=== PATIENT | female | born 1965 | race Caucasian/White ===

== ENCOUNTER 2016-10-25 09:06 | Emergency (ER) | payer OTHER ==
[2016-10-25] MEDS ORDERED: ASPIRIN 81 MG CHEW PO STA (09:29)
[2016-10-25] MEDS ORDERED: MORPHINE SULFATE 2 MG/ML SYRINGE IVP STA (09:29)
[2016-10-25] MEDS ORDERED: SODIUM CHLORIDE 0.9% 1,000 ML IV STA (09:29)
--- NOTE | 2016-10-25 09:39 | ED ---
General Adult HPI - General Chief complaint: Abdominal Pain Stated complaint: abd pain Time Seen by Provider: 10/25/16 09:17 Source: patient, family, RN notes reviewed Mode of arrival: wheelchair Limitations: no limitations - History of Present Illness Initial comments: 50-year-old female presents emergency Department with a chief complaint of nausea vomiting. Patient states that she woke this morning and she developed a terrible pain. Patient points to the bottom of her stomach and to the top where the pain is. Patient states it had nausea vomiting she did feel sweaty as well as diarrhea. Patient states that she hasn't had any fever chills. Patient states she had a similar episode about one week ago she laid down and rested and seemed to resolve. Patient does admit to history of a pacemaker due to sick sinus syndrome. Patient states that her abdomen is not tender to touch. Patient states is just very painful. Patient states it feels like a crampy stabbing pain. Nothing seems to make it better. Patient denies any recent fever, chills, shortness of breath, back pain, numbness or tingling, dysuria or hematuria, constipation, headaches or visual changes, or any other current symptoms. - Related Data Home Medications Medication Instructions Recorded Confirmed ALPRAZolam [Xanax] 2 mg PO HS PRN 10/31/14 10/25/16 Hydrocodone/Acetaminophen [[place] 1 tab PO Q4-6H PRN 01/03/15 10/25/16 10-325] DULoxetine HCL [Cymbalta] 60 mg PO DAILY 10/25/16 10/25/16 Previous Rx's Medication Instructions Recorded Ondansetron Odt [Zofran ODT] 4 mg PO Q8HR PRN #20 tab 10/25/16 Allergies Allergy/AdvReac Type Severity Reaction Status Date / Time No Known Allergies Allergy Verified 10/25/16 09:50 Review of Systems ROS Statement: Those systems with pertinent positive or pertinent negative responses have been documented in the HPI. ROS Other: All systems not noted in ROS Statement are negative. Past Medical History Past Medical History: Cancer, Fibromyalgia, Thyroid Disorder Additional Past Medical History / Comment(s): HYPOTHYROID, LT Breast CA. HX radiation, osteopenia, sick sinus syndrome History of Any Multi-Drug Resistant Organisms: None Reported Past Surgical History: Breast Surgery, Cholecystectomy, Hysterectomy, Pacemaker , Tubal Ligation Additional Past Surgical History / Comment(s): PARTIAL LT MASTECTOMY, Past Anesthesia/Blood Transfusion Reactions: No Reported Reaction Type of Cardiac Device: Permanent Pacemaker Device Placement Date:: 03/09/15 Past Psychological History: Anxiety Smoking Status: Current every day smoker Past Alcohol Use History: Occasional Past Drug Use History: None Reported - Past Family History Father Family Medical History: No Reported History Mother Family Medical History: No Reported History Brother(s) Family Medical History: No Reported History Sister(s) Family Medical History: No Reported History Daughter(s) Family Medical History: No Reported History General Exam - General Exam Comments Initial Comments: General: The patient is awake and alert, in no distress, and does not appear acutely ill. Eye: Pupils are equal, round and reactive to light, extra-ocular movements are intact; there is normal conjunctiva bilaterally. No signs of icterus. Ears, nose, mouth and throat: There are moist mucous membranes and no oral lesions. Neck: The neck is supple, there is no tenderness. Cardiovascular: There is a regular rate and rhythm. No murmur, rub or gallop is appreciated. Respiratory: Lungs are clear to auscultation, respirations are non-labored, breath sounds are equal. No wheezes, stridor, rales, or rhonchi. Gastrointestinal: Soft, non-distended, non-tender abdomen without masses or organomegaly noted. There is no rebound or guarding present. No CVA tenderness. Bowel sounds are unremarkable. Back: There is no tenderness to palpation in the midline. There is no obvious deformity. No rashes noted. Musculoskeletal: Normal ROM, no tenderness, There is no pedal edema. There is no calf tenderness or swelling. Sensation intact. Pulses equal bilaterally 2+. Neurological: CN II-XII intact, There are no obvious motor or sensory deficits. Coordination appears grossly intact. Speech is normal. Skin: Skin is warm and dry and no rashes or lesions are noted. Psychiatric: Cooperative, appropriate mood & affect, normal judgment. Limitations: no limitations Course Vital Signs 10/25/16 09:09 Temperature 97.5 F L Pulse Rate 50 L Respiratory 20 Rate Blood Pressure 136/78 O2 Sat by Pulse 100 Oximetry EKG Findings - EKG Comments: EKG Findings:: Atrial paced rhythm 50bpm, normal axis, no atopy, no S-T depressions or elevations, prolonged QT Medical Decision Making - Medical Decision Making 50-year-old female presents emergency department with a chief complaint of nausea vomiting. Patient complains of chest and abdominal pain with a soft and nontender abdomen. At this time the patient is sleeping the room and states that she is feeling better. This time we will discharge the patient home. We did give her follow-up to GI. We did discuss return parameters. Patient is in agreement plan and all questions have been answered. They'll be discharged home. - Lab Data Result diagrams: 10/25/16 09:31 10/25/16 09:31 Lab Results 10/25/16 10/25/16 10/25/16 Range/Units 09:31 09:31 09:31 WBC 11.0 H (3.8-10.6) k/uL RBC 4.09 (3.80-5.40) m/uL Hgb 13.0 (11.4-16.0) gm/dL Hct 38.6 (34.0-46.0) % MCV 94.5 (80.0-100.0) fL MCH 31.9 (25.0-35.0) pg MCHC 33.8 (31.0-37.0) g/dL RDW 12.5 (11.5-15.5) % Plt Count 210 (150-450) k/uL Neutrophils % 85 % Lymphocytes % 10 % Monocytes % 3 % Eosinophils % 1 % Basophils % 1 % Neutrophils # 9.3 H (1.3-7.7) k/uL Lymphocytes # 1.0 (1.0-4.8) k/uL Monocytes # 0.4 (0-1.0) k/uL Eosinophils # 0.1 (0-0.7) k/uL Basophils # 0.1 (0-0.2) k/uL PT (9.0-12.0) sec INR (<1.1) APTT (22.0-30.0) sec Sodium 143 (137-145) mmol/L Potassium 4.0 (3.5-5.1) mmol/L Chloride 108 H (98-107) mmol/L Carbon Dioxide 26 (22-30) mmol/L Anion Gap 9 mmol/L BUN 16 (7-17) mg/dL Creatinine 0.72 (0.52-1.04) mg/dL Est GFR (MDRD) Af Amer >60 (>60 ml/min/1.73 sqM) Est GFR (MDRD) Non-Af >60 (>60 ml/min/1.73 sqM) Glucose 137 H (74-99) mg/dL Calcium 9.2 (8.4-10.2) mg/dL Magnesium 1.8 (1.6-2.3) mg/dL Total Bilirubin 0.5 (0.2-1.3) mg/dL AST 18 (14-36) U/L ALT 16 (9-52) U/L Alkaline Phosphatase 70 (38-126) U/L Total Creatine Kinase 116 (30-135) U/L CK-MB (CK-2) 0.8 (0.0-2.4) ng/mL CK-MB (CK-2) Rel Index 0.7 Troponin I <0.012 (0.000-0.034) ng/mL Total Protein 6.5 (6.3-8.2) g/dL Albumin 4.0 (3.5-5.0) g/dL Amylase 36 (30-110) U/L Lipase 43 (23-300) U/L Urine Color Urine Appearance (Clear) Urine pH (5.0-8.0) Ur Specific [place] (1.001-1.035) Urine Protein (Negative) Urine Glucose (UA) (Negative) Urine Ketones (Negative) Urine Blood (Negative) Urine Nitrite (Negative) Urine Bilirubin (Negative) Urine Urobilinogen (<2.0) mg/dL Ur Leukocyte Esterase (Negative) Urine WBC (0-5) /hpf Ur Squamous Epith Cells (0-4) /hpf Amorphous Sediment (None) /hpf Urine Mucus (None) /hpf 10/25/16 10/25/16 Range/Units 09:31 10:55 WBC (3.8-10.6) k/uL RBC (3.80-5.40) m/uL Hgb (11.4-16.0) gm/dL Hct (34.0-46.0) % MCV (80.0-100.0) fL MCH (25.0-35.0) pg MCHC (31.0-37.0) g/dL RDW (11.5-15.5) % Plt Count (150-450) k/uL Neutrophils % % Lymphocytes % % Monocytes % % Eosinophils % % Basophils % % Neutrophils # (1.3-7.7) k/uL Lymphocytes # (1.0-4.8) k/uL Monocytes # (0-1.0) k/uL Eosinophils # (0-0.7) k/uL Basophils # (0-0.2) k/uL PT 10.4 (9.0-12.0) sec INR 1.0 (<1.1) APTT 23.8 (22.0-30.0) sec Sodium (137-145) mmol/L Potassium (3.5-5.1) mmol/L Chloride (98-107) mmol/L Carbon Dioxide (22-30) mmol/L Anion Gap mmol/L BUN (7-17) mg/dL Creatinine (0.52-1.04) mg/dL Est GFR (MDRD) Af Amer (>60 ml/min/1.73 sqM) Est GFR (MDRD) Non-Af (>60 ml/min/1.73 sqM) Glucose (74-99) mg/dL Calcium (8.4-10.2) mg/dL Magnesium (1.6-2.3) mg/dL Total Bilirubin (0.2-1.3) mg/dL AST (14-36) U/L ALT (9-52) U/L Alkaline Phosphatase (38-126) U/L Total Creatine Kinase (30-135) U/L CK-MB (CK-2) (0.0-2.4) ng/mL CK-MB (CK-2) Rel Index Troponin I (0.000-0.034) ng/mL Total Protein (6.3-8.2) g/dL Albumin (3.5-5.0) g/dL Amylase (30-110) U/L Lipase (23-300) U/L Urine Color Yellow Urine Appearance Cloudy H (Clear) Urine pH 8.0 (5.0-8.0) Ur Specific [place] 1.010 (1.001-1.035) Urine Protein Negative (Negative) Urine Glucose (UA) Negative (Negative) Urine Ketones 1+ H (Negative) Urine Blood Negative (Negative) Urine Nitrite Negative (Negative) Urine Bilirubin Negative (Negative) Urine Urobilinogen <2.0 (<2.0) mg/dL Ur Leukocyte Esterase Negative (Negative) Urine WBC 2 (0-5) /hpf Ur Squamous Epith Cells 1 (0-4) /hpf Amorphous Sediment Occasional H (None) /hpf Urine Mucus Rare H (None) /hpf Disposition Clinical Impression: Nausea vomiting and diarrhea, Abdominal pain Disposition: HOME SELF-CARE Condition: Stable Instructions: Abdominal Pain (ED) Additional Instructions: Please use medication as discussed. Please follow up with family doctor if symptoms have not improved over the next two days. Please return to the emergency room if your symptoms increase or worsen or for any other concerns. Prescriptions: Ondansetron Odt [Zofran ODT] 4 mg PO Q8HR PRN #20 tab PRN Reason: Nausea Referrals: London Vera DO [Primary Care Provider] - 1-2 days Time of Disposition: 13:31
[2016-10-25] MEDS ORDERED: METOCLOPRAMIDE 5 MG/ML 2 ML VIAL IVP STA (09:46)
[2016-10-25 09:47] LABS: Basophils # (A) 0.1 k/uL (0-0.2); Basophils % (A) 1 %; CH 31.6; CHCM 33.6; Eosinophils # (A) 0.1 k/uL (0-0.7); Eosinophils % (A) 1 %; HCT 38.6 % (34.0-46.0); HDW 2.32; Luc # (Auto) 0.09; Luc % (Auto) 1; Lymphocytes % (A) 10 %; MCH 31.9 pg (25.0-35.0); MCHC 33.8 g/dL (31.0-37.0); MCV 94.5 fL (80.0-100.0); Mean Platelet Volume 7.7; Monocytes # (A) 0.4 k/uL (0-1.0); Monocytes % (A) 3 %; Neutrophils # (A) 9.3 k/uL (1.3-7.7); Neutrophils % (A) 85 %; RBC 4.09 m/uL (3.80-5.40); RDW 12.5 % (11.5-15.5); WBC (Perox) 11.11
[2016-10-25 09:51] LABS: Partial Thromboplastin Time 23.8 sec (22.0-30.0); Prothrombin Time 10.4 sec (9.0-12.0)
[2016-10-25 09:54] LABS: ALT 16 U/L (9-52); AST 18 U/L (14-36); Alkaline Phosphatase 70 U/L (38-126); Amylase 36 U/L (30-110); Anion Gap 9 mmol/L; Blood Urea Nitrogen 16 mg/dL (7-17); Calcium 9.2 mg/dL (8.4-10.2); Carbon Dioxide 26 mmol/L (22-30); Chloride 108 mmol/L (98-107); Glucose 137 mg/dL (74-99); Magnesium 1.8 mg/dL (1.6-2.3); Non-African American GFR(MDRD) >60 (>60 ml/min/1.73 sqM); Sodium 143 mmol/L (137-145); Total Bilirubin 0.5 mg/dL (0.2-1.3); Total Protein 6.5 g/dL (6.3-8.2)
[2016-10-25 10:10] LABS: Creatine Kinase 116 U/L (30-135)
--- NOTE | 2016-10-25 10:17 | XR ---
EXAMINATION TYPE: XR chest 2V DATE OF EXAM: 10/25/2016 COMPARISON: 03/10/2015 HISTORY: Shortness of breath TECHNIQUE: Frontal and lateral views of the chest are obtained. FINDINGS: Scattered senescent parenchymal changes noted. Hyperinflation compatible with COPD. No evidence for infiltrate. No evidence for atelectasis. Heart size is stable. Mediastinal structures are stable and grossly unremarkable. No evidence for hilar prominence. Degenerative changes dorsal spine. IMPRESSION: 1. No evidence for acute pulmonary disease.
[2016-10-25 10:24] LABS: Creatine Kinase MB 0.8 ng/mL (0.0-2.4); Troponin I <0.012 ng/mL (0.000-0.034)
[2016-10-25] MEDS ORDERED: RX INFO: IV CONTRAST WAS GIVEN 1 EACH MISC MISCELLANE PRN (10:58)
[2016-10-25] MEDS ORDERED: MORPHINE SULFATE 4 MG/ML SYRINGE IV STA (10:58)
[2016-10-25] MEDS ORDERED: DICYCLOMINE 10 MG/ML 2 ML AMP IM STA (11:03)
[2016-10-25 11:15] LABS: Amorphous Sediment,Urine Occasional /hpf; Appearance,Urine Cloudy (Clear); Bilirubin,Urine Negative (Negative); Glucose,Urine (UA) Negative (Negative); Ketones,Urine 1+ (Negative); Leukocyte Esterase,Urine Negative (Negative); Mucus,Urine Rare /hpf; Nitrite,Urine Negative (Negative); Particle Count 4814; Protein,Urine Negative (Negative); Squamous Epithelial Cell,Urine 1 /hpf (0-4); UA Billing (MACRO vs. MICRO) MICRO; Urobilinogen,Urine <2.0 mg/dL (<2.0); WBC,Urine 2 /hpf (0-5)
--- NOTE | 2016-10-25 12:08 | CT ---
EXAMINATION TYPE: CT abdomen pelvis w con DATE OF EXAM: 10/25/2016 COMPARISON: NONE INDICATION: nausea and vomitting, pain DLP: 476.6 mGycm, Automated exposure control for dose reduction was used. CONTRAST: 100 mL of Omnipaque 300. Study performed without Oral Contrast TECHNIQUE: Axial images were obtained from above the diaphragm to the pubic rami in the axial plane a t 5 mm thick sections. Reconstructed images are reviewed on the computer in the coronal plane. FINDINGS: Limited CT sections are obtained the lung bases. The lung bases are clear. CT ABDOMEN: Liver: Normal Spleen: Normal Pancreas: Slightly atrophic Adrenal glands: The adrenal glands are normal. Gallbladder: Normal Kidneys: No masses are evident. No hydronephrosis is present. No cysts are present. Delayed images were obtained through the kidneys, which remain unremarkable. Aorta: Vascular calcification is within the aorta. Inferior vena cava: Normal. CT PELVIS: Loops of bowel within the abdomen and pelvis are normal. Study is without oral contrast limiting the evaluation. Appendix: Normal as visualized. Urinary bladder: There may be some wall thickening diffusely. Correlate for cystitis. Genitourinary structures: Uterus and ovaries are not identified. Osseous structures: No suspicious lytic or sclerotic lesions. There is a mild scoliosis present. Some degenerative facet changes are within the lumbar spine. IMPRESSIONS: 1. Urinary bladder wall thickening diffusely. Consider cystitis. 2. Noncontrast imaging through the loops of bowel appear unremarkable.
[2016-10-25] MEDS ORDERED: HYDROmorphone 1 MG/ML 1 ML SYRINGE IVP STA (12:24)
[2016-10-25] MEDS ORDERED: FAMOTIDINE 20 MG/2 ML VIAL IV STA (12:38)
[2016-10-25 13:42] VITALS: BP 115/65; PULSE 57; RESP 18; TEMP 98.3
== END 2016-10-25 13:42 | disposition home or self-care (01) ==
LOC: EC 09:06
DX: R19.7 Diarrhea, unspecified (principal); R10.9 Unspecified abdominal pain; F41.9 Anxiety disorder, unspecified; F17.200 Nicotine dependence, unspecified, uncomplicated; Z85.3 Personal history of malignant neoplasm of breast; Z90.49 Acquired absence of other specified parts of digestive tract; Z79.899 Other long term (current) drug therapy
CPT/HCPCS: 99285; 96365; 96372; 96375 ×4; 96376; 96361; 36415; 93005; 80053; 82150; 82550; 82553; 83690; 83735; 84484; 85025; 85610; 85730; 81001; 71020; 74177; J2270 ×2; J0500; J2765; J0696; J1170; Q9967

== ENCOUNTER 2017-02-05 06:34 | Emergency (ER) | payer OTHER ==
--- NOTE | 2017-02-05 06:45 | ED ---
General Adult HPI - General Source: patient, RN notes reviewed, old records reviewed Mode of arrival: ambulatory Limitations: no limitations <Kerwin Gonzalez - Last Filed: 02/05/17 06:56> <Kerwin Mathews - Last Filed: 02/05/17 08:43> - General Chief complaint: Abdominal Pain Stated complaint: Nausea,Vomiting Time Seen by Provider: 02/05/17 06:45 - History of Present Illness Initial comments: This is a 51-year-old female to the ER for reevaluation ofabdominal pain severe in about pain nausea nausea and vomiting. Patient has had abdominal pain with nausea and vomiting 1 day. Patient does have some underlying history of cancer fibromyalgia. Patient denies fevers. No diarrhea. Patient does have history of gallbladder surgery. Patient states she was in this hospital waffled times this year for abdominal pain and has been unable to find exacerbating cause. (Kerwin Gonzalez) - Related Data Home Medications Medication Instructions Recorded Confirmed ALPRAZolam [Xanax] 2 mg PO HS PRN 10/31/14 02/05/17 Hydrocodone/Acetaminophen [[place] 1 tab PO Q4-6H PRN 01/03/15 02/05/17 10-325] DULoxetine HCL [Cymbalta] 60 mg PO DAILY 10/25/16 02/05/17 Previous Rx's Medication Instructions Recorded Ondansetron Odt [Zofran Odt] 4 mg PO Q6H PRN #10 tab 02/05/17 Allergies Allergy/AdvReac Type Severity Reaction Status Date / Time No Known Allergies Allergy Verified 02/05/17 07:12 Review of Systems ROS Other: All systems not noted in ROS Statement are negative. <Kerwin Gonzalez - Last Filed: 02/05/17 06:56> ROS Other: All systems not noted in ROS Statement are negative. <Kerwin Mathews - Last Filed: 02/05/17 08:43> ROS Statement: Those systems with pertinent positive or pertinent negative responses have been documented in the HPI. Past Medical History Past Medical History: Cancer, Fibromyalgia, Thyroid Disorder Additional Past Medical History / Comment(s): HYPOTHYROID, LT Breast CA. HX radiation, osteopenia, sick sinus syndrome History of Any Multi-Drug Resistant Organisms: None Reported Past Surgical History: Breast Surgery, Cholecystectomy, Hysterectomy, Pacemaker , Tubal Ligation Additional Past Surgical History / Comment(s): PARTIAL LT MASTECTOMY, Past Anesthesia/Blood Transfusion Reactions: No Reported Reaction Type of Cardiac Device: Permanent Pacemaker Device Placement Date:: 03/09/15 Past Psychological History: Anxiety Smoking Status: Current every day smoker Past Alcohol Use History: Occasional Past Drug Use History: None Reported - Past Family History Father Family Medical History: No Reported History Mother Family Medical History: No Reported History Brother(s) Family Medical History: No Reported History Sister(s) Family Medical History: No Reported History Daughter(s) Family Medical History: No Reported History <Kerwin Gonzalez - Last Filed: 02/05/17 06:56> General Exam Limitations: no limitations General appearance: alert, in no apparent distress Head exam: Present: atraumatic, normocephalic, normal inspection Eye exam: Present: normal appearance, PERRL, EOMI. Absent: scleral icterus, conjunctival injection, periorbital swelling ENT exam: Present: normal exam, mucous membranes moist Neck exam: Present: normal inspection. Absent: tenderness, meningismus, lymphadenopathy Respiratory exam: Present: normal lung sounds bilaterally. Absent: respiratory distress, wheezes, rales, rhonchi, stridor Cardiovascular Exam: Present: regular rate, normal rhythm, normal heart sounds. Absent: systolic murmur, diastolic murmur, rubs, gallop, clicks GI/Abdominal exam: Present: soft, normal bowel sounds. Absent: distended, tenderness, guarding, rebound, rigid Extremities exam: Present: normal inspection, full ROM, normal capillary refill. Absent: tenderness, pedal edema, joint swelling, calf tenderness Back exam: Present: normal inspection Neurological exam: Present: alert, oriented X3, CN II-XII intact Psychiatric exam: Present: normal affect, normal mood Skin exam: Present: warm, dry, intact, normal color. Absent: rash <Kerwin Gonzalez - Last Filed: 02/05/17 06:56> Medical Decision Making <Kerwin Gonzalez - Last Filed: 02/05/17 06:56> - Lab Data Result diagrams: 02/05/17 07:00 02/05/17 07:00 <Kerwin Mathews - Last Filed: 02/05/17 08:43> - Medical Decision Making I will begin the room to reevaluate the patient and she stated that she was feeling much better and she felt as though she could go home at this time. (Kerwin Mathews) - Lab Data Lab Results 02/05/17 02/05/17 02/05/17 Range/Units 07:00 07:00 07:00 WBC 13.2 H (3.8-10.6) k/uL RBC 4.41 (3.80-5.40) m/uL Hgb 14.0 (11.4-16.0) gm/dL Hct 42.7 (34.0-46.0) % MCV 96.8 (80.0-100.0) fL MCH 31.8 (25.0-35.0) pg MCHC 32.8 (31.0-37.0) g/dL RDW 12.4 (11.5-15.5) % Plt Count 290 (150-450) k/uL Neutrophils % 85 % Lymphocytes % 9 % Monocytes % 4 % Eosinophils % 1 % Basophils % 0 % Neutrophils # 11.3 H (1.3-7.7) k/uL Lymphocytes # 1.2 (1.0-4.8) k/uL Monocytes # 0.6 (0-1.0) k/uL Eosinophils # 0.1 (0-0.7) k/uL Basophils # 0.0 (0-0.2) k/uL Sodium 141 (137-145) mmol/L Potassium 3.7 (3.5-5.1) mmol/L Chloride 105 (98-107) mmol/L Carbon Dioxide 23 (22-30) mmol/L Anion Gap 13 mmol/L BUN 14 (7-17) mg/dL Creatinine 0.63 (0.52-1.04) mg/dL Est GFR (MDRD) Af Amer >60 (>60 ml/min/1.73 sqM) Est GFR (MDRD) Non-Af >60 (>60 ml/min/1.73 sqM) Glucose 120 H (74-99) mg/dL Plasma Lactic Acid Tj 1.9 (0.7-2.0) mmol/L Calcium 9.6 (8.4-10.2) mg/dL Total Bilirubin 0.5 (0.2-1.3) mg/dL AST 22 (14-36) U/L ALT 27 (9-52) U/L Alkaline Phosphatase 65 (38-126) U/L Total Protein 7.4 (6.3-8.2) g/dL Albumin 4.7 (3.5-5.0) g/dL Amylase <30 L (30-110) U/L Lipase 29 (23-300) U/L Disposition <Kerwin Gonzalez - Last Filed: 02/05/17 06:56> Time of Disposition: 08:42 <Kerwin Mathews - Last Filed: 02/05/17 08:43> Clinical Impression: Acute vomiting, Abdominal pain Disposition: HOME SELF-CARE Instructions: Abdominal Pain (ED), Acute Nausea and Vomiting (ED) Prescriptions: Ondansetron Odt [Zofran Odt] 4 mg PO Q6H PRN #10 tab PRN Reason: Nausea And Vomiting Referrals: London Vera DO [Primary Care Provider] - 1-2 days
[2017-02-05] MEDS ORDERED: MORPHINE SULFATE 4 MG/ML SYRINGE IV STA (06:46)
[2017-02-05] MEDS ORDERED: ONDANSETRON 4 MG/2 ML VIAL IVP STA (06:46)
[2017-02-05] MEDS ORDERED: SODIUM CHLORIDE 0.9% 500 ML IV STA (06:46)
[2017-02-05] MEDS ORDERED: SODIUM CHLORIDE 0.9% 1,000 ML IV STA (06:46)
[2017-02-05] MEDS ORDERED: LORazepam 2 MG/ML INJ IV STA (06:56)
[2017-02-05] MEDS ORDERED: RX INFO: IV CONTRAST WAS GIVEN 1 EACH MISC MISCELLANE PRN (06:56)
[2017-02-05 07:19] LABS: Basophils % (A) 0 %; CH 31.4; CHCM 32.6; Eosinophils # (A) 0.1 k/uL (0-0.7); Eosinophils % (A) 1 %; HCT 42.7 % (34.0-46.0); HDW 2.22; Luc # (Auto) 0.11; Luc % (Auto) 1; Lymphocytes # (A) 1.2 k/uL (1.0-4.8); Lymphocytes % (A) 9 %; MCH 31.8 pg (25.0-35.0); MCHC 32.8 g/dL (31.0-37.0); MCV 96.8 fL (80.0-100.0); Mean Platelet Volume 7.3; Monocytes # (A) 0.6 k/uL (0-1.0); Monocytes % (A) 4 %; Neutrophils # (A) 11.3 k/uL (1.3-7.7); Neutrophils % (A) 85 %; RBC 4.41 m/uL (3.80-5.40); RDW 12.4 % (11.5-15.5); WBC 13.2 k/uL (3.8-10.6); WBC (Perox) 13.71
[2017-02-05 07:24] LABS: ALT 27 U/L (9-52); AST 22 U/L (14-36); Alkaline Phosphatase 65 U/L (38-126); Amylase <30 U/L (30-110); Anion Gap 13 mmol/L; Blood Urea Nitrogen 14 mg/dL (7-17); Calcium 9.6 mg/dL (8.4-10.2); Carbon Dioxide 23 mmol/L (22-30); Chloride 105 mmol/L (98-107); Glucose 120 mg/dL (74-99); Non-African American GFR(MDRD) >60 (>60 ml/min/1.73 sqM); Potassium 3.7 mmol/L (3.5-5.1); Sodium 141 mmol/L (137-145); Total Bilirubin 0.5 mg/dL (0.2-1.3); Total Protein 7.4 g/dL (6.3-8.2)
[2017-02-05 07:59] VITALS: PULSE 55; RESP 18
--- NOTE | 2017-02-05 08:00 | CT ---
EXAMINATION TYPE: CT abdomen pelvis w con DATE OF EXAM: 02/05/2017 COMPARISON: 10/25/2016 HISTORY: 51-year-old female Pain TECHNIQUE: Contiguous axial scanning of the abdomen and pelvis following administration of 100 ml Omn ipaque 300 IV contrast. Delayed images through the kidneys and coronal/sagittal reconstructions perf ormed. CT DLP: 304.1 mGycm Automated exposure control for dose reduction was used. FINDINGS: Heart is normal size without pericardial effusion. A right ventricular pacer lead is seen. Tiny hiatal hernia. There may be some mild gastric fold thickening along the fundus and body. These is a 6 mm hyperdense blush in the left hepatic lobe, axial image 12 which equilibrates on the d elayed kidney images suggesting some vascular shunting. A second similar area is present in the infer ior right hepatic lobe, axial image 25. These were not clearly seen previously. Portal venous system is patent. No biliary ductal dilatation. Patient is status post cholecystectomy. Adrenal glands, right kidney, spleen, and pancreas appear within normal limits. Extrarenal pelvis on the left. No dilated small bowel, free fluid, or free air. No mesenteric or retroperitoneal lymphadenopathy. Normal appendix is seen. Mild circumferential wall thickening at the splenic flexure may relate to un derdistention, axial image 20. There is sigmoid diverticulosis without pericolonic inflammatory richey e. Bladder is urine distended. Small amount of right adnexal free fluid is demonstrated. Neither ovary i s visualized and could be small or surgically absent. Uterus surgically absent. Pelvic phleboliths. Bones: No osseous destructive process. IMPRESSION: 1. Possible mild gastric fold thickening and hyperemia along the fundus and proximal body could refle ct gastritis. Small hiatal hernia. 2. Mild circumferential wall thickening at the splenic flexure could relate to underdistention or con current mild colitis. 3. A couple subcentimeter hypervascular foci in the liver not clearly seen previously. These seem to equilibrate on the delayed kidney images and vascular shunting is suspected. As a precautionary measu re, 6 month follow-up CT recommended given the patient's history of breast cancer. 4. Nonspecific small amount of free fluid in the right pelvis.
[2017-02-05 08:55] VITALS: BP 136/78; TEMP 99.6
== END 2017-02-05 08:53 | disposition home or self-care (01) ==
LOC: EC 06:34
DX: R10.9 Unspecified abdominal pain (principal); R11.10 Vomiting, unspecified; M79.7 Fibromyalgia; F41.9 Anxiety disorder, unspecified; F17.200 Nicotine dependence, unspecified, uncomplicated; Z85.3 Personal history of malignant neoplasm of breast; Z90.49 Acquired absence of other specified parts of digestive tract; Z90.710 Acquired absence of both cervix and uterus; Z98.51 Tubal ligation status; Z79.899 Other long term (current) drug therapy
CPT/HCPCS: 99284 ×2; 96374 ×2; 96375 ×3; 96361 ×3; 36415; 80053; 82150; 83605; 83690; 85025; 74177; J2060; J2270; J2405; Q9967

== ENCOUNTER 2017-02-10 13:07 | Emergency (ER) | payer OTHER ==
[2017-02-10 13:18] VITALS: RESP 18
[2017-02-10] MEDS ORDERED: ONDANSETRON 4 MG/2 ML VIAL IVP STA (13:23)
[2017-02-10] MEDS ORDERED: KETOROLAC 30 MG/ML 1 ML VIAL IVP STA (13:23)
[2017-02-10] MEDS ORDERED: SODIUM CHLORIDE 0.9% 1,000 ML IV STA ×2 (13:23)
[2017-02-10] MEDS ORDERED: MORPHINE SULFATE 4 MG/ML SYRINGE IV STA (13:23)
[2017-02-10] MEDS ORDERED: SODIUM CHLORIDE 0.9% 500 ML IV STA (13:23)
[2017-02-10] MEDS ORDERED: MORPHINE SULFATE 2 MG/ML SYRINGE IV STA (13:27)
[2017-02-10 13:48] LABS: Basophils # (A) 0.1 k/uL (0-0.2); Basophils % (A) 0 %; CH 31.3; CHCM 33.4; Eosinophils # (A) 0.1 k/uL (0-0.7); Eosinophils % (A) 1 %; HCT 39.6 % (34.0-46.0); HDW 2.43; HGB 13.3 gm/dL (11.4-16.0); Luc # (Auto) 0.11; Luc % (Auto) 1; Lymphocytes # (A) 1.2 k/uL (1.0-4.8); Lymphocytes % (A) 11 %; MCH 31.5 pg (25.0-35.0); MCHC 33.5 g/dL (31.0-37.0); Mean Platelet Volume 7.3; Monocytes # (A) 0.4 k/uL (0-1.0); Monocytes % (A) 4 %; Neutrophils # (A) 9.2 k/uL (1.3-7.7); Neutrophils % (A) 84 %; RBC 4.21 m/uL (3.80-5.40); WBC 11.1 k/uL (3.8-10.6); WBC (Perox) 10.66
[2017-02-10 14:00] LABS: Appearance,Urine Clear (Clear); Bilirubin,Urine Negative (Negative); Glucose,Urine (UA) Negative (Negative); Ketones,Urine 1+ (Negative); Leukocyte Esterase,Urine Negative (Negative); Nitrite,Urine Negative (Negative); Protein,Urine Negative (Negative); Specific Gravity,Urine 1.008 (1.001-1.035); UA Billing (MACRO vs. MICRO) CHEM; Urobilinogen,Urine <2.0 mg/dL (<2.0)
[2017-02-10 14:01] LABS: ALT 31 U/L (9-52); AST 20 U/L (14-36); Alkaline Phosphatase 75 U/L (38-126); Anion Gap 11 mmol/L; Blood Urea Nitrogen 6 mg/dL (7-17); Calcium 9.5 mg/dL (8.4-10.2); Carbon Dioxide 26 mmol/L (22-30); Chloride 105 mmol/L (98-107); Glucose 103 mg/dL (74-99); Magnesium 1.7 mg/dL (1.6-2.3); Non-African American GFR(MDRD) >60 (>60 ml/min/1.73 sqM); Phosphorus 2.5 mg/dL (2.5-4.5); Potassium 3.4 mmol/L (3.5-5.1); Sodium 142 mmol/L (137-145); Total Bilirubin 0.5 mg/dL (0.2-1.3); Total Protein 6.8 g/dL (6.3-8.2)
[2017-02-10 14:10] LABS: Creatine Kinase 59 U/L (30-135)
[2017-02-10 14:24] LABS: Creatine Kinase MB 0.5 ng/mL (0.0-2.4); Troponin I <0.012 ng/mL (0.000-0.034)
[2017-02-10 14:25] VITALS: PULSE 68
[2017-02-10] MEDS ORDERED: DICYCLOMINE 10 MG/ML 2 ML AMP IM STA (14:39)
[2017-02-10] MEDS ORDERED: POTASSIUM BICARB-CITRIC ACID 25 MEQ TABLET.EFF PO STA (14:40)
[2017-02-10] MEDS ORDERED: PROCHLORPERAZINE 5 MG TAB PO STA (14:41)
--- NOTE | 2017-02-10 14:46 | ED ---
General Adult HPI - General Chief complaint: Nausea/Vomiting/Diarrhea Stated complaint: Headache Time Seen by Provider: 02/10/17 13:22 Source: patient, EMS, RN notes reviewed, old records reviewed Mode of arrival: EMS Limitations: no limitations - History of Present Illness Initial comments: This is a 51-year-old female to the ER for reevaluation of dull pain, intractable nausea, vomiting. Sudden onset this afternoon. Patient has history of similar episode before. ER visit about a week ago for same. No fevers. No diarrhea. Patient does have history of bowel disease, she has her gallbladder removed as well as a hysterectomy. Patient also take colonoscopy, patient has seen GI in the past - Related Data Home Medications Medication Instructions Recorded Confirmed Hydrocodone/Acetaminophen [[place] 1 tab PO Q4-6H PRN 01/03/15 02/10/17 10-325] DULoxetine HCL [Cymbalta] 60 mg PO DAILY 10/25/16 02/10/17 ALPRAZolam [Xanax] 1 mg PO HS PRN 02/10/17 02/10/17 Previous Rx's Medication Instructions Recorded Ondansetron Odt [Zofran Odt] 4 mg PO Q6H PRN #10 tab 02/05/17 Dicyclomine [Bentyl] 20 mg PO QID #30 tablet 02/10/17 Prochlorperazine [Compazine] 5 mg PO Q6HR PRN #30 tab 02/10/17 Allergies Allergy/AdvReac Type Severity Reaction Status Date / Time No Known Allergies Allergy Verified 02/10/17 13:57 Review of Systems ROS Statement: Those systems with pertinent positive or pertinent negative responses have been documented in the HPI. ROS Other: All systems not noted in ROS Statement are negative. Past Medical History Past Medical History: Cancer, Fibromyalgia, Thyroid Disorder Additional Past Medical History / Comment(s): HYPOTHYROID, LT Breast CA. HX radiation, osteopenia, sick sinus syndrome History of Any Multi-Drug Resistant Organisms: None Reported Past Surgical History: Breast Surgery, Cholecystectomy, Hysterectomy, Pacemaker , Tubal Ligation Additional Past Surgical History / Comment(s): PARTIAL LT MASTECTOMY, Past Anesthesia/Blood Transfusion Reactions: No Reported Reaction Type of Cardiac Device: Permanent Pacemaker Device Placement Date:: 03/09/15 Past Psychological History: Anxiety Smoking Status: Current every day smoker Past Alcohol Use History: Occasional Past Drug Use History: Marijuana - Past Family History Father Family Medical History: No Reported History Mother Family Medical History: No Reported History Brother(s) Family Medical History: No Reported History Sister(s) Family Medical History: No Reported History Daughter(s) Family Medical History: No Reported History General Exam Limitations: no limitations General appearance: alert, in no apparent distress Head exam: Present: atraumatic, normocephalic, normal inspection Eye exam: Present: normal appearance, PERRL, EOMI. Absent: scleral icterus, conjunctival injection, periorbital swelling ENT exam: Present: normal exam, mucous membranes moist Neck exam: Present: normal inspection. Absent: tenderness, meningismus, lymphadenopathy Respiratory exam: Present: normal lung sounds bilaterally. Absent: respiratory distress, wheezes, rales, rhonchi, stridor Cardiovascular Exam: Present: regular rate, normal rhythm, normal heart sounds. Absent: systolic murmur, diastolic murmur, rubs, gallop, clicks GI/Abdominal exam: Present: soft, normal bowel sounds. Absent: distended, tenderness, guarding, rebound, rigid Extremities exam: Present: normal inspection, full ROM, normal capillary refill. Absent: tenderness, pedal edema, joint swelling, calf tenderness Back exam: Present: normal inspection Neurological exam: Present: alert, oriented X3, CN II-XII intact Psychiatric exam: Present: normal affect, normal mood Skin exam: Present: warm, dry, intact, normal color. Absent: rash Course Vital Signs 02/10/17 02/10/17 13:14 14:23 Temperature 97.1 F L Pulse Rate 63 68 Respiratory 18 18 Rate Blood Pressure 117/62 96/53 O2 Sat by Pulse 100 98 Oximetry - Reevaluation(s) Reevaluation #1: 02/10/17 14:45 Upon reevaluation patient's symptoms are resolved Reevaluation #2: 02/10/17 14:45 Prior ER visit has been reviewed Medical Decision Making - Medical Decision Making 51 female date ER for evaluation today. Patient comes for evaluation regarding abdominal pain nausea vomiting. PAtient will follow up with GI - Lab Data Result diagrams: 02/10/17 13:33 02/10/17 13:33 Lab Results 02/10/17 02/10/17 02/10/17 Range/Units 13:33 13:33 13:33 WBC 11.1 H (3.8-10.6) k/uL RBC 4.21 (3.80-5.40) m/uL Hgb 13.3 (11.4-16.0) gm/dL Hct 39.6 (34.0-46.0) % MCV 94.0 (80.0-100.0) fL MCH 31.5 (25.0-35.0) pg MCHC 33.5 (31.0-37.0) g/dL RDW 12.0 (11.5-15.5) % Plt Count 285 (150-450) k/uL Neutrophils % 84 % Lymphocytes % 11 % Monocytes % 4 % Eosinophils % 1 % Basophils % 0 % Neutrophils # 9.2 H (1.3-7.7) k/uL Lymphocytes # 1.2 (1.0-4.8) k/uL Monocytes # 0.4 (0-1.0) k/uL Eosinophils # 0.1 (0-0.7) k/uL Basophils # 0.1 (0-0.2) k/uL Sodium 142 (137-145) mmol/L Potassium 3.4 L (3.5-5.1) mmol/L Chloride 105 (98-107) mmol/L Carbon Dioxide 26 (22-30) mmol/L Anion Gap 11 mmol/L BUN 6 L (7-17) mg/dL Creatinine 0.64 (0.52-1.04) mg/dL Est GFR (MDRD) Af Amer >60 (>60 ml/min/1.73 sqM) Est GFR (MDRD) Non-Af >60 (>60 ml/min/1.73 sqM) Glucose 103 H (74-99) mg/dL Calcium 9.5 (8.4-10.2) mg/dL Phosphorus 2.5 (2.5-4.5) mg/dL Magnesium 1.7 (1.6-2.3) mg/dL Total Bilirubin 0.5 (0.2-1.3) mg/dL AST 20 (14-36) U/L ALT 31 (9-52) U/L Alkaline Phosphatase 75 (38-126) U/L Total Creatine Kinase 59 (30-135) U/L CK-MB (CK-2) 0.5 (0.0-2.4) ng/mL CK-MB (CK-2) Rel Index 0.8 Troponin I <0.012 (0.000-0.034) ng/mL Total Protein 6.8 (6.3-8.2) g/dL Albumin 4.1 (3.5-5.0) g/dL Urine Color Urine Appearance (Clear) Urine pH (5.0-8.0) Ur Specific [place] (1.001-1.035) Urine Protein (Negative) Urine Glucose (UA) (Negative) Urine Ketones (Negative) Urine Blood (Negative) Urine Nitrite (Negative) Urine Bilirubin (Negative) Urine Urobilinogen (<2.0) mg/dL Ur Leukocyte Esterase (Negative) 02/10/17 Range/Units 13:50 WBC (3.8-10.6) k/uL RBC (3.80-5.40) m/uL Hgb (11.4-16.0) gm/dL Hct (34.0-46.0) % MCV (80.0-100.0) fL MCH (25.0-35.0) pg MCHC (31.0-37.0) g/dL RDW (11.5-15.5) % Plt Count (150-450) k/uL Neutrophils % % Lymphocytes % % Monocytes % % Eosinophils % % Basophils % % Neutrophils # (1.3-7.7) k/uL Lymphocytes # (1.0-4.8) k/uL Monocytes # (0-1.0) k/uL Eosinophils # (0-0.7) k/uL Basophils # (0-0.2) k/uL Sodium (137-145) mmol/L Potassium (3.5-5.1) mmol/L Chloride (98-107) mmol/L Carbon Dioxide (22-30) mmol/L Anion Gap mmol/L BUN (7-17) mg/dL Creatinine (0.52-1.04) mg/dL Est GFR (MDRD) Af Amer (>60 ml/min/1.73 sqM) Est GFR (MDRD) Non-Af (>60 ml/min/1.73 sqM) Glucose (74-99) mg/dL Calcium (8.4-10.2) mg/dL Phosphorus (2.5-4.5) mg/dL Magnesium (1.6-2.3) mg/dL Total Bilirubin (0.2-1.3) mg/dL AST (14-36) U/L ALT (9-52) U/L Alkaline Phosphatase (38-126) U/L Total Creatine Kinase (30-135) U/L CK-MB (CK-2) (0.0-2.4) ng/mL CK-MB (CK-2) Rel Index Troponin I (0.000-0.034) ng/mL Total Protein (6.3-8.2) g/dL Albumin (3.5-5.0) g/dL Urine Color Yellow Urine Appearance Clear (Clear) Urine pH 7.0 (5.0-8.0) Ur Specific [place] 1.008 (1.001-1.035) Urine Protein Negative (Negative) Urine Glucose (UA) Negative (Negative) Urine Ketones 1+ H (Negative) Urine Blood Negative (Negative) Urine Nitrite Negative (Negative) Urine Bilirubin Negative (Negative) Urine Urobilinogen <2.0 (<2.0) mg/dL Ur Leukocyte Esterase Negative (Negative) Disposition Clinical Impression: Food poisoning, Abdominal pain, Intractable nausea and vomiting Disposition: HOME SELF-CARE Condition: Good Instructions: Acute Nausea and Vomiting (ED), Abdominal Pain (ED) Prescriptions: Dicyclomine [Bentyl] 20 mg PO QID #30 tablet Prochlorperazine [Compazine] 5 mg PO Q6HR PRN #30 tab PRN Reason: Nausea Referrals: Alessandro Dutton MD [STAFF PHYSICIAN] - 1-2 days Andreia Conner MD [STAFF PHYSICIAN] - 1-2 days
[2017-02-10 15:07] VITALS: BP 116/63; TEMP 98.1
== END 2017-02-10 15:10 | disposition home or self-care (01) ==
LOC: EC 13:07
DX: A05.9 Bacterial foodborne intoxication, unspecified (principal); F41.9 Anxiety disorder, unspecified; F17.200 Nicotine dependence, unspecified, uncomplicated; Z79.899 Other long term (current) drug therapy; Z85.3 Personal history of malignant neoplasm of breast; Z92.3 Personal history of irradiation; Z90.12 Acquired absence of left breast and nipple; Z90.49 Acquired absence of other specified parts of digestive tract
CPT/HCPCS: 99285 ×2; 96374 ×2; 96375 ×3; 96361 ×2; 96372 ×2; 36415; 80053; 82550; 82553; 83735; 84100; 84484; 85025; 81003; S0183; J0500; J2405; J1885; J2270

== ENCOUNTER → 2018-03-03 | Outpatient (CLI) | payer OTHER ==
--- NOTE | 2018-03-03 08:34 | CT ---
EXAMINATION TYPE: CT cervical spine wo con DATE OF EXAM: 03/03/2018 COMPARISON: NONE HISTORY: Cervicalgia per order. Headaches with neck and back pain per patient. CT DLP: 280.9 mGycm. Automated Exposure Control for Dose Reduction was Utilized. TECHNIQUE: CT scan of the cervical spine is obtained without contrast, axial images are obtained, sa gittal and coronal reformatted images are also reviewed. FINDINGS: Cervical spine is visualized in its entirety from C1 through upper thoracic levels, demonst rates satisfactory alignment without evidence of acute fracture or dislocation. Prevertebral soft ti ssue appears within normal limits. The C1-C2 articulation is within normal limits on the coronal rufino ges. Osseous structures are demineralized. Vertebral body heights and disc space heights however are maintained. No large posterior disc herniations are seen on sagittal images. No significant spurring is noted. There is small right foraminal spur disc complex causing asymmetric mild right-sided neural foraminal narrowing series 9 image 44 and sagittal image 18 series 12. Review of axial images otherwise shows no significant spinal canal stenosis or neural foraminal narrowing at any cervical level. Thyroid gla nd is felt within normal limits in size. Visualized lung apices show mild to moderate pleural/parench ymal scarring. There is partial visualization of pacemaker wires. IMPRESSION: There is small spur disc complex causing mild right-sided neural foraminal narrowing C4-C 5 level.
== END | disposition home or self-care (01) ==
LOC: RADCTMAIN 07:29
PROVIDERS: ATTEND Psychiatry & Neurology Neurology
DX: M99.71 Connective tissue and disc stenosis of intervertebral foramina of cervical region (principal)
CPT/HCPCS: 72125

== ENCOUNTER → 2018-06-15 | Outpatient (CLI) | payer OTHER ==
--- NOTE | 2018-06-15 09:33 | CT ---
EXAMINATION TYPE: CT thoracic spine wo con DATE OF EXAM: 06/15/2018 COMPARISON: None HISTORY: Mid back pain CT DLP: 409.8 mGycm Automated exposure control for dose reduction was used. TECHNIQUE: Axial images 3 mm thick sections. Reconstructed images in the coronal and sagittal plane. FINDINGS: Vertebral body heights are preserved. There is mild disc space narrowing which appears chronic. Coupl e of some minimal vacuum disc. No significant disc bulging is evident. No spinal canal stenosis prese nt. No focal disc herniations are identified. There is some slight exaggeration of the thoracic kypho sis within the mid thoracic spine. IMPRESSION: 1. THORACIC KYPHOSIS. 2. MILD DEGENERATIVE DISC CHANGES.
== END | disposition home or self-care (01) ==
LOC: RADCTMAIN 07:39
PROVIDERS: ATTEND Psychiatry & Neurology Neurology
DX: M47.814 Spondylosis without myelopathy or radiculopathy, thoracic region (principal); M40.204 Unspecified kyphosis, thoracic region
CPT/HCPCS: 72128

== ENCOUNTER 2018-08-26 16:32 | Inpatient (IN) | payer OTHER ==
[2018-08-26] MEDS ORDERED: SODIUM CHLORIDE 0.9% 1,000 ML IV STA (17:40)
--- NOTE | 2018-08-26 17:44 | ED ---
General Adult HPI - General Chief complaint: Dizziness Stated complaint: dizzy Time Seen by Provider: 08/26/18 17:07 Source: patient, family, RN notes reviewed Mode of arrival: wheelchair Limitations: no limitations - History of Present Illness Initial comments: Patient is a pleasant 52-year-old female presenting to the emergency department with concern for dizziness. Onset of symptoms was 10 AM at yoga. Patient feels like her whole body is spinning. Patient states symptoms are worse when she gets up and moves around. Daughter is concerned that patient appears off balance. Patient was somewhat slow to respond earlier. Patient states she feel s like her left arm is heavy. Patient states she noticed her left arm being heavy just after this, maybe 10:30 AM. Symptoms have been steady throughout the day. Patient did have a dizziness episode years ago that was somewhat similar. Patient does have associated nausea. - Related Data Home Medications Medication Instructions Recorded Confirmed ALPRAZolam [Xanax] 1 mg PO HS PRN 02/10/17 08/26/18 Cyclobenzaprine [Flexeril] 10 mg PO TID PRN 08/26/18 08/26/18 HYDROcodone/APAP 7.5-325MG [[place] 1 tab PO BID PRN 08/26/18 08/26/18 7.5-325] Ibuprofen [Motrin] 800 mg PO TID PRN 08/26/18 08/26/18 SUMAtriptan SUCCINATE [Imitrex] 50 mg PO BID PRN 08/26/18 08/26/18 Allergies Allergy/AdvReac Type Severity Reaction Status Date / Time No Known Allergies Allergy Verified 08/26/18 18:03 Review of Systems ROS Statement: Those systems with pertinent positive or pertinent negative responses have been documented in the HPI. ROS Other: All systems not noted in ROS Statement are negative. Constitutional: Denies: fever Eyes: Denies: eye pain ENT: Denies: ear pain Respiratory: Denies: cough Cardiovascular: Denies: chest pain Endocrine: Denies: fatigue Gastrointestinal: Denies: abdominal pain Genitourinary: Denies: dysuria Musculoskeletal: Denies: back pain Skin: Denies: rash Neurological: Reports: as per HPI, vertigo. Denies: headache Past Medical History Past Medical History: Cancer, Fibromyalgia, Thyroid Disorder Additional Past Medical History / Comment(s): HYPOTHYROID, LT Breast CA. HX radiation, osteopenia, sick sinus syndrome History of Any Multi-Drug Resistant Organisms: None Reported Past Surgical History: Breast Surgery, Cholecystectomy, Hysterectomy, Pacemaker, Tubal Ligation Additional Past Surgical History / Comment(s): PARTIAL LT MASTECTOMY, Past Anesthesia/Blood Transfusion Reactions: No Reported Reaction Type of Cardiac Device: Permanent Pacemaker Device Placement Date:: 03/09/15 Past Psychological History: Anxiety Smoking Status: Current every day smoker Past Alcohol Use History: Occasional Past Drug Use History: Marijuana - Past Family History Father Family Medical History: No Reported History Mother Family Medical History: No Reported History Brother(s) Family Medical History: No Reported History Sister(s) Family Medical History: No Reported History Daughter(s) Family Medical History: No Reported History General Exam Limitations: no limitations General appearance: alert, in no apparent distress Head exam: Present: atraumatic, normocephalic Eye exam: Present: normal appearance, PERRL, EOMI. Absent: nystagmus ENT exam: Present: normal oropharynx Neck exam: Present: normal inspection Respiratory exam: Present: normal lung sounds bilaterally Cardiovascular Exam: Present: regular rate, normal rhythm GI/Abdominal exam: Present: soft. Absent: tenderness Extremities exam: Present: normal inspection Neurological exam: Present: alert, oriented X3, CN II-XII intact Expanded Neurological exam: Present: protecting the airway Patient oriented to: Present: person, place, time Speech: Present: fluid speech Cranial nerves: EOM's Intact: Normal, Facial Sensation: Normal Cerebellar function: Finger to Nose: Normal Sensory exam: Upper Extremity Light Touch: Normal, Lower Extremity Light Touch: Normal Motor strength exam: RUE: 5, LUE: 4, RLE: 5, LLE: 4 Eye Response: (4) open spontaneously Motor Response: (6) obeys commands Verbal Response: (5) oriented Psychiatric exam: Present: normal affect, normal mood Skin exam: Present: normal color Course Vital Signs 08/26/18 08/26/18 08/26/18 17:02 17:45 18:00 Temperature 98.1 F Pulse Rate 73 70 74 Respiratory 18 18 18 Rate Blood Pressure 99/62 95/72 99/61 O2 Sat by Pulse 98 100 98 Oximetry 08/26/18 08/26/18 08/26/18 18:15 18:30 18:45 Temperature Pulse Rate 71 70 70 Respiratory 18 18 18 Rate Blood Pressure 110/88 106/73 99/71 O2 Sat by Pulse 96 98 96 Oximetry 08/26/18 19:00 Temperature Pulse Rate 67 Respiratory 18 Rate Blood Pressure 112/90 O2 Sat by Pulse 96 Oximetry - Reevaluation(s) Reevaluation #1: 08/26/18 17:43 Code stroke was called. Patient is not a TPA candidate secondary to onset of symptoms greater than 4 and half hours. EKG Findings - EKG Comments: EKG Findings:: Normal sinus rhythm 71. [place] 172. QRS 86. QT 416. QTc 452. Normal axis. Normal QRS. No acute ST change. Medical Decision Making - Medical Decision Making Patient reevaluated and resting comfortably in bed without significant change. Patient is updated on results and plan. Case was discussed in detail with Dr. Rodriguez, who will admit covering for Dr. Wade. Case was earlier discussed with Dr. rodriguez who agreed patient is not a TPA candidate. - Lab Data Result diagrams: 08/26/18 17:50 08/26/18 17:50 Lab Results 08/26/18 08/26/18 08/26/18 Range/Units 17:50 17:50 17:50 WBC 6.6 (3.8-10.6) k/uL RBC 3.91 (3.80-5.40) m/uL Hgb 10.9 L (11.4-16.0) gm/dL Hct 37.0 (34.0-46.0) % MCV 94.5 (80.0-100.0) fL MCH 27.9 (25.0-35.0) pg MCHC 29.5 L (31.0-37.0) g/dL RDW 12.3 (11.5-15.5) % Plt Count 277 (150-450) k/uL Neutrophils % 53 % Lymphocytes % 36 % Monocytes % 5 % Eosinophils % 3 % Basophils % 1 % Neutrophils # 3.5 (1.3-7.7) k/uL Lymphocytes # 2.4 (1.0-4.8) k/uL Monocytes # 0.3 (0-1.0) k/uL Eosinophils # 0.2 (0-0.7) k/uL Basophils # 0.1 (0-0.2) k/uL PT (9.0-12.0) sec INR (<1.2) APTT (22.0-30.0) sec Sodium 141 (137-145) mmol/L Potassium 3.8 (3.5-5.1) mmol/L Chloride 107 (98-107) mmol/L Carbon Dioxide 29 (22-30) mmol/L Anion Gap 5 mmol/L BUN 14 (7-17) mg/dL Creatinine 0.59 (0.52-1.04) mg/dL Est GFR (CKD-EPI)AfAm >90 (>60 ml/min/1.73 sqM) Est GFR (CKD-EPI)NonAf >90 (>60 ml/min/1.73 sqM) Glucose 94 (74-99) mg/dL Calcium 9.4 (8.4-10.2) mg/dL Total Bilirubin 0.2 (0.2-1.3) mg/dL AST 22 (14-36) U/L ALT 22 (9-52) U/L Alkaline Phosphatase 57 (38-126) U/L Total Creatine Kinase 85 (30-135) U/L CK-MB (CK-2) 0.5 (0.0-2.4) ng/mL CK-MB (CK-2) Rel Index 0.6 Troponin I <0.012 (0.000-0.034) ng/mL Total Protein 6.1 L (6.3-8.2) g/dL Albumin 3.8 (3.5-5.0) g/dL 08/26/18 Range/Units 17:50 WBC (3.8-10.6) k/uL RBC (3.80-5.40) m/uL Hgb (11.4-16.0) gm/dL Hct (34.0-46.0) % MCV (80.0-100.0) fL MCH (25.0-35.0) pg MCHC (31.0-37.0) g/dL RDW (11.5-15.5) % Plt Count (150-450) k/uL Neutrophils % % Lymphocytes % % Monocytes % % Eosinophils % % Basophils % % Neutrophils # (1.3-7.7) k/uL Lymphocytes # (1.0-4.8) k/uL Monocytes # (0-1.0) k/uL Eosinophils # (0-0.7) k/uL Basophils # (0-0.2) k/uL PT 10.0 (9.0-12.0) sec INR 0.9 (<1.2) APTT 24.5 (22.0-30.0) sec Sodium (137-145) mmol/L Potassium (3.5-5.1) mmol/L Chloride (98-107) mmol/L Carbon Dioxide (22-30) mmol/L Anion Gap mmol/L BUN (7-17) mg/dL Creatinine (0.52-1.04) mg/dL Est GFR (CKD-EPI)AfAm (>60 ml/min/1.73 sqM) Est GFR (CKD-EPI)NonAf (>60 ml/min/1.73 sqM) Glucose (74-99) mg/dL Calcium (8.4-10.2) mg/dL Total Bilirubin (0.2-1.3) mg/dL AST (14-36) U/L ALT (9-52) U/L Alkaline Phosphatase (38-126) U/L Total Creatine Kinase (30-135) U/L CK-MB (CK-2) (0.0-2.4) ng/mL CK-MB (CK-2) Rel Index Troponin I (0.000-0.034) ng/mL Total Protein (6.3-8.2) g/dL Albumin (3.5-5.0) g/dL - Radiology Data Radiology results: report reviewed Critical Care Time Critical Care Time: Yes Total Critical Care Time: 32 Disposition Clinical Impression: CVA (cerebral vascular accident) Disposition: ADMITTED IP TO THIS HOSP Is patient prescribed a controlled substance at d/c from ED?: No Referrals: London Vera DO [Primary Care Provider] - 1-2 days Decision Time: 19:57
--- NOTE | 2018-08-26 18:10 | CT ---
EXAMINATION: CT brain wo con DATE AND TIME: 08/26/2018 6:00 PM CLINICAL INDICATION: PHH; Neuro Deficits TECHNIQUE: Standard departmental protocol.; Code stroke COMPARISON: 02/24/2017 FINDINGS: The calvarium is intact. There is no intracranial hemorrhage. There is no intracranial mass or mass effect. No definite new intra-axial or extra-axial attenuation defect. The paranasal sinuses, middle ear cavities, and mastoid sinus air cells are clear. The orbits are unremarkable. IMPRESSION: NO ACUTE PROCESS.
[2018-08-26 18:12] LABS: Basophils # (A) 0.1 k/uL (0-0.2); Basophils % (A) 1 %; Eosinophils # (A) 0.2 k/uL (0-0.7); Eosinophils % (A) 3 %; HGB 10.9 gm/dL (11.4-16.0); Lymphocytes # (A) 2.4 k/uL (1.0-4.8); Lymphocytes % (A) 36 %; MCH 27.9 pg (25.0-35.0); MCHC 29.5 g/dL (31.0-37.0); MCV 94.5 fL (80.0-100.0); Monocytes # (A) 0.3 k/uL (0-1.0); Monocytes % (A) 5 %; Neutrophils # (A) 3.5 k/uL (1.3-7.7); Neutrophils % (A) 53 %; Platelet Count 277 k/uL (150-450); RBC 3.91 m/uL (3.80-5.40); RDW 12.3 % (11.5-15.5); WBC 6.6 k/uL (3.8-10.6)
[2018-08-26 18:14] LABS: INR 0.9 (<1.2); Partial Thromboplastin Time 24.5 sec (22.0-30.0)
[2018-08-26 18:16] LABS: ALT 22 U/L (9-52); AST 22 U/L (14-36); Albumin 3.8 g/dL (3.5-5.0); Alkaline Phosphatase 57 U/L (38-126); Anion Gap 5 mmol/L; Blood Urea Nitrogen 14 mg/dL (7-17); Calcium 9.4 mg/dL (8.4-10.2); Carbon Dioxide 29 mmol/L (22-30); Chloride 107 mmol/L (98-107); Glucose 94 mg/dL (74-99); Potassium 3.8 mmol/L (3.5-5.1); Sodium 141 mmol/L (137-145); Total Bilirubin 0.2 mg/dL (0.2-1.3); Total Protein 6.1 g/dL (6.3-8.2)
[2018-08-26 18:18] LABS: Creatine Kinase 85 U/L (30-135)
[2018-08-26 18:31] LABS: Creatine Kinase MB 0.5 ng/mL (0.0-2.4); Troponin I <0.012 ng/mL (0.000-0.034)
--- NOTE | 2018-08-26 18:46 | CT ---
EXAMINATION TYPE: CT angio head neck with contrast and with 3-D Reconstruction rendering DATE OF EXAM: 08/26/2018 HISTORY: dizziness COMPARISON: CT head without contrast 08/26/2018 at 5:[address] DLP: 249.2 mGycm. Automated Exposure Control for Dose Reduction was Utilized. TECHNIQUE: CTA scan of the neck is performed with IV Contrast, patient injected with 60 mL of Isovue 370, axial images are obtained, coronal and sagittal reformatted images are reviewed. Three-D recons tructed images are created on an independent workstation and reviewed. FINDINGS: Carotid and vertebral arterial systems are bilaterally widely patent without dissection or aneurysm o r focal stenosis. Venous structures unremarkable. Soft tissues of the neck negative for mass or sharri opathy. Airway unremarkable. Visualized upper chest unremarkable. Intracranial anterior and posterior circulation are widely patent bilaterally, without dissection or aneurysm or focal stenosis. Intra-axial and extra-axial compartment evaluation unremarkable. No incid entals. IMPRESSION: No significant abnormality is seen.
--- NOTE | 2018-08-26 19:52 | XR ---
EXAMINATION: XR chest 2V DATE AND TIME: 08/26/2018 7:11 PM CLINICAL INDICATION: PHH; altered mental status TECHNIQUE: Departmental protocol COMPARISON: None FINDINGS: The lungs are clear. The pleural spaces are negative. Cardiac pacemaker redemonstrated. The cardiac silhouette is not enlarged. The remainder of the medias tinal silhouette is unremarkable. The skeletal structures are negative for acute findings. Soft tissues are negative for acute findings, left partial mastectomy clips redemonstrated. IMPRESSION: NO ACUTE PROCESS.
[2018-08-26] MEDS ORDERED: ASPIRIN 325 MG TAB PO STA (19:58)
[2018-08-26] MEDS ORDERED: METOCLOPRAMIDE 5 MG/ML 2 ML VIAL IVP STA (19:59)
[2018-08-26] MEDS ORDERED: MECLIZINE 12.5 MG TAB PO STA (19:59)
[2018-08-26] MEDS: SODIUM CHLORIDE 0.9% 1,000 ML IV SCH (20:37)
[2018-08-26 21:41] VITALS: BMI 19.3
[2018-08-26] MEDS: HYDROcodone/APAP 7.5-325MG 1 EACH TAB PO PRN (23:15)
[2018-08-26] MEDS: ALPRAZolam 1 MG TAB PO PRN (23:15)
[2018-08-27 05:48] LABS: Cholesterol 155 mg/dL (<200); HDL Cholesterol 34 mg/dL (40-60); LDL Cholesterol,Calculated 80 mg/dL (0-99); Triglycerides 206 mg/dL (<150)
[2018-08-27] MEDS: ASPIRIN 325 MG TAB PO SCH (08:33)
[2018-08-27] MEDS: SODIUM CHLORIDE 0.9% 1,000 ML IV SCH (08:33)
[2018-08-27] MEDS: HYDROcodone/APAP 7.5-325MG 1 EACH TAB PO PRN ×2 (08:43→20:44)
[2018-08-27] MEDS: MECLIZINE 25 MG TAB PO PRN ×2 (12:52→20:44)
[2018-08-27] MEDS ORDERED: IBUPROFEN 800 MG TAB PO PRN (12:54)
--- NOTE | 2018-08-27 12:59 | P.HPIM ---
History of Present Illness H&P Date: 08/27/18 Chief Complaint: Dizziness, left arm heavy This is a 52-year-old female patient of Dr. Vera with past medical history significant for ductal carcinoma left breast status post lumpectomy and radiation, 6 sinus syndrome requiring pacemaker in February 2015, thyroiditis, chronic headaches under the care of Dr. Lyons. Patient gives history that she occasionally has dizzy spells when she got up in the morning she was having another dizzy spell and she thought this was related to not eating breakfast. She went to yoga class yesterday and the dizziness became worse. She felt like she was falling even when she was sitting on the floor. She denies any visual changes. She states that the anatomy and physiology instructor noticed a facial droop on the left side and her left arm felt heavy. She is thinks the symptoms happen in the past and thought were anxiety related. She complains of a little bit of headache across her forehead which she gets frequently and follows with Dr. Lyons's office. She does have Imitrex available and has started injections in the past that did not help. Patient came into the [facility] emergency center for evaluation. CTA of the head showed no significant abnormality. CT of the brain was negative. Chest x-ray negative. Hemoglobin was 10.9, electrolytes, renal function and liver function tests all within normal limits. Triglycerides 206, cholesterol 155, LDL 80, HDL 34. Initial blood pressure 99/62, heart rate in the 70s, pulse ox 98% on room air. Patient has been afebrile. Patient has been admitted to the cardiac stepdown unit and neurology consult obtained with Dr. Wright. Echocardiogram is pending. The patient did receive 1 dose of meclizine 50 mg and she states the dizziness improved somewhat from this medication. We will add an meclizine. Review of Systems Constitutional: Denies anorexia, Denies chills, Denies fatigue, Denies fever, Denies lethargy, Denies malaise, Denies poor appetite, Denies weakness, Denies weight loss Eyes: denies blurred vision, denies pain Ears, nose, mouth and throat: Reports vertigo, Denies dysphagia, Denies hoarseness, Denies mouth pain, Denies nasal congestion, Denies nasal discharge, Denies sore throat Cardiovascular: Denies chest pain, Denies decreased exercise tolerance, Denies dyspnea on exertion, Denies edema, Denies lightheadedness, Denies syncope Respiratory: Denies congestion, Denies cough, Denies cough with sputum, Denies dyspnea, Denies excessive sputum, Denies hemoptysis, Denies home oxygen, Denies wheezing Gastrointestinal: Denies diarrhea, Denies loss of appetite, Denies nausea, Denies vomiting Genitourinary: Denies dysuria, Denies hematuria Musculoskeletal: Denies myalgias Integumentary: Denies pruritus, Denies rash, Denies wounds Neurological: Reports headaches, Reports migraines, Reports vertigo, Denies aphasia, Denies change in mentation, Denies change in speech, Denies confusion, Denies double vision, Denies gait dysfunction, Denies head injury, Denies loss of vision, Denies seizures, Denies syncope Psychiatric: Denies anxiety, Denies depression Endocrine: Denies fatigue, Denies weight change Hematologic/Lymphatic: Reports as per HPI Past Medical History Past Medical History: Cancer, Fibromyalgia, Thyroid Disorder Additional Past Medical History / Comment(s): HYPOTHYROID, LT Breast CA. HX radiation, osteopenia, sick sinus syndrome History of Any Multi-Drug Resistant Organisms: None Reported Past Surgical History: Breast Surgery, Cholecystectomy, Hysterectomy, Pacemaker, Tubal Ligation Additional Past Surgical History / Comment(s): PARTIAL LT MASTECTOMY, colonoscopy with benign findings. Left breast lumpectomy and radiation, dual- chamber pacemaker placement Past Anesthesia/Blood Transfusion Reactions: No Reported Reaction Type of Cardiac Device: Permanent Pacemaker Device Placement Date:: 03/09/15 Past Psychological History: Anxiety Additional Psychological History / Comment(s): clausterphobia Smoking Status: Current every day smoker Past Alcohol Use History: Occasional Additional Past Alcohol Use History / Comment(s): started smoking 14- smokes 1/2 ppd since she was a teenager. She does have a medical marijuana card and smokes marijuana and uses edibles. She drinks alcohol rarely. Past Drug Use History: Marijuana Additional Drug Use History / Comment(s): medical marijuana, - Past Family History Father Family Medical History: No Reported History Additional Family Medical History / Comment(s): Father is alive but she does not know his medical history. Mother Family Medical History: No Reported History Additional Family Medical History / Comment(s): Mother is alive at age 74 with no major medical problems. Brother(s) Family Medical History: No Reported History Additional Family Medical History / Comment(s): The patient has 1 brother with no major medical problems. Sister(s) Family Medical History: No Reported History Additional Family Medical History / Comment(s): Patient has one sister and she has irritable bowel syndrome. Daughter(s) Family Medical History: No Reported History Additional Family Medical History / Comment(s): Patient has one daughter with no major medical problems. Medications and Allergies Home Medications Medication Instructions Recorded Confirmed Type ALPRAZolam [Xanax] 1 mg PO HS PRN 02/10/17 08/26/18 History Cyclobenzaprine [Flexeril] 10 mg PO TID PRN 08/26/18 08/26/18 History HYDROcodone/APAP 7.5-325MG [[place] 1 tab PO BID PRN 08/26/18 08/26/18 History 7.5-325] Ibuprofen [Motrin] 800 mg PO TID PRN 08/26/18 08/26/18 History SUMAtriptan SUCCINATE [Imitrex] 50 mg PO BID PRN 08/26/18 08/26/18 History Allergies Allergy/AdvReac Type Severity Reaction Status Date / Time No Known Allergies Allergy Verified 08/26/18 18:03 Physical Exam Vitals: Vital Signs Temp Pulse Pulse Resp BP BP Pulse Ox 08/27/18 08:00 97.9 F 61 16 94/55 98 08/27/18 04:00 98.1 F 52 L 18 93/52 96 08/27/18 00:00 98.2 F 55 L 18 96/68 97 08/26/18 21:12 98.4 F 20 98/86 97 08/26/18 20:49 72 18 116/74 98 08/26/18 20:30 65 18 103/73 98 08/26/18 19:00 67 18 112/90 96 08/26/18 18:45 70 18 99/71 96 08/26/18 18:30 70 18 106/73 98 08/26/18 18:15 71 18 110/88 96 08/26/18 18:00 74 18 99/61 98 08/26/18 17:45 70 18 95/72 100 08/26/18 17:02 98.1 F 73 18 99/62 98 Intake and Output 08/26/18 08/27/18 08/27/18 22:59 06:59 14:59 Intake Total 400 240 Balance 400 240 Intake: Intake, IV Titration 400 Amount Sodium Chloride 0.9% 1, 400 000 ml @ 100 mls/hr IV . Q10H ÁNGEL Rx#:[id number] Oral 240 Other: # Voids 1 2 Weight 51.256 kg 50.4 kg Gen: This is a thin 52-year-old female. Patient is resting in bed appears to be comfortable and in no acute distress. HEENT: Head is atraumatic, normocephalic. Pupils equal, round. Sclerae is anicteric. NECK: Supple. No JVD. No lymphadenopathy. No thyromegaly. LUNGS: Clear to auscultation. No wheezes or rhonchi. No intercostal retractions. HEART: Regular rate and rhythm. No murmur. ABDOMEN: Soft. Bowel sounds are present. No masses. No tenderness. EXTREMITIES: No pedal edema. No calf tenderness. NEUROLOGICAL: Patient is awake, alert and oriented x3. Cranial nerves 2 through 12 are grossly intact. Strength 4 out of 5 on the left upper extremity and 5 out of 5 on the right upper extremity. Bilateral lower external May strength 5 out of 5. Babinski negative bilaterally. Finger-nose test slightly abnormal on the left. Results CBC & Chem 7: 08/26/18 17:50 08/26/18 17:50 Labs: Abnormal Lab Results - Last 24 Hours (Table) 08/26/18 08/26/18 08/26/18 Range/Units 17:50 17:50 17:50 Hgb 10.9 L (11.4-16.0) gm/dL MCHC 29.5 L (31.0-37.0) g/dL Total Protein 6.1 L (6.3-8.2) g/dL Triglycerides 206 H (<150) mg/dL HDL Cholesterol 34 L (40-60) mg/dL Thrombosis Risk Factor Assmnt - DVT/VTE Prophylaxis DVT/VTE Prophylaxis: Pharmacologic Prophylaxis ordered - Choose All That Apply Each Factor Represents 1 point: Age 41-60 years Other Risk Factors: No Thrombosis Risk Factor Assessment Total Risk Factor Score: 1 Thrombosis Risk Factor Assessment Level: Low Risk Assessment and Plan Plan: 1. Dizziness with left arm heaviness and reported facial droop, rule out CVA. Consult with Dr. Kyle weeks. Patient may require repeat CAT scan of the brain. Echocardiogram has been ordered. Continue neuro exams. Continue aspirin. 2. Migraine headaches under the care of Dr. Lyons's office. Patient on Imitrex as needed, Flexeril 10 mg 3 times daily as needed, ibuprofen as needed. 3. History of left breast cancer status post lumpectomy and radiation therapy, stable. 4. Fibromyalgia, stable. 5. Tobacco use and dependence. Nicotine patch. 6. Sick sinus syndrome status post pacemaker placement, stable. 7. Hypothyroidism. Check TSH, free T4. 8. Tobacco use and dependence. Nicotine patch. 9. GI prophylaxis. Pepcid. 10. DVT prophylaxis. SCDs and CADENCE hose. Patient will be admitted to the hospital for a minimum of 2 night stay. Discharge plan: Discharge home tomorrow Impression and plan of care have been directed as dictated by the signing physi deisy. Helene Villa nurse practitioner acting as scribe for signing physician.
--- NOTE | 2018-08-27 13:21 | P.CNNES ---
History of Present Illness Consult date: 08/27/18 Reason for Consult: CVA Chief complaint: CVA History of Present Illness: patient is a 52-year-old female, who states that she woke up yesterday morning at 5 AM and felt dizzy, which is not unusual for her. Her head feels swimming at times. She went back to bed, and woke up at 8:30 AM, and then got ready to go to yoga. Her symptoms started to get worse at around 1045 with severe dizziness, eyes feeling funny, could see, but difficulty focusing. Patient's one of the sister saw her at 1:30 PM, and noticed that she was having issues with her balance, was wobbly, leaning to the left, unsteady on feet. when she came in at 4:30 PM, noticed patient was having some slurring of speech, speaking words slowly, slightly disoriented,therefore was brought to the hospital at 4:30 PM. Patient was not a candidate for TPA, as she came outside the window. Patient underwent computed tomography scan of the head, which was normal. She had CTA of head and neck, which showed no large vessel occlusion. chest x-ray was normal. EKG showed normal sinus rhythm. Her blood pressure showed WBC 6.6 hemoglobin 10.9, platelets 277, PT/PTT normal scans have been normal. liver functions normal. CPK normal. Troponin negative. Total cholesterol 155, LDL 80, HDL 34. her last hemoglobin A1c 5.5 on 02/27/2018. Patient also notices some dysphagia, as if food is sticking on the throat. She also was feeling left-sided weakness, numbness, left arm feels heavy. Patient denies diabetes or hypertension. She has smoked half pack per day for 30 years. Denies alcoholism or drug use. Patient was not taking any antiplatelet medication at home. Review of Systems Constitutional: Reports as per HPI, Reports weakness, Denies chills, Denies fever Eyes: bilateral blurred vision, denies diplopia Ears: deny: earache Cardiovascular: Denies leg edema Respiratory: Denies cough Musculoskeletal: Denies low back pain Neurological: Reports as per HPI Past Medical History Past Medical History: Cancer, Fibromyalgia, Thyroid Disorder Additional Past Medical History / Comment(s): HYPOTHYROID, LT Breast CA. HX radiation, osteopenia, sick sinus syndrome History of Any Multi-Drug Resistant Organisms: None Reported Past Surgical History: Breast Surgery, Cholecystectomy, Hysterectomy, Pacemaker, Tubal Ligation Additional Past Surgical History / Comment(s): PARTIAL LT MASTECTOMY, Past Anesthesia/Blood Transfusion Reactions: No Reported Reaction Type of Cardiac Device: Permanent Pacemaker Device Placement Date:: 03/09/15 Past Psychological History: Anxiety Additional Psychological History / Comment(s): clausterphobia Smoking Status: Current every day smoker Past Alcohol Use History: Occasional Additional Past Alcohol Use History / Comment(s): started smoking 14- smokes 1/2 ppd Past Drug Use History: Marijuana Additional Drug Use History / Comment(s): medical marijuana, - Past Family History Father Family Medical History: No Reported History Mother Family Medical History: No Reported History Brother(s) Family Medical History: No Reported History Sister(s) Family Medical History: No Reported History Daughter(s) Family Medical History: No Reported History Medications and Allergies Home Medications Medication Instructions Recorded Confirmed Type ALPRAZolam [Xanax] 1 mg PO HS PRN 02/10/17 08/26/18 History Cyclobenzaprine [Flexeril] 10 mg PO TID PRN 08/26/18 08/26/18 History HYDROcodone/APAP 7.5-325MG [[place] 1 tab PO BID PRN 08/26/18 08/26/18 History 7.5-325] Ibuprofen [Motrin] 800 mg PO TID PRN 08/26/18 08/26/18 History SUMAtriptan SUCCINATE [Imitrex] 50 mg PO BID PRN 08/26/18 08/26/18 History Allergies Allergy/AdvReac Type Severity Reaction Status Date / Time No Known Allergies Allergy Verified 08/26/18 18:03 Physical Examination - Vital Signs Vital Signs: Vital Signs Temp Pulse Pulse Resp BP BP Pulse Ox 08/27/18 11:14 97.8 F 60 18 101/57 99 08/27/18 08:00 97.9 F 61 16 94/55 98 08/27/18 04:00 98.1 F 52 L 18 93/52 96 08/27/18 00:00 98.2 F 55 L 18 96/68 97 08/26/18 21:12 98.4 F 20 98/86 97 08/26/18 20:49 72 18 116/74 98 08/26/18 20:30 65 18 103/73 98 08/26/18 19:00 67 18 112/90 96 08/26/18 18:45 70 18 99/71 96 08/26/18 18:30 70 18 106/73 98 08/26/18 18:15 71 18 110/88 96 08/26/18 18:00 74 18 99/61 98 08/26/18 17:45 70 18 95/72 100 08/26/18 17:02 98.1 F 73 18 99/62 98 Intake and Output 08/26/18 08/27/18 08/27/18 22:59 06:59 14:59 Intake Total 400 240 Balance 400 240 Intake: Intake, IV Titration 400 Amount Sodium Chloride 0.9% 1, 400 000 ml @ 100 mls/hr IV . Q10H ÁNGEL Rx#:[id number] Oral 240 Other: # Voids 1 2 Weight 51.256 kg 50.4 kg on examination patient is a middle aged female, in no distress. She is alert and awake. Speech and language functions are normal. On cranial nerve examination, right pupil is slightly smaller than the left, but both are round and reactive to light, visual rojas are full, patient has very subtle left facial asymmetry. Tongue protrudes midline palatal elevation and sensation normal. On muscle strength testing there is no pronator drift. The strength is normal in the right arm and right leg. On the left side, her deltoid is normal, biceps 5-, engine installer 4, hip flexion 5-, knee normal, ankle dorsiflexion normal. Sensations are equal in the legs, but slightly decreased in the left arm. Patient appears ataxic for [id number] on the left. Tone and bulk of muscles normal. Results - Laboratory Findings CBC and BMP: 08/26/18 17:50 08/26/18 17:50 Abnormal Lab Findings: Abnormal Labs 08/26/18 08/26/18 08/26/18 17:50 17:50 17:50 Hgb 10.9 L MCHC 29.5 L Total Protein 6.1 L Triglycerides 206 H HDL Cholesterol 34 L Assessment and Plan Assessment: * Possible CVA. * Tobacco users * Dyslipidemia * History of sick sinus syndrome, status post pacemaker placement. * Previous history of breast cancer, in remission Plan: Patient cannot have MRI due to placement of pacemaker. Her CTA of head and neck is normal. We will check 2-D echo with bubble study to rule out PFO. Joseph bowers's hemoglobin A1c is normal. Agree with starting aspirin 325 mg daily. PT OT evaluate gait. Speech therapy has seen the patient. Tobacco cessation. We will follow clinically.
[2018-08-27] MEDS: NICOTINE 14MG/24HR PATCH TRANSDERM SCH (15:33)
--- NOTE | 2018-08-27 16:01 | ECHOF ---
Referral Reason:Thrombus MEASUREMENTS -------- HEIGHT: 162.6 cm WEIGHT: 50.4 kg BP: 93/52 IVSd: 0.6 cm (0.6 - 1.1) LVIDd: 3.9 cm (3.9 - 5.3) LVPWd: 0.9 cm (0.6 - 1.1) IVSs: 1.1 cm LVIDs: 2.4 cm LVPWs: 1.3 cm RVIDd: 2.8 cm (< 3.3) LAESV Index (A-L): 17.96 ml/m Ao Diam: 3.2 cm (2.0 - 3.7) LA Diam: 2.3 cm (2.7 - 3.8) AV Cusp: 1.6 cm (1.5 - 2.6) EPSS: 0.2 cm MV E Adrien: 0.99 m/s MV DecT: 203 ms MV A Adrien: 0.56 m/s MV E/A Ratio: 1.78 RAP: 5.00 mmHg RVSP: 18.87 mmHg MV EF SLOPE: 150.77 mm/s (70 - 150) MV EXCURSION: 15.51 mm (> 18.000) FINDINGS -------- Pacerwire seen in RV and RA. This was a technically good study. The left ventricular size is normal. Left ventricular wall thickness is normal. Overall left vent ricular systolic function is normal with, an EF between 55 - 60 %. The right ventricle is normal in size. The left atrial size is normal. The right atrial size is normal. The aortic valve is trileaflet and appears structurally normal. Mild mitral regurgitation is present. Trace tricuspid regurgitation present. The right ventricular systolic pressure, as measured by Dopp ler, is 18.87mmHg. There is no pulmonic regurgitation present. The aortic root size is normal. Normal inferior vena cava with normal inspiratory collapse consistent with estimated right atrial pre ssure of 5 mmHg. There is no pericardial effusion. CONCLUSIONS -------- 1. Pacerwire seen in RV and RA. 2. This was a technically good study. 3. The left ventricular size is normal. 4. Left ventricular wall thickness is normal. 5. Overall left ventricular systolic function is normal with, an EF between 55 - 60 %. 6. The right ventricle is normal in size. 7. The left atrial size is normal. 8. The right atrial size is normal. 9. The aortic valve is trileaflet and appears structurally normal. 10. Mild mitral regurgitation is present. 11. Trace tricuspid regurgitation present. 12. The right ventricular systolic pressure, as measured by Doppler, is 18.87mmHg. 13. There is no pulmonic regurgitation present. 14. The aortic root size is normal. 15. Normal inferior vena cava with normal inspiratory collapse consistent with estimated right atrial pressure of 5 mmHg. 16. There is no pericardial effusion. SIGN WRITER HAND: Kimmy Ramos RDCS
[2018-08-27] MEDS: ALPRAZolam 1 MG TAB PO PRN (23:10)
[2018-08-28] MEDS ORDERED: SODIUM CHLORIDE 0.9% 500 ML 500 ML IV ONE (05:17)
[2018-08-28] MEDS: MECLIZINE 25 MG TAB PO PRN ×2 (05:27→22:41)
[2018-08-28] MEDS: SODIUM CHLORIDE 0.9% 1,000 ML IV SCH ×2 (05:27→16:11)
[2018-08-28] MEDS: CYCLOBENZAPRINE 10 MG TAB PO PRN (08:25)
[2018-08-28] MEDS: HYDROcodone/APAP 7.5-325MG 1 EACH TAB PO PRN ×2 (08:25→22:41)
[2018-08-28] MEDS: FAMOTIDINE 20 MG TAB PO SCH (08:26)
[2018-08-28] MEDS: ASPIRIN 325 MG TAB PO SCH (08:26)
[2018-08-28] MEDS: NICOTINE 14MG/24HR PATCH TRANSDERM SCH (08:26)
--- NOTE | 2018-08-28 13:14 | CT ---
EXAMINATION TYPE: CT brain wo con DATE OF EXAM: 08/28/2018 HISTORY: Dizziness and fall. CT DLP: 969 mGycm. Automated Exposure Control for Dose Reduction was Utilized. TECHNIQUE: CT scan of the head is performed without contrast. COMPARISON: CT brain 2 days ago. FINDINGS: There is no acute intracranial hemorrhage or midline shift identified. Ventricles and sul ci are normal in size. Carver-white matter differentiation is maintained. The globes are intact and th e visualized sinuses are clear. IMPRESSION: No acute intracranial hemorrhage or midline shift. No significant change from prior.
--- NOTE | 2018-08-28 13:49 | P.PN ---
Subjective Progress Note Date: 08/28/18 Patient continues to have dizziness, left-sided weakness. Patient had a carotid Doppler, which is normal. 2-D echo also normal. Ejection fraction 55-60%. Left atrial size is normal. Patient had a repeat computed tomography scan of head performed today, which is also normal. Objective - Vital Signs Vital signs: Vital Signs Temp 98.2 F 08/28/18 00:05 Pulse 78 08/28/18 00:05 Resp 16 08/28/18 00:05 BP 98/60 08/28/18 06:21 Pulse Ox 97 08/28/18 00:05 Intake & Output 08/27/18 08/28/18 08/28/18 18:59 06:59 18:59 Intake Total 720 800 Balance 720 800 Intake: Intake, IV Titration 800 Amount Sodium Chloride 0.9% 1, 800 000 ml @ 100 mls/hr IV . Q10H ÁNGEL Rx#:[id number] Oral 720 Other: # Voids 2 2 - Exam On examination patient's mental status, speech and linguistic functions are normal. Cranial nerves are significant for left ptosis, possible left mild Crista's. Left facial droop. Tongue protrudes to the midline. Visual rojas are full and extraocular muscles are intact. On muscle strength testing, saqib ronquillo has normal strength on the right side. 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 Patient continues to have mild ataxia for [id number] testing on the left side. - Labs CBC & Chem 7: 08/26/18 17:50 08/26/18 17:50 Assessment and Plan Assessment: * Possible CVA. * Tobacco users * Dyslipidemia * History of sick sinus syndrome, status post pacemaker placement. * Previous history of breast cancer, in remission Plan: Patient cannot have MRI due to placement of pacemaker. Her CTA of head and neck is normal. 2-D echo is normal. Repeat computed tomography scan of the head from this morning also showed no acute process. Patient possibly had a small lacunar stroke, not visible on the computed tomography scan of head. Patient's hemoglobin A1c is normal. Continue aspirin 325 mg daily. Meclizine for dizziness. PT OT evaluate gait. Consider transfer to inpatient rehab. Tobacco cessation. We will follow clinically.
--- NOTE | 2018-08-28 14:10 | P.PN ---
Subjective Progress Note Date: 08/28/18 This is a 52-year-old female patient of Dr. Vera with past medical history significant for ductal carcinoma left breast status post lumpectomy and radiation, 6 sinus syndrome requiring pacemaker in February 2015, thyroiditis, chronic headaches under the care of Dr. Lyons. Patient gives history that she occasionally has dizzy spells when she got up in the morning she was having another dizzy spell and she thought this was related to not eating breakfast. She went to yoga class yesterday and the dizziness became worse. She felt like she was falling even when she was sitting on the floor. She denies any visual changes. She states that the first aid instructor noticed a facial droop on the left side and her left arm felt heavy. She is thinks the symptoms happen in the past and thought were anxiety related. She complains of a little bit of headache across her forehead which she gets frequently and follows with Dr. Lyons's office. She does have Imitrex available and has sta rted injections in the past that did not help. Patient came into the [facility] emergency center for evaluation. CTA of the head showed no significant abnormality. CT of the brain was negative. Chest x-ray negative. Hemoglobin was 10.9, electrolytes, renal function and liver function tests all within normal limits. Triglycerides 206, cholesterol 155, LDL 80, HDL 34. Initial blood pressure 99/62, heart rate in the 70s, pulse ox 98% on room air. Patient has been afebrile. Patient has been admitted to the cardiac stepdown unit and neurology consult obtained with Dr. Wright. Echocardiogram is pending. The patient did receive 1 dose of meclizine 50 mg and she states the dizziness improved somewhat from this medication. We will add an meclizine. 08/28: Patient continues to have same symptoms without any significant improvement despite meclizine. We have ordered a repeat CAT scan of the brain which came back negative with no acute findings. Echocardiogram revealed EF of 55-60%. We will start the patient on IV steroids. Neurology has not ruled out small lacuna r stroke not visible on CT. We will plan to monitor patient overnight and possible discharge for tomorrow. Due to patient's gait dysfunction, Walker has been ordered. Review of Systems Constitutional: Denies anorexia, Denies chills, Denies fatigue, Denies fever, Denies lethargy, Denies malaise, Denies poor appetite, Denies weakness, Denies weight loss Eyes: denies blurred vision, denies pain Ears, nose, mouth and throat: Reports vertigo, Denies dysphagia, Denies hoarseness, Denies mouth pain, Denies nasal congestion, Denies nasal discharge, Denies sore throat Cardiovascular: Denies chest pain, Denies decreased exercise tolerance, Denies dyspnea on exertion, Denies edema, Denies lightheadedness, Denies syncope Respiratory: Denies congestion, Denies cough, Denies cough with sputum, Denies dyspnea, Denies excessive sputum, Denies hemoptysis, Denies home oxygen, Denies wheezing Gastrointestinal: Denies diarrhea, Denies loss of appetite, Denies nausea, Denies vomiting Genitourinary: Denies dysuria, Denies hematuria Musculoskeletal: Denies myalgias Integumentary: Denies pruritus, Denies rash, Denies wounds Neurological: Reports headaches, Reports migraines, Reports vertigo, Denies aphasia, Denies change in mentation, Denies change in speech, Denies confusion, Denies double vision, reports gait dysfunction, Denies head injury, Denies loss of vision, Denies seizures, Denies syncope Psychiatric: Denies anxiety, Denies depression Endocrine: Denies fatigue, Denies weight change Hematologic/Lymphatic: Reports as per HPI Objective - Vital Signs Vital signs: Vital Signs Temp 98.2 F 08/28/18 00:05 Pulse 78 08/28/18 00:05 Resp 16 08/28/18 00:05 BP 98/60 08/28/18 06:21 Pulse Ox 97 08/28/18 00:05 Intake & Output 08/27/18 08/28/18 08/28/18 18:59 06:59 18:59 Intake Total 720 800 Balance 720 800 Intake: Intake, IV Titration 800 Amount Sodium Chloride 0.9% 1, 800 000 ml @ 100 mls/hr IV . Q10H ÁNGEL Rx#:[id number] Oral 720 Other: # Voids 2 2 - Exam Gen: This is a thin 52-year-old female. Patient is resting in bed appears to be comfortable and in no acute distress. HEENT: Head is atraumatic, normocephalic. Pupils equal, round. Sclerae is anicteric. NECK: Supple. No JVD. No lymphadenopathy. No thyromegaly. LUNGS: Clear to auscultation. No wheezes or rhonchi. No intercostal retractions. HEART: Regular rate and rhythm. No murmur. ABDOMEN: Soft. Bowel sounds are present. No masses. No tenderness. EXTREMITIES: No pedal edema. No calf tenderness. NEUROLOGICAL: Patient is awake, alert and oriented x3. Cranial nerves 2 through 12 are grossly intact. Strength 5 out of 5 on the bilateral upper extremity. Bilateral lower extremity strength 5 out of 5. - Labs CBC & Chem 7: 08/26/18 17:50 08/26/18 17:50 Assessment and Plan Plan: 1. Dizziness with left arm heaviness and reported facial droop, rule out CVA possible small lacunar infarct, possible vestibular neuronitis. Consult with Dr. Kyle weeks. Repeat CAT scan of the brain and echocardiogram are normal. Patient will be started on IV Solu-Medrol 40 mg every 8 hours 3 doses. Continue aspirin 325 mg daily. 2. Migraine headaches under the care of Dr. Lyons's office. Patient on Imitrex as needed, Flexeril 10 mg 3 times daily as needed, ibuprofen as needed. 3. History of left breast cancer status post lumpectomy and radiation therapy, stable. 4. Fibromyalgia, stable. 5. Tobacco use and dependence. Nicotine patch. 6. Sick sinus syndrome status post pacemaker placement, stable. 7. Hypothyroidism. Check TSH, free T4. 8. Tobacco use and dependence. Nicotine patch. 9. GI prophylaxis. Pepcid. 10. DVT prophylaxis. SCDs and CADENCE hose. Discharge plan: Discharge home tomorrow Impression and plan of care have been directed as dictated by the signing physician. Helene Villa nurse practitioner acting as scribe for signing physician.
[2018-08-28] MEDS: methylPREDNISolone SOD SUCCI 40 MG/ML 1 ML VIAL IV SCH ×2 (16:11→23:21)
[2018-08-28] MEDS: ALPRAZolam 1 MG TAB PO PRN (22:41)
[2018-08-29] MEDS: SODIUM CHLORIDE 0.9% 1,000 ML IV SCH ×3 (02:41→16:40)
[2018-08-29] MEDS ORDERED: SODIUM CHLORIDE 0.9% 500 ML 500 ML IV ONE (05:05)
[2018-08-29] MEDS: FAMOTIDINE 20 MG TAB PO SCH (07:46)
[2018-08-29] MEDS: ASPIRIN 325 MG TAB PO SCH (07:46)
[2018-08-29] MEDS: methylPREDNISolone SOD SUCCI 40 MG/ML 1 ML VIAL IV SCH (07:46)
[2018-08-29] MEDS: HYDROcodone/APAP 7.5-325MG 1 EACH TAB PO PRN ×2 (07:50→16:37)
[2018-08-29] MEDS: CYCLOBENZAPRINE 10 MG TAB PO PRN (07:50)
[2018-08-29] MEDS: MECLIZINE 25 MG TAB PO PRN ×2 (08:28→20:07)
[2018-08-29] MEDS: NICOTINE 14MG/24HR PATCH TRANSDERM SCH (09:16)
[2018-08-29] MEDS: CLOPIDOGREL 75 MG TAB PO SCH (12:38)
--- NOTE | 2018-08-29 13:05 | P.DS ---
Providers Date of admission: 08/26/18 19:58 Expected date of discharge: 08/31/18 Attending physician: Niesha Rodriguez Consults: 08/26/18 19:58 Consult Physician Urgent Consulting Provider: Rigoberto Wright Consult Reason/Comments: cva Do you want consulting provider notified?: Yes Primary care physician: [facility] Course: This is a 52-year-old female patient of Dr. Vera with past medical history significant for ductal carcinoma left breast status post lumpectomy and radiation, 6 sinus syndrome requiring pacemaker in February 2015, thyroiditis, chronic headaches under the care of Dr. Lyons. Patient gives history that she occasionally has dizzy spells when she got up in the morning she was having another dizzy spell and she thought this was related to not eating breakfast. She went to yoga class yesterday and the dizziness became worse. She felt like she was falling even when she was sitting on the floor. She denies any visual changes. She states that the hvac instructor noticed a facial droop on the left side and her left arm felt heavy. She is thinks the symptoms happen in the past and thought were anxiety related. She complains of a little bit of headache across her forehead which she gets frequently and follows with Dr. Lyons's office. She does have Imitrex available and has started injections in the past that did not help. Patient came into the [facility] emergency center for evaluation. CTA of the head showed no significant abnormality. CT of the brain was negative. Chest x-ray negative. Hemoglobin was 10.9, electrolytes, renal function and liver function tests all within normal limits. Triglycerides 206, cholesterol 155, LDL 80, HDL 34. Initial blood pressure 99/62, heart rate in the 70s, pulse ox 98% on room air. Patient has been afebrile. Patient has been admitted to the cardiac stepdown unit and neurology consult obtained with Dr. Wright. Echocardiogram is pending. The patient did receive 1 dose of meclizine 50 mg and she states the dizziness improved somewhat from this medication. We will add an meclizine. 08/28: Patient continues to have same symptoms without any significant improvement despite meclizine. We have ordered a repeat CAT scan of the brain which came back negative with no acute findings. Echocardiogram revealed EF of 55-60%. We will start the patient on IV steroids. Neurology has not ruled out small lacunar stroke not visible on CT. We will plan to monitor patient overnight and possible discharge for tomorrow. Due to patient's gait dysfunction, Walker has been ordered. 08/29: Patient continues to have dizziness and gait dysfunction. She is very concerned and does not understand why she is not improving. She did receive 3 doses of IV steroids without any improvement and meclizine is not making any improvement as well. Currently checking into whether patient can have MRI at [facility] with pacemaker. If so, patient will be transferred to [facility] for this testing. We have made medication changes to include adding and Lipitor, discontinued. Aspirin and started Plavix and baby aspirin. Anticipate patient will be transferred to [facility] later today. (Patient was not transferred to [facility] as it was unable to be determined if patient could undergo an MRI with her current pacemaker.) 08/30: Patient states the dizziness is better today from yesterday. We are PT OT and speech therapy in place. We will add in a consult for Dr. Meyers. The patient will plan for outpatient MRI at a later date. IV fluids will be discontinued as well as telemetry. Anticipate possible discharge tomorrow. She has been afebrile, heart rate in the 60s to 80s, blood pressure 89/51 and pulse ox 97% on room air. 08/31: Patient has been seen by Dr. Meyers and we are awaiting repeat therapy notes today and recommend evaluating stairs. Physical therapy is evaluated and recommended home with home care or outpatient. [facility] has been [facility] from [facility]. Patient is planning to go home with home care in place and have MRI done as an outpatient. Patient has been instructed by neurology for no driving. Orthostatics were negative. Patient will be discharged home today in stable condition. Discharge diagnoses: 1. Dizziness with left arm heaviness and reported facial droop, possible lacunar infarct. 2. Migraine headaches under the care of Dr. Lyons's office. 3. History of left breast cancer status post lumpectomy and radiation therapy, stable. 4. Fibromyalgia, stable. 5. Tobacco use and dependence. 6. Sick sinus syndrome status post pacemaker placement, stable. 7. Hypothyroidism. 8. Gait disturbance secondary Discharge plan: Home with homecare Impression and plan of care have been directed as dictated by the signing physician. Helene Villa nurse practitioner acting as scribe for signing physician. Patient Condition at Discharge: Good Plan - Discharge Summary New Discharge Prescriptions: New RX: Meclizine [Antivert] 25 mg PO TID PRN tab PRN Reason: Vertigo RX: Aspirin 81 mg PO DAILY chew RX: Nicotine 14Mg/24Hr Patch [Habitrol] 1 patch TRANSDERM DAILY #30 patch RX: Atorvastatin [Lipitor] 40 mg PO HS #30 tab RX: Clopidogrel [Plavix] 75 mg PO DAILY #30 tab Continue RX: ALPRAZolam [Xanax] 1 mg PO HS PRN PRN Reason: Insomnia RX: Cyclobenzaprine [Flexeril] 10 mg PO TID PRN PRN Reason: Muscle Spasm RX: HYDROcodone/APAP 7.5-325MG [[place] 7.5-325] 1 tab PO BID PRN PRN Reason: Pain RX: SUMAtriptan SUCCINATE [Imitrex] 50 mg PO BID PRN PRN Reason: Migraine Headache Discontinued Ibuprofen [Motrin] 800 mg PO TID PRN PRN Reason: Pain Discharge Medication List RX: ALPRAZolam [Xanax] 1 mg PO HS PRN 02/10/17 [History] RX: Cyclobenzaprine [Flexeril] 10 mg PO TID PRN 08/26/18 [History] RX: HYDROcodone/APAP 7.5-325MG [[place] 7.5-325] 1 tab PO BID PRN 08/26/18 [History] RX: SUMAtriptan SUCCINATE [Imitrex] 50 mg PO BID PRN 08/26/18 [History] RX: Aspirin 81 mg PO DAILY chew 08/31/18 [Rx] RX: Atorvastatin [Lipitor] 40 mg PO HS #30 tab 08/31/18 [Rx] RX: Clopidogrel [Plavix] 75 mg PO DAILY #30 tab 08/31/18 [Rx] RX: Meclizine [Antivert] 25 mg PO TID PRN tab 08/31/18 [Rx] RX: Nicotine 14Mg/24Hr Patch [Habitrol] 1 patch TRANSDERM DAILY #30 patch 08/31/18 [Rx] Follow up Appointment(s)/Referral(s): [facility] [NON-STAFF] - 1 Week London Vera DO [Primary Care Provider] - 09/18/18 8:00 am Kaya Lyons MD [Medical Doctor] - 2 Weeks Patient Instructions/Handouts: Clopidogrel (By mouth), How to Stop Smoking (DC), Stroke (DC) Activity/Diet/Wound Care/Special Instructions: Schedule MRI of the brain with and without contrast as an outpatient with MRI center that is compatible with her pacemaker. pt will be sent home with a rolling walker from [facility] Disposition: HOME WITH HOME HEALTH SERVICES
--- NOTE | 2018-08-29 15:44 | P.PN ---
Subjective Progress Note Date: 08/29/18 Patient continues to have dizziness, left-sided weakness. Patient had a carotid Doppler, which is normal. 2-D echo also normal. Ejection fraction 55-60%. Left atrial size is normal. Patient had a repeat computed tomography scan of head performed today, which is also normal. Objective - Vital Signs Vital signs: Vital Signs Temp 97.9 F 08/29/18 12:06 Pulse 82 08/29/18 12:06 Resp 16 08/29/18 12:06 BP 99/55 08/29/18 12:06 Pulse Ox 100 08/29/18 12:06 Intake & Output 08/28/18 08/29/18 08/29/18 18:59 06:59 18:59 Intake Total 800 1180 400 Balance 800 1180 400 Intake: Intake, IV Titration 800 Amount Sodium Chloride 0.9% 1, 800 000 ml @ 100 mls/hr IV . Q10H ÁNGEL Rx#:[id number] Oral 1180 400 Other: # Voids 2 2 - Exam On examination patient's mental status, speech and linguistic functions are normal. Cranial nerves are significant for left ptosis, possible left mild Crista's. Left facial droop, better than yesterday. Tongue protrudes to the midline. Visual rojas are full and extraocular muscles are intact. On muscle strength testing, patient has normal strength on the right side. On the left side, has mild weakness, slightly better than yesterday. The left-sided ataxia has improved. - Labs CBC & Chem 7: 08/26/18 17:50 08/26/18 17:50 Assessment and Plan Assessment: * Possible CVA. * Tobacco users * Dyslipidemia * History of sick sinus syndrome, status post pacemaker placement. * Previous history of breast cancer, in remission Plan: Patient cannot have MRI due to placement of pacemaker. Her CTA of head and neck is normal. 2-D echo is normal. Repeat computed tomography scan of the head also showed no acute process. Patient possibly had a small lacunar stroke, not visible on the computed tomography scan of head. Patient's hemoglobin A1c is normal. Because of persistent symptoms, will switch to dual antiplatelet medication, with aspirin 81 mg and Plavix 75 mg. Meclizine for dizziness. PT OT evaluate gait. Consider transfer to inpatient rehab. Tobacco cessation. Patient wants to have MRI, which cannot be performed at this facility. Patient may have to be transferred to [facility]. However she is being treated for probable stroke, independent from the results of MRI. Discuss with PCP in detail.
[2018-08-29] MEDS: ATORVASTATIN 40 MG TAB PO SCH (20:00)
[2018-08-29] MEDS: SUMAtriptan SUCCINATE 50 MG TAB PO PRN (20:07)
[2018-08-29] MEDS: ALPRAZolam 1 MG TAB PO PRN (22:59)
[2018-08-30] MEDS: CLOPIDOGREL 75 MG TAB PO SCH (07:49)
[2018-08-30] MEDS: CYCLOBENZAPRINE 10 MG TAB PO PRN (07:49)
[2018-08-30] MEDS: ASPIRIN 81 MG PO SCH (07:49)
[2018-08-30] MEDS: FAMOTIDINE 20 MG TAB PO SCH (07:49)
[2018-08-30] MEDS: HYDROcodone/APAP 7.5-325MG 1 EACH TAB PO PRN (07:49)
[2018-08-30] MEDS: NICOTINE 14MG/24HR PATCH TRANSDERM SCH (07:51)
--- NOTE | 2018-08-30 09:46 | P.PN ---
Subjective Progress Note Date: 08/30/18 This is a 52-year-old female patient of Dr. Vera with past medical history significant for ductal carcinoma left breast status post lumpectomy and radiation, 6 sinus syndrome requiring pacemaker in February 2015, thyroiditis, chronic headaches under the care of Dr. Lyons. Patient gives history that she occasionally has dizzy spells when she got up in the morning she was having another dizzy spell and she thought this was related to not eating breakfast. She went to yoga class yesterday and the dizziness became worse. She felt like she was falling even when she was sitting on the floor. She denies any visual changes. She states that the commercial sewing instructor noticed a facial droop on the left side and her left arm felt heavy. She is thinks the symptoms happen in the past and thought were anxiety related. She complains of a little bit of headache across her forehead which she gets frequently and follows with Dr. Lyons's office. She does have Imitrex available and has sta rted injections in the past that did not help. Patient came into the [facility] emergency center for evaluation. CTA of the head showed no significant abnormality. CT of the brain was negative. Chest x-ray negative. Hemoglobin was 10.9, electrolytes, renal function and liver function tests all within normal limits. Triglycerides 206, cholesterol 155, LDL 80, HDL 34. Initial blood pressure 99/62, heart rate in the 70s, pulse ox 98% on room air. Patient has been afebrile. Patient has been admitted to the cardiac stepdown unit and neurology consult obtained with Dr. Wright. Echocardiogram is pending. The patient did receive 1 dose of meclizine 50 mg and she states the dizziness improved somewhat from this medication. We will add an meclizine. 08/28: Patient continues to have same symptoms without any significant improvement despite meclizine. We have ordered a repeat CAT scan of the brain which came back negative with no acute findings. Echocardiogram revealed EF of 55-60%. We will start the patient on IV steroids. Neurology has not ruled out small lacuna r stroke not visible on CT. We will plan to monitor patient overnight and possible discharge for tomorrow. Due to patient's gait dysfunction, Walker has been ordered. 08/29: Patient continues to have dizziness and gait dysfunction. She is very concerned and does not understand why she is not improving. She did receive 3 doses of IV steroids without any improvement and meclizine is not making any improvement as well. Currently checking into whether patient can have MRI at [facility] with pacemaker. If so, patient will be transferred to [facility] for this testing. We have made medication changes to include adding and Lipitor, discontinued. Aspirin 325 mg was discontinued and started Plavix and baby aspirin. Anticipate patient will be transferred to [facility] later today. Review of Systems Constitutional: Denies anorexia, Denies chills, Denies fatigue, Denies fever, Denies lethargy, Denies malaise, Denies poor appetite, Denies weakness, Denies weight loss, reports dizziness Eyes: denies blurred vision, denies pain Ears, nose, mouth and throat: Reports vertigo, Denies dysphagia, Denies hoarseness, Denies mouth pain, Denies nasal congestion, Denies nasal discharge, Denies sore throat Cardiovascular: Denies chest pain, Denies decreased exercise tolerance, Denies dyspnea on exertion, Denies edema, Denies lightheadedness, Denies syncope Respiratory: Denies congestion, Denies cough, Denies cough with sputum, Denies dyspnea, Denies excessive sputum, Denies hemoptysis, Denies home oxygen, Denies wheezing Gastrointestinal: Denies diarrhea, Denies loss of appetite, Denies nausea, Den ies vomiting Genitourinary: Denies dysuria, Denies hematuria Musculoskeletal: Denies myalgias Integumentary: Denies pruritus, Denies rash, Denies wounds Neurological: Reports headaches, Reports migraines, Reports vertigo, Denies aphasia, Denies change in mentation, Denies change in speech, Denies confusion, Denies double vision, reports gait dysfunction, Denies head injury, Denies loss of vision, Denies seizures, Denies syncope Psychiatric: Denies anxiety, Denies depression Endocrine: Denies fatigue, Denies weight change Hematologic/Lymphatic: Reports as per HPI Objective - Vital Signs Vital signs: Vital Signs Temp 97.6 F 08/29/18 05:57 Pulse 92 08/29/18 08:05 Resp 16 08/29/18 05:57 BP 109/73 08/29/18 08:05 Pulse Ox 98 08/29/18 05:57 Intake & Output 08/28/18 08/29/18 08/29/18 18:59 06:59 18:59 Intake Total 800 1180 Balance 800 1180 Intake: Intake, IV Titration 800 Amount Sodium Chloride 0.9% 1, 800 000 ml @ 100 mls/hr IV . Q10H ÁNGEL Rx#:[id number] Oral 1180 Other: # Voids 2 - Exam Gen: This is a thin 52-year-old female. Patient is resting in bed appears to be comfortable and in no acute distress. Patient's mother is at bedside HEENT: Head is atraumatic, normocephalic. Pupils equal, round. Sclerae is anicteric. NECK: Supple. No JVD. No lymphadenopathy. No thyromegaly. LUNGS: Clear to auscultation. No wheezes or rhonchi. No intercostal retractions. HEART: Regular rate and rhythm. No murmur. ABDOMEN: Soft. Bowel sounds are present. No masses. No tenderness. EXTREMITIES: No pedal edema. No calf tenderness. NEUROLOGICAL: Patient is awake, alert and oriented x3. Cranial nerves 2 through 12 are grossly intact. Strength 5 out of 5 on the bilateral upper extremity. Bilateral lower extremity strength 5 out of 5. - Labs CBC & Chem 7: 08/26/18 17:50 08/26/18 17:50 Assessment and Plan Plan: 1. Dizziness with left arm heaviness and reported facial droop, rule out CVA possible small lacunar infarct, possible vestibular neuronitis. Consult with Dr. Kyle weeks. Repeat CAT scan of the brain and echocardiogram are normal. Patient will be started on IV Solu-Medrol 40 mg every 8 hours 3 doses. Aspirin 325 mg discontinued and patient started on aspirin 81 mg and Plavix 75 mg and Lipitor 40 mg at bedtime. 2. Migraine headaches under the care of Dr. Lyons's office. Patient on Imitrex as needed, Flexeril 10 mg 3 times daily as needed, ibuprofen as needed. 3. History of left breast cancer status post lumpectomy and radiation therapy, stable. 4. Fibromyalgia, stable. 5. Tobacco use and dependence. Nicotine patch. 6. Sick sinus syndrome status post pacemaker placement, stable. 7. Hypothyroidism. Check TSH, free T4. 8. Tobacco use and dependence. Nicotine patch. 9. GI prophylaxis. Pepcid. 10. DVT prophylaxis. SCDs and CADENCE magallanes. Discharge plan: To be determined Impression and plan of care have been directed as dictated by the signing physician. Helene Villa nurse practitioner acting as scribe for signing physician.
[2018-08-30] MEDS: SODIUM CHLORIDE 0.9% 1,000 ML IV SCH (10:00)
[2018-08-30] MEDS ORDERED: CALCIUM CARBONATE 500 MG CHEWABLE PO PRN (11:49)
--- NOTE | 2018-08-30 12:07 | P.PN ---
Subjective Progress Note Date: 08/30/18 This is a 52-year-old female patient of Dr. Vera with past medical history significant for ductal carcinoma left breast status post lumpectomy and radiation, 6 sinus syndrome requiring pacemaker in February 2015, thyroiditis, chronic headaches under the care of Dr. Lyons. Patient gives history that she occasionally has dizzy spells when she got up in the morning she was having another dizzy spell and she thought this was related to not eating breakfast. She went to yoga class yesterday and the dizziness became worse. She felt like she was falling even when she was sitting on the floor. She denies any visual changes. She states that the cyber security instructor noticed a facial droop on the left side and her left arm felt heavy. She is thinks the symptoms happen in the past and thought were anxiety related. She complains of a little bit of headache across her forehead which she gets frequently and follows with Dr. Lyons's office. She does have Imitrex available and has sta rted injections in the past that did not help. Patient came into the [facility] emergency center for evaluation. CTA of the head showed no significant abnormality. CT of the brain was negative. Chest x-ray negative. Hemoglobin was 10.9, electrolytes, renal function and liver function tests all within normal limits. Triglycerides 206, cholesterol 155, LDL 80, HDL 34. Initial blood pressure 99/62, heart rate in the 70s, pulse ox 98% on room air. Patient has been afebrile. Patient has been admitted to the cardiac stepdown unit and neurology consult obtained with Dr. Wright. Echocardiogram is pending. The patient did receive 1 dose of meclizine 50 mg and she states the dizziness improved somewhat from this medication. We will add an meclizine. 08/28: Patient continues to have same symptoms without any significant improvement despite meclizine. We have ordered a repeat CAT scan of the brain which came back negative with no acute findings. Echocardiogram revealed EF of 55-60%. We will start the patient on IV steroids. Neurology has not ruled out small lacuna r stroke not visible on CT. We will plan to monitor patient overnight and possible discharge for tomorrow. Due to patient's gait dysfunction, Walker has been ordered. 08/29: Patient continues to have dizziness and gait dysfunction. She is very concerned and does not understand why she is not improving. She did receive 3 doses of IV steroids without any improvement and meclizine is not making any improvement as well. Currently checking into whether patient can have MRI at [facility] with pacemaker. If so, patient will be transferred to [facility] for this testing. We have made medication changes to include adding and Lipitor, discontinued. Aspirin 325 mg was discontinued and started Plavix and baby aspirin. Anticipate patient will be transferred to [facility] later today. 08/30: Patient states the dizziness is better today from yesterday. We are PT OT and speech therapy in place. We will add in a consult for Dr. Meyers. The patient will plan for outpatient MRI at a later date. IV fluids will be discontinued as well as telemetry. Anticipate possible discharge tomorrow. She has been afebrile, heart rate in the 60s to 80s, blood pressure 89/51 and pulse ox 97% on room air. Review of Systems Constitutional: Denies anorexia, Denies chills, Denies fatigue, Denies fever, Denies lethargy, Denies malaise, Denies poor appetite, Denies weakness, Denies weight loss, reports dizziness Eyes: denies blurred vision, denies pain Ears, nose, mouth and throat: Reports vertigo, Denies dysphagia, Denies hoarseness, Denies mouth pain, Denies nasal congestion, Denies nasal discharge, Denies sore throat Cardiovascular: Denies chest pain, Denies decreased exercise tolerance, Denies dyspnea on exertion, Denies edema, Denies lightheadedness, Denies syncope Respiratory: Denies congestion, Denies cough, Denies cough with sputum, Denies dyspnea, Denies excessive sputum, Denies hemoptysis, Denies home oxygen, Denies wheezing Gastrointestinal: Denies diarrhea, Denies loss of appetite, Denies nausea, Denies vomiting Genitourinary: Denies dysuria, Denies hematuria Musculoskeletal: Denies myalgias Integumentary: Denies pruritus, Denies rash, Denies wounds Neurological: Reports headaches, Reports migraines, Reports vertigo, Denies aphasia, Denies change in mentation, Denies change in speech, Denies confusion, Denies double vision, reports gait dysfunction, Denies head injury, Denies loss of vision, Denies seizures, Denies syncope Psychiatric: Denies anxiety, Denies depression Endocrine: Denies fatigue, Denies weight change Objective - Vital Signs Vital signs: Vital Signs Temp 97.8 F 08/30/18 04:56 Pulse 63 08/30/18 04:56 Resp 16 08/30/18 04:56 BP 90/54 08/30/18 05:44 Pulse Ox 97 08/30/18 04:56 Intake & Output 08/29/18 08/30/18 08/30/18 18:59 06:59 18:59 Intake Total 400 1180 Balance 400 1180 Intake: Oral 400 1180 Other: Voiding Method Toilet # Voids 2 2 - Exam Gen: This is a thin 52-year-old female. Patient is resting in bed appears to be comfortable and in no acute distress. HEENT: Head is atraumatic, normocephalic. Pupils equal, round. Sclerae is anicteric. NECK: Supple. No JVD. No lymphadenopathy. No thyromegaly. LUNGS: Clear to auscultation. No wheezes or rhonchi. No intercostal retractions. HEART: Regular rate and rhythm. No murmur. ABDOMEN: Soft. Bowel sounds are present. No masses. No tenderness. EXTREMITIES: No pedal edema. No calf tenderness. NEUROLOGICAL: Patient is awake, alert and oriented x3. Cranial nerves 2 through 12 are grossly intact. Strength 5 out of 5 on the bilateral upper extremity. Bilateral lower extremity strength 5 out of 5. - Labs CBC & Chem 7: 08/26/18 17:50 08/26/18 17:50 Assessment and Plan Plan: 1. Dizziness with left arm heaviness and reported facial droop, rule out CVA possible small lacunar infarct, possible vestibular neuronitis. Consult with Dr. Wright appreciated. Repeat CAT scan of the brain and echocardiogram are normal. Patient completed IV Solu-Medrol 40 mg every 8 hours 3 doses without i mprovement. Aspirin 325 mg discontinued and patient started on aspirin 81 mg and Plavix 75 mg and Lipitor 40 mg at bedtime. 2. Migraine headaches under the care of Dr. Lyons's office. Patient on Imitrex as needed, Flexeril 10 mg 3 times daily as needed, ibuprofen as needed. 3. History of left breast cancer status post lumpectomy and radiation therapy, stable. 4. Fibromyalgia, stable. 5. Tobacco use and dependence. Nicotine patch. 6. Sick sinus syndrome status post pacemaker placement, stable. 7. Hypothyroidism. Check TSH, free T4. 8. Tobacco use and dependence. Nicotine patch. 9. GI prophylaxis. Pepcid. 10. DVT prophylaxis. SCDs and CADENCE maryame. Discharge plan: [facility] for inpatient rehab tomorrow. Consult with Dr. Meyers. Impression and plan of care have been directed as dictated by the signing physician. Helene Villa nurse practitioner acting as scribe for signing physician.
--- NOTE | 2018-08-30 15:11 | P.PN ---
Subjective Progress Note Date: 08/30/18 Patient states that she is feeling better. She was able to walk to the bathroom much better, less dizzy. She was hanging onto the pole. No new neurological symptoms. Her left-sided weakness has also improved. Patient had a carotid Doppler, which is normal. 2-D echo also normal. Ejection fraction 55-60%. Left atrial size is normal. Patient had a repeat computed tomography scan of head, which is also normal. Objective - Vital Signs Vital signs: Vital Signs Temp 97.7 F 08/30/18 12:42 Pulse 71 08/30/18 12:42 Resp 16 08/30/18 12:42 BP 106/70 08/30/18 12:42 Pulse Ox 100 08/30/18 12:42 Intake & Output 08/29/18 08/30/18 08/30/18 18:59 06:59 18:59 Intake Total 400 1180 Balance 400 1180 Intake: Oral 400 1180 Other: Voiding Method Toilet # Voids 2 2 4 - Exam On examination patient's mental status, speech and language functions are n ormal. Cranial nerves are significant for left ptosis, possible left mild Crista's. Left facial droop, almost resolved. Tongue protrudes to the midline. Visual rojas are full and extraocular muscles are intact. On muscle strength testing, there is no pronator drift. On muscle strength testing, patient has normal strength on the right side. On the left side, has mild weakness, slightly better than yesterday. The left-sided ataxia has improved, almost resolved. Gait deferred. - Labs CBC & Chem 7: 08/26/18 17:50 08/26/18 17:50 Assessment and Plan Assessment: * Possible CVA. * Tobacco users * Dyslipidemia * History of sick sinus syndrome, status post pacemaker placement. * Previous history of breast cancer, in remission Plan: Patient cannot have MRI due to placement of pacemaker. Her CTA of head and neck is normal. 2-D echo is normal. Repeat computed tomography scan of the head also showed no acute process. Patient possibly had a small lacunar stroke, not visible on the computed tomography scan of head. Patient's hemoglobin A1c is normal. Because of persistent symptoms, will switch to dual antiplatelet medication, with aspirin 81 mg and Plavix 75 mg. patient clinically much improved. Meclizine for dizziness. PT OT evaluate gait. Possible transfer to inpatient rehab in the morning. Tobacco cessation. Patient to have MRI of the brain perhaps as an outpatient.
[2018-08-30] MEDS: ALPRAZolam 1 MG TAB PO PRN (17:07)
[2018-08-30] MEDS: SUMAtriptan SUCCINATE 50 MG TAB PO PRN (17:37)
[2018-08-30] MEDS: ATORVASTATIN 40 MG TAB PO SCH (20:10)
[2018-08-31] MEDS: CYCLOBENZAPRINE 10 MG TAB PO PRN (00:58)
[2018-08-31 06:05] VITALS: PULSE 72
--- NOTE | 2018-08-31 06:37 | P.CONS ---
History of Present Illness - Chief Complaint Gait disturbance - History of Present Illness I had the opportunity to see patient for inpatient rehab consultation with regard to gait disturbance. Admitted to [facility] August 26 with left upper extremity heaviness and left facial weakness. Seen in consultation by 's son. Note angiogram CT and head CT negative. PT reports modified independent with bed mobility, transfers, gait 150 feet with roller walker. OT reports minimal assistance for upper dressing, moderate to maximal assistance for lower dressing, minimal to moderate assistance for bathing and supervision to minimal assistance for toileting and transfers. Speech therapy reports swallow within functional limits. Patient reports that she is ambulatory in room at roller walker level including bathroom. Previous functional history as elicited from patient: 52-year-old left-handed white female who is lives in one floor home with and 2 grandkids. Works part-time. Describes independent with cooking, laundry, driving, standing shower and gait without device. Smokes a half a pack per day and very rare drink. Dr. Vera is regular doctor. Review of Systems Review of systems: ENT: Denies sneezes or discharge. Eyes: Denies discharge or photophobia. Cardiac: Denies chest pain or palpitation. Pulmonary: Denies cough or shortness of breath. Breast: Denies discharge or lumps. Gastrointestinal: Denies nausea, emesis, constipation, diarrhea. Genitourinary: Denies discharge or frequency. Musculoskeletal: Denies muscle or bone aches. Neurologic: Mild left-sided weakness and heaviness face and arm. Endocrine: Denies shakes or sweats. Oncology: Denies cancers. Dermatologic: Denies rash, itching, pruritus. ALLERGY/immunology: Denies sneezes, rashes. Past Medical History Past Medical History: Cancer, Fibromyalgia, Thyroid Disorder Additional Past Medical History / Comment(s): HYPOTHYROID, LT Breast CA. HX radiation, osteopenia, sick sinus syndrome History of Any Multi-Drug Resistant Organisms: None Reported Past Surgical History: Breast Surgery, Cholecystectomy, Hysterectomy, Pacemaker, Tubal Ligation Additional Past Surgical History / Comment(s): PARTIAL LT MASTECTOMY, Past Anesthesia/Blood Transfusion Reactions: No Reported Reaction Type of Cardiac Device: Permanent Pacemaker Device Placement Date:: 03/09/15 Past Psychological History: Anxiety Additional Psychological History / Comment(s): clausterphobia Smoking Status: Current every day smoker Past Alcohol Use History: Occasional Additional Past Alcohol Use History / Comment(s): started smoking 14- smokes 1/2 ppd Past Drug Use History: Marijuana Additional Drug Use History / Comment(s): medical marijuana, - Past Family History Father Family Medical History: No Reported History Additional Family Medical History / Comment(s): Father is alive but she does not know his medical history. Mother Family Medical History: No Reported History Additional Family Medical History / Comment(s): Mother is alive at age 74 with no major medical problems. Brother(s) Family Medical History: No Reported History Additional Family Medical History / Comment(s): The patient has 1 brother with no major medical problems. Sister(s) Family Medical History: No Reported History Additional Family Medical History / Comment(s): Patient has one sister and she has irritable bowel syndrome. Daughter(s) Family Medical History: No Reported History Additional Family Medical History / Comment(s): Patient has one daughter with no major medical problems. Medications and Allergies Home Medications Medication Instructions Recorded Confirmed Type ALPRAZolam [Xanax] 1 mg PO HS PRN 02/10/17 08/26/18 History Cyclobenzaprine [Flexeril] 10 mg PO TID PRN 08/26/18 08/26/18 History HYDROcodone/APAP 7.5-325MG [Topaz 1 tab PO BID PRN 08/26/18 08/26/18 History 7.5-325] Ibuprofen [Motrin] 800 mg PO TID PRN 08/26/18 08/26/18 History SUMAtriptan SUCCINATE [Imitrex] 50 mg PO BID PRN 08/26/18 08/26/18 History Allergies Allergy/AdvReac Type Severity Reaction Status Date / Time No Known Allergies Allergy Verified 08/26/18 18:03 Physical Exam Vitals: Vital Signs Temp Pulse Resp BP BP BP BP 08/31/18 06:08 08/31/18 06:07 97/59 08/31/18 06:04 72 14 08/31/18 05:00 97.8 F 58 L 16 91/54 08/30/18 21:00 98.0 F 70 16 122/82 08/30/18 12:42 97.7 F 71 16 106/70 112/73 103/66 BP BP Pulse Ox 08/31/18 06:08 113/61 08/31/18 06:07 08/31/18 06:04 92/55 98 08/31/18 05:00 91 L 08/30/18 21:00 95 08/30/18 12:42 100 Intake and Output 08/30/18 08/30/18 08/31/18 14:59 22:59 06:59 Intake Total 590 1080 Balance 590 1080 Intake: Oral 590 1080 Other: Voiding Method Toilet # Voids 4 2 2 Skin: Good color, texture, turgor. General: Medium build and comfortable appearance. Head: Normocephalic, atraumatic. Eyes: Symmetric. Pupils equal round. Ears: Symmetric. Hearing within normal limits. Mouth: Clear. Neck: Supple. Carotid without bruit. Cardiac: Regular rate and rhythm. Lungs: Clear anteriorly and posteriorly. Abdomen: Soft active nontender. Extremities: Normal tone. Neurological: Mental status: Alert, cooperative, pleasant. Cranial nerves: Symmetric facial tone and trapezius. Motor: Normal strength and isolation all 4 limbs but 4/5 left hand. Left leg mildly apraxic and ankle and foot. Sensation: Intact throughout. DTRs: Symmetric and equal throughout. Mobility: Sits and stands without assistance or verbal cueing or loss of balance. Results CBC & Chem 7: 08/26/18 17:50 08/26/18 17:50 Assessment and Plan (1) CVA (cerebral vascular accident) Current Visit: Yes Status: Acute Code(s): I63.9 - CEREBRAL INFARCTION, UNSPECIFIED SNOMED Code(s): 254796574 Plan: Impression: 1. Gait disturbance. 2. Right side stroke result in left hemiparesthesias. 3. Sick sinus syndrome. 4. Fibromyalgia. 5. Cancer. 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 PT notes patient modified independent OT note safety concerns. We'll await therapy notes today and recommend PT evaluate stairs.
[2018-08-31] MEDS: NICOTINE 14MG/24HR PATCH TRANSDERM SCH (08:24)
[2018-08-31] MEDS: CLOPIDOGREL 75 MG TAB PO SCH (08:25)
[2018-08-31] MEDS: FAMOTIDINE 20 MG TAB PO SCH (08:25)
[2018-08-31] MEDS: ASPIRIN 81 MG PO SCH (08:25)
[2018-08-31] MEDS: HYDROcodone/APAP 7.5-325MG 1 EACH TAB PO PRN (08:28)
[2018-08-31 12:10] VITALS: BP 92/57; RESP 17; TEMP 98.9
--- NOTE | 2018-08-31 12:30 | P.PN ---
Subjective Progress Note Date: 08/31/18 Patient states that she is feeling better. The nurse also has reported improvement in her mobility, and overall neurological status. No new neurological symptoms. Her left-sided weakness has also improved. Patient had a carotid Doppler, which is normal. 2-D echo also normal. Ejection fraction 55-60%. Left atrial size is normal. Patient had a repeat computed tomography scan of head, which is also normal. Objective - Vital Signs Vital signs: Vital Signs Temp 98.9 F 08/31/18 12:09 Pulse 72 08/31/18 12:09 Resp 17 08/31/18 12:09 BP 92/57 08/31/18 12:09 Pulse Ox 100 08/31/18 12:09 Intake & Output 08/30/18 08/31/18 08/31/18 18:59 06:59 18:59 Intake Total 1670 Balance 1670 Intake: Oral 1670 Other: Voiding Method Toilet # Voids 4 2 - Exam On examination patient's mental status, speech and language functions are normal. Cranial nerves shows that left ptosis and Crista's have almost resolved. Left facial droop, almost resolved. Tongue protrudes to the midline. Visual rojas are full and extraocular muscles are intact. On muscle strength testing, there is no pronator drift. On muscle strength testing, patient has normal strength on the right side. On the left side, the strength is also normal. No ataxia noted for [id number] testing. - Labs CBC & Chem 7: 08/26/18 17:50 08/26/18 17:50 Assessment and Plan Assessment: * Possible CVA. * Tobacco users * Dyslipidemia * History of sick sinus syndrome, status post pacemaker placement. * Previous history of breast cancer, in remission Plan: Patient cannot have MRI due to placement of pacemaker. Her CTA of head and neck is normal. 2-D echo is normal. Repeat computed tomography scan of the head also showed no acute process. Patient possibly had a small lacunar stroke, not visible on the computed tomography scan of head. Patient's hemoglobin A1c is normal. Continue dual antiplatelet medication, with aspirin 81 mg and Plavix 75 mg. Patient clinically much improved. PT OT evaluate gait. Discussed with Dr. Meyers, physical medicine and monique abilitation. Patient probably will be discharged home with home care. No indication for inpatient rehab. Tobacco cessation. Patient to have MRI of the brain perhaps as an outpatient.
== END 2018-08-31 14:05 | disposition home health service (06) | DRG 65 ==
LOC: EC 16:32 → 3SCARD 19:58 → 3NMEDONC 08-28 00:14
PROVIDERS: ADMIT Internal Medicine; ATTEND Internal Medicine
DX: I63.81 Other cerebral infarction due to occlusion or stenosis of small artery (principal); G81.94 Hemiplegia, unspecified affecting left nondominant side; E03.9 Hypothyroidism, unspecified; E78.5 Hyperlipidemia, unspecified; F41.9 Anxiety disorder, unspecified; R40.2363 Coma scale, best motor response, obeys commands, at hospital admission; R40.2143 Coma scale, eyes open, spontaneous, at hospital admission; R40.2253 Coma scale, best verbal response, oriented, at hospital admission; R29.702 NIHSS score 2; M79.7 Fibromyalgia; G43.909 Migraine, unspecified, not intractable, without status migrainosus; F17.200 Nicotine dependence, unspecified, uncomplicated; R26.9 Unspecified abnormalities of gait and mobility; R29.810 Facial weakness; M85.80 Other specified disorders of bone density and structure, unspecified site; Z85.3 Personal history of malignant neoplasm of breast; Z98.51 Tubal ligation status; Z92.3 Personal history of irradiation; Z90.49 Acquired absence of other specified parts of digestive tract; Z98.890 Other specified postprocedural states; Z90.710 Acquired absence of both cervix and uterus; Z95.0 Presence of cardiac pacemaker
CPT/HCPCS: 36415; 70450; 70496; 70498; 71046; 80053; 80061; 82550; 82553; 84443; 84484; 85025; 85610; 85730; 93005; 93306; 94760; 96361; 96374; 99291

== ENCOUNTER → 2019-01-06 | Outpatient (CLI) | payer OTHER ==
--- NOTE | 2019-01-06 12:53 | CT ---
EXAMINATION TYPE: CT abdomen pelvis w con DATE OF EXAM: 01/06/2019 COMPARISON: 02/05/2017 HISTORY: 53-year-old female with Low abdominal pain TECHNIQUE: Contiguous axial scanning of the abdomen and pelvis following administration of 100 ml Iso nazia 300 IV contrast. Delayed images through the kidneys and coronal/sagittal reconstructions perform ed. CT DLP: 389.3 mGycm Automated exposure control for dose reduction was used. FINDINGS: Right ventricular pacer lead. Heart normal size without pericardial effusion. Lung bases clear withou t pleural effusion. Tiny hiatal hernia redemonstrated. No focal liver lesion or biliary duct dilatation. Portal venous system is patent. Gallbladder not seen, probably surgically absent. Adrenal glands, kidneys, spleen, and pancreas appear within normal limits. No dilated small bowel, free fluid, or free air. No mesenteric or retroperitoneal lymphadenopathy. Normal appendix. Scattered mild stool. Loss of vertebral wall thickening of the mid to distal sigmoid may relate to nondistention. No pericolonic inflammatory changes. Mild circumferential bladder wall thickening. Pelvic phlebolith. Uterus surgically absent. Neither ov gabbi is clearly identified. No abnormal fluid collection in the pelvis or pelvic lymphadenopathy. Bones: No osseous destructive process. IMPRESSION: 1. MILD CIRCUMFERENTIAL BLADDER WALL THICKENING. CORRELATE TO EXCLUDE CYSTITIS. 2. MILD CIRCUMFERENTIAL WALL THICKENING OF THE MID TO DISTAL SIGMOID COLON COULD BE SECONDARY TO NOND ISTENTION OR NONSPECIFIC MILD COLITIS.
== END | disposition home or self-care (01) ==
LOC: RADCTMAIN 10:05
PROVIDERS: ATTEND Family Medicine
DX: N32.89 Other specified disorders of bladder (principal); R10.9 Unspecified abdominal pain
CPT/HCPCS: 74177; Q9967

== ENCOUNTER → 2019-03-12 | Day surgery (SDC) | payer OTHER ==
[2019-03-10 08:40] VITALS: BMI 20.5
[~2019-03-12] MED LIST: BENZOCAINE SPRAY 1 CAN TOPICAL PRN; MIDAZOLAM 2 MG/2 ML VIAL IV ONE; SODIUM CHLORIDE 0.9% 1,000 ML IV SCH; SODIUM CHLORIDE 0.9% 500 ML 500 ML IV ONE; fentaNYL (PF) 50 MCG/ML 5 ML AMP IVP ONE
[2019-03-12 07:51] VITALS: TEMP 97.6
[2019-03-12] MEDS: BENZOCAINE SPRAY 1 CAN MUCOUS MEM ONE ×2 (08:22→08:25)
[2019-03-12] MEDS: fentaNYL (PF) 50 MCG/ML 2 ML AMP IV ONE ×2 (08:24→08:32)
[2019-03-12 08:25] VITALS: RESP 16
--- NOTE | 2019-03-12 08:50 | P.TEE ---
Indications for Procedure(s): PFO Date of Procedure: 03/12/19 Preoperative Diagnosis: PFO with history of TIA Postoperative Diagnosis: PFO Procedure(s) Performed: GEORGINA Description of Procedure(s): INDICATION: This 53-year-old female with history of TIA was noted to have possibility for PFO. A GEORGINA examination is requested for further evaluation and confirmation CONSENT: Informed verbal consent was obtained from the patient PROCEDURE: Patient was brought to the lab in a fasting state. See was prepped and draped in the usual fashion. The throat was sprayed with Cetacaine. Patient was given IV Versed 2.5 mg and fentanyl 100 g in small boluses. A lubricated Omni probe was introduced into the oropharynx and was advanced into the esophagus. Multiple views were obtained. Color, pulsed and continuous flow Doppler studies were performed. Saline contrast bubble injection was also performed. Patient tolerated the procedure well FINDINGS:. The aortic valve appears to be tricuspid and function normally. The aortic root measures 3.1. The mitral valve appeared to be normal with mild central regurgitation. The tricuspid valve appeared to be normal. The pulmonic valve appeared to be normal. There are pacemaker wires noted in the right atrium and also across the tricuspid valve. The interatrial septum showed evidence of spontaneous shunt from the left to the right which appears to be small. Injection of the saline contrast bubble injection showed crossing of multiple problems immediately into the left atrium. The left ankle function is normal. The left atrial appendage is free of any clot. The atrial sizes appear to be normal. Aorta is free of any plaque IMPRESSION: #1. PFO with spontaneous [id number] shunt #2. Mild mitral regurgitation #3. No clot in left atrial appendage. #4. Resolved LV function. #5. No plaque in the aorta PLAN: Continue current medical therapy. Consideration for PFO closure
[2019-03-12 09:44] VITALS: PULSE 54
[2019-03-12 09:53] VITALS: BP 92/55
== END | disposition home or self-care (01) ==
LOC: CATHCVL 07:24
PROVIDERS: ATTEND Internal Medicine Cardiovascular Disease
DX: Q21.1 Atrial septal defect (principal); I34.0 Nonrheumatic mitral (valve) insufficiency; I49.5 Sick sinus syndrome; I47.1 Supraventricular tachycardia; Z95.0 Presence of cardiac pacemaker; Z86.73 Personal history of transient ischemic attack (TIA), and cerebral infarction without residual deficits; F17.210 Nicotine dependence, cigarettes, uncomplicated; Z79.82 Long term (current) use of aspirin; Z79.02 Long term (current) use of antithrombotics/antiplatelets; Z79.899 Other long term (current) drug therapy
CPT/HCPCS: 93312; 93320; 93325; J2250; J3010 ×2

== ENCOUNTER → 2019-06-15 | Outpatient (CLI) | payer OTHER ==
[2019-06-15 10:47] LABS: HCT 42.2 % (34.0-46.0); HGB 13.7 gm/dL (11.4-16.0); MCH 30.6 pg (25.0-35.0); MCHC 32.5 g/dL (31.0-37.0); MCV 94.4 fL (80.0-100.0); Mean Platelet Volume 7.5; Platelet Count 298 k/uL (150-450); RBC 4.47 m/uL (3.80-5.40); RDW 12.5 % (11.5-15.5); WBC 7.7 k/uL (3.8-10.6)
[2019-06-15 16:28] LABS: African American GFR (CKD) 96.9 (60.0-200.0); Anion Gap 6.5 mmol/L (4.00-12.00); Carbon Dioxide 28.5 mmol/L (21.6-31.8); Non-African American GFR(CKD) 83.6 (60.0-200.0)
== END | disposition home or self-care (01) ==
LOC: LABWHC1 09:56
PROVIDERS: ATTEND Internal Medicine Interventional Cardiology
DX: Z01.812 Encounter for preprocedural laboratory examination (principal); Q21.1 Atrial septal defect
CPT/HCPCS: 36415; 80051; 82565; 84520; 85027

== ENCOUNTER 2019-06-16 08:17 | Day surgery (SDC) | payer OTHER ==
[2019-06-11 11:54] VITALS: BMI 20.7
[~2019-06-16 08:17] MED LIST changes: -BENZOCAINE SPRAY 1 CAN TOPICAL PRN; +LACTATED RINGERS 1,000 ML IV SCH; +LIDOCAINE 1% (10MG/ML) FOR IV START INTRADERMA PRN; -MIDAZOLAM 2 MG/2 ML VIAL IV ONE; -SODIUM CHLORIDE 0.9% 1,000 ML IV SCH; -SODIUM CHLORIDE 0.9% 500 ML 500 ML IV ONE; -fentaNYL (PF) 50 MCG/ML 5 ML AMP IVP ONE
[2019-06-16 08:59] VITALS: TEMP 98.4
[2019-06-16] MEDS ORDERED: PROPOFOL 10 MG/ML 20 ML VIAL IV ONE (09:45)
[2019-06-16] MEDS ORDERED: LIDOCAINE 1% INJ 10MG/ML (20 ML MDV) ONE (09:45)
--- NOTE | 2019-06-16 10:03 | P.PCN ---
Date of Procedure: 06/16/19 Procedure(s) Performed: BRIEF HISTORY: Patient is a 53-year-old pleasant white female scheduled for an elective colonoscopy as a part of change in bowel habits. PROCEDURE PERFORMED: Colonoscopy with snare polypectomy. PREOPERATIVE DIAGNOSIS: Change in bowel habits. IV sedation per Anesthesia. PROCEDURE: After informed consent was obtained, the patient, was brought into the endoscopy unit. IV sedation was administered by Anesthesia under continuous monitoring. Digital rectal examination was normal. Initially the Olympus CF-160 flexible video colonoscope was then inserted in the rectum, gradually advanced into the cecum without any difficulty. Careful examination was performed as the scope was gradually being withdrawn. Ileocecal valve and the appendiceal orifice were visualized and appeared normal. Prep was excellent. Mucosa of the cecum, ascending colon, transverse colon, appeared normal. In the descending colon there was a 5 mm sessile polyp that was removed by snare polypectomy. Rest of the descending colon, sigmoid colon, and rectum appeared normal. Retroflexion was performed in the rectum and no lesions were seen. The patient tolerated the procedure well. IMPRESSION: 5 mm sessile descending colon polyp status post polypectomy Rest of the colon appeared normal RECOMMENDATIONS: Findings of this examination were discussed with the patient as well as a family. She was advised to follow with the biopsy results. If the biopsy shows an adenoma she can have a repeat colonoscopy in 5 years.
[2019-06-16 10:30] VITALS: BP 106/63; PULSE 57; RESP 18
== END 2019-06-16 10:45 | disposition home or self-care (01) ==
LOC: ORWHC2ENDO 08:17
PROVIDERS: ATTEND Internal Medicine Gastroenterology
DX: K63.5 Polyp of colon (principal); I49.5 Sick sinus syndrome; Q21.1 Atrial septal defect; F41.9 Anxiety disorder, unspecified; F17.210 Nicotine dependence, cigarettes, uncomplicated; G43.909 Migraine, unspecified, not intractable, without status migrainosus; K21.9 Gastro-esophageal reflux disease without esophagitis; Z95.0 Presence of cardiac pacemaker; Z86.73 Personal history of transient ischemic attack (TIA), and cerebral infarction without residual deficits; Z79.02 Long term (current) use of antithrombotics/antiplatelets; Z79.82 Long term (current) use of aspirin; Z79.899 Other long term (current) drug therapy; Z90.710 Acquired absence of both cervix and uterus; Z98.51 Tubal ligation status; Z90.49 Acquired absence of other specified parts of digestive tract; Z90.10 Acquired absence of unspecified breast and nipple
CPT/HCPCS: 45385; J2001; J2704; 88305

== ENCOUNTER 2019-07-02 06:57 | Day surgery (SDC) | payer OTHER ==
[2019-07-01 08:45] VITALS: BMI 19.5
[~2019-07-02 06:57] MED LIST changes: +ALPRAZolam 0.25 MG TAB PO PRN; +ALPRAZolam 0.5 MG TAB PO PRN; +ASPIRIN 325 MG TAB PO STA; -LACTATED RINGERS 1,000 ML IV SCH; -LIDOCAINE 1% (10MG/ML) FOR IV START INTRADERMA PRN
[2019-07-02] MEDS ORDERED: ASPIRIN 81 MG ONE (07:18)
[2019-07-02] MEDS ORDERED: SODIUM CHLORIDE 0.9% 1,000 ML IV ONE (07:35)
[2019-07-02] MEDS ORDERED: LIDOCAINE 1% INJ 10MG/ML (20 ML MDV) SQ ONE (09:13)
[2019-07-02] MEDS ORDERED: MIDAZOLAM 2 MG/2 ML VIAL IVP ONE ×2 (09:13→09:34)
[2019-07-02] MEDS ORDERED: HYDROmorphone 1 MG/ML 1 ML SYRINGE IVP ONE (09:20)
[2019-07-02] MEDS ORDERED: HEPARIN SODIUM 1,000 UN/ML (10ML VL) IV ONE (09:25)
[2019-07-02] MEDS ORDERED: fentaNYL (PF) 50 MCG/ML 2 ML AMP IVP ONE (09:25)
[2019-07-02] MEDS ORDERED: ALPRAZolam 1 MG TAB PO PRN (09:50)
[2019-07-02] MEDS ORDERED: CYCLOBENZAPRINE 10 MG TAB PO PRN (09:50)
[2019-07-02] MEDS ORDERED: SUMAtriptan SUCCINATE 50 MG TAB PO PRN (09:50)
[2019-07-02] MEDS ORDERED: CLOPIDOGREL 75 MG TAB PO ONE (09:54)
[2019-07-02] MEDS ORDERED: IOPAMIDOL-250 100ML BTL IV ONE (09:54)
[2019-07-02] MEDS ORDERED: SODIUM CHLORIDE 0.9% 500 ML 500 ML IV ONE (09:55)
[2019-07-02] MEDS ORDERED: SODIUM CHLORIDE 0.9% 1,000 ML IV SCH (10:00)
--- NOTE | 2019-07-02 10:15 | LTR ---
July 02, 2019 Re: Kathleen Hawkinsl Dear Dr. Vera: Ms. Kathleen Trevino underwent today successful percutaneous closure of patent foramen ovale using an Amplatzer PFO occluder with an excellent angiographic result. Thank you for allowing us to participate in her care and please do not hesitate to call if you have any question or concern. Sincerely, Raudel Chauhan MD MMEMILE / FRANCISCON: [id number] /
--- NOTE | 2019-07-02 10:30 | AN ---
ANGIOGRAPHY REPORT DATE OF SERVICE: 07/02/2019 PERFORMING PHYSICIAN: Raudel Chauhan MD. PROCEDURE PERFORMED: 1. Intracardiac echocardiogram imaging. 2. Successful percutaneous closure of patent foramen ovale using 25 mm Amplatzer PFO occluder with an excellent results and without any residual shunt. 3. Right atrial angiogram. INDICATION: This is a 53-year-old female patient who sees Dr. Basurto as well as Dr. Vera as an outpatient who was diagnosed recently with TIA and underwent a GEORGINA which revealed patent foramen ovale with evidence of [id number] shunt. Also the patient is known to have permanent pacemaker. Because of that, she was scheduled to undergo a HOURLY SHIFT MANAGER. PFO, occluded PFO closure. APPROACH: Right common femoral vein. COMPLICATION: None. LEVEL OF SEDATION: Moderate with sedation length of 31 minutes. PROCEDURE DESCRIPTION: After obtaining informed consent, the patient was brought to the cardiac label printer. The right common femoral vein was cannulated x2 using micropuncture technique under ultrasound guidance, the micropuncture wire passed easily, then I placed two 8-Ukrainian sheath in the right groin. At that point, anticoagulation was initiated using heparin and the patient was given a bolus of 6000 units of heparin IV with continuous ECT monitoring throughout the procedure. After that, the intracardiac echocardiogram probe was advanced through one of the venous sheath all the way to the right atrium where we did interrogate the interatrial septum and identified the patent foramen ovale which was measured about 25 mm. Subsequently, I did cross the patent foramen ovale using 0.035 J-wire with the backup support of multipurpose catheter. The wire was advanced all the way to the left upper pulmonary vein and subsequently the catheter was advanced over the wire to the left upper pulmonary vein. The 0.035 J-wire was pulled out and then I advanced a jason wire. Subsequently, the multipurpose catheter was withdrawn out and the wire was left in the left upper pulmonary vein. After that, I did prep the Amplatzer PFO occluder under saline. The device was loaded into the perforator loader, which was attached to the sheath. Subsequently, I did exchange my 8-Ukrainian sheath into the Shuttle sheath over a 0.035 jason wire. The sheath was advanced all the way under fluoroscopy guidance to the left atrium. Subsequently, the dilator of the sheath was withdrawn out along with the wire. After that, I did load the Amplatzer PFO occluder under continuous saline flush to the sheath. The device was advanced all the way through the sheath were I did where I did deploy initially the left atrial occluder and then I pulled back the sheath and the left atrial occluder all the way to the interatrial septum and then I deployed the right atrial occluder after that. Before I released the device, I did interrogate the septum using ice images on multiple views. After I realized that the device was stable enough and in good position the device was released. Interrogation using ice was also performed after the device was released. By the end I did right atrial angiogram. The procedure was completed without any complication. POSTPROCEDURE MANAGEMENT: 1. Dual anti-platelet therapy for 1 month. 2. Aspirin for 6 months. 3. The patient might stay on dual anti-platelet therapy if she did have a TIA or stroke up to the .. 4. An echo in 24 hours, in 1 week, in 4 weeks, as well as in 6 months. 5. Follow up with Dr. Basurto. MMKEVONL / FRANCISCON: [id number] /
[2019-07-02] MEDS: HYDROcodone/APAP 7.5-325MG 1 EACH TAB PO PRN ×2 (13:04→20:53)
[2019-07-02 15:28] VITALS: TEMP 97.8
[2019-07-02] MEDS: PANTOPRAZOLE 40 MG TABLET PO SCH (20:52)
[2019-07-02] MEDS ORDERED: ATORVASTATIN 40 MG TAB PO SCH (21:00)
--- NOTE | 2019-07-03 07:02 | XR ---
EXAMINATION TYPE: XR chest 2V DATE OF EXAM: 07/03/2019 COMPARISON: Chest x-ray August 26, 2018 HISTORY: Shortness of breath. TECHNIQUE: Frontal and lateral views of the chest are obtained. FINDINGS: There is chronic parenchymal change without suspicious focal air space opacity, pleural ef fusion, or pneumothorax seen. The cardiac silhouette size remains within normal limits with dual keyur d pacemaker. The osseous structures are demineralized. Diminished size to left breast shadow with s urgical clips redemonstrated. IMPRESSION: Chronic changes without acute pulmonary process.
[2019-07-03] MEDS: HYDROcodone/APAP 7.5-325MG 1 EACH TAB PO PRN (08:59)
[2019-07-03] MEDS ORDERED: DICYCLOMINE 10 MG CAP PO SCH (09:00)
[2019-07-03] MEDS ORDERED: ASPIRIN 325 MG TAB PO SCH (09:00)
[2019-07-03] MEDS: PANTOPRAZOLE 40 MG TABLET PO SCH (09:00)
[2019-07-03] MEDS ORDERED: ASPIRIN 81 MG PO SCH (09:00)
[2019-07-03] MEDS ORDERED: CLOPIDOGREL 75 MG TAB PO SCH ×2 (09:00)
--- NOTE | 2019-07-03 09:00 | P.DS ---
Providers Date of admission: July 012019 Attending physician: Raudel Chauhan Primary care physician: [facility] Course: This is a very pleasant 53-year-old female patient who sees Dr. Basurto in the office on regular basis who was diagnosed recently with TIA/CVA. Transesophageal echocardiogram was performed and revealed evidence off patent nolan ovale was bidirectional shunt and also fenestrated interatrial septum. Because of that, the patient was admitted to the hospital yesterday and underwent successful percutaneous closure of patent foramen ovale using 25 mm Amplatzer PFO occluder with an excellent results and without any residual shunt. The procedure was performed from the right groin. She was seen this morning. She is asymptomatic from a cardiovascular standpoint overview. The right groin is soft and nontender and without any bruises. The chest x-ray was reviewed and seems to be unremarkable. An echocardiogram was performed which I reviewed as well and showed stable intra-atrial septum device without any evidence of pericardial effusion. The patient is going to be discharged today on dual antiplatelet therapy and she will follow-up with Dr. Basurto in the office. Plan - Discharge Summary Discharge Rx Participant: No New Discharge Prescriptions: No Action ALPRAZolam [Xanax] 1 mg PO TID PRN PRN Reason: Anxiety Cyclobenzaprine [Flexeril] 10 mg PO TID PRN PRN Reason: Muscle Spasm HYDROcodone/APAP 7.5-325MG [[place] 7.5-325] 1 tab PO TID PRN PRN Reason: Pain SUMAtriptan SUCCINATE [Imitrex] 50 mg PO BID PRN PRN Reason: Migraine Headache Aspirin 81 mg PO DAILY chew Atorvastatin [Lipitor] 40 mg PO HS #30 tab Clopidogrel [Plavix] 75 mg PO DAILY #30 tab Dicyclomine [Bentyl] 10 mg PO DAILY Omeprazole [PriLOSEC] 20 mg PO BID Discharge Medication List ALPRAZolam [Xanax] 1 mg PO TID PRN 02/10/17 [History] Cyclobenzaprine [Flexeril] 10 mg PO TID PRN 08/26/18 [History] HYDROcodone/APAP 7.5-325MG [[place] 7.5-325] 1 tab PO TID PRN 08/26/18 [History] SUMAtriptan SUCCINATE [Imitrex] 50 mg PO BID PRN 08/26/18 [History] Aspirin 81 mg PO DAILY chew 08/31/18 [Rx] Atorvastatin [Lipitor] 40 mg PO HS #30 tab 08/31/18 [Rx] Clopidogrel [Plavix] 75 mg PO DAILY #30 tab 08/31/18 [Rx] Dicyclomine [Bentyl] 10 mg PO DAILY 03/10/19 [History] Omeprazole [PriLOSEC] 20 mg PO BID 03/10/19 [History] Follow up Appointment(s)/Referral(s): Timmy Basurto MD [STAFF PHYSICIAN] - 1 Week Raudel Chauhan MD [STAFF PHYSICIAN] - (Please keep these follow up appointments: 1. July 08, 2019 at 10:15 AM 2. July 28, 2019 at 1:30 PM 3. January 28, 2020 at 2:00 PM 4. July 19, 2020 at 1:30 PM) Activity/Diet/Wound Care/Special Instructions: PFO closure precautions: 1. Support your puncture site by applying firm, steady pressure whenever you cough, laugh, sneeze or bear down to have a bowel movement (2-day restriction). 2. Watch for any excessive bruising, active bleeding, a firm knot forming under your skin, extreme tenderness and signs of infection (redness, swelling, fever). 3. Shower daily, do not soak puncture in a tub bath, jacuzzi, pool, fuentes etc. for 1 week. This is to prevent risk of infection. 4. Drink plenty of fluids the day of and day after your procedure to flush contrast dye out of your kidneys. 5. Take all medications as directed. Never stop any new medication without your physicians OK. 6. No driving for 2 days after procedure. 7. 10- pound weight lifting restriction for 1 week. 8. Low sodium/low fat diet. 9. Activity limited until follow up appointment with your chuck wagon driver. In case of any problems, please call [facility] [place] @ [phone].
[2019-07-03 09:07] VITALS: BP 97/52; PULSE 60; RESP 16
--- NOTE | 2019-07-03 16:16 | ECHOF ---
Referral Reason:Post ASD/PFO Insertion MEASUREMENTS -------- HEIGHT: 162.6 cm WEIGHT: 50.8 kg BP: RVIDd: 2.7 cm (< 3.3) IVSd: 0.9 cm (0.6 - 1.1) LVIDd: 4.2 cm (3.9 - 5.3) LVPWd: 0.9 cm (0.6 - 1.1) IVSs: 1.3 cm LVIDs: 2.3 cm LVPWs: 1.4 cm LA Diam: 2.6 cm (2.7 - 3.8) LAESV Index (A-L): 22.31 ml/m Ao Diam: 2.6 cm (2.0 - 3.7) AV Cusp: 2.3 cm (1.5 - 2.6) MV E Adrien: 0.88 m/s MV DecT: 285 ms MV A Adrien: 0.52 m/s MV E/A Ratio: 1.68 RAP: 5.00 mmHg RVSP: 20.86 mmHg FINDINGS -------- Sinus rhythm. This was a technically good study. The left ventricular size is normal. Left ventricular wall thickness is normal. Overall left vent ricular systolic function is normal with, an EF between 55 - 60 %. The right ventricle is normal in size. Normal LA size by volume 22+/-6 ml/m2. The right atrial size is normal. Prominent Chiari network seen in right atrium (normal finding). There is an interatrial closure device in place without evidence of shunt. The aortic valve is trileaflet, and appears structurally normal. No aortic stenosis or regurgitation. The mitral valve is normal. There is trace mitral regurgitation. Mild tricuspid regurgitation present. Right ventricular systolic pressure is normal at < 35 mmHg. There is no pulmonic regurgitation present. The aortic root size is normal. Normal inferior vena cava with normal inspiratory collapse consistent with estimated right atrial pre ssure of 5 mmHg. There is no pericardial effusion. CONCLUSIONS -------- 1. Sinus rhythm. 2. This was a technically good study. 3. The left ventricular size is normal. 4. Left ventricular wall thickness is normal. 5. Overall left ventricular systolic function is normal with, an EF between 55 - 60 %. 6. Normal LA size by volume 22+/-6 ml/m2. 7. Prominent Chiari network seen in right atrium (normal finding). 8. There is an interatrial closure device in place without evidence of shunt. 9. The aortic valve is trileaflet, and appears structurally normal. No aortic stenosis or regurgitati on. 10. There is trace mitral regurgitation. 11. Mild tricuspid regurgitation present. 12. Right ventricular systolic pressure is normal at < 35 mmHg. 13. There is no pulmonic regurgitation present. 14. Normal inferior vena cava with normal inspiratory collapse consistent with estimated right atrial pressure of 5 mmHg. 15. There is no pericardial effusion. BOAT CARPENTER MECHANIC: Drea Vickers RDCS
== END 2019-07-03 10:50 | disposition home or self-care (01) ==
LOC: CATHCVL 06:57 → 3SCARD 10:17 → CATHCVL 07-03 10:50
PROVIDERS: ATTEND Internal Medicine Interventional Cardiology
DX: Q21.1 Atrial septal defect (principal); Z86.73 Personal history of transient ischemic attack (TIA), and cerebral infarction without residual deficits; Z95.0 Presence of cardiac pacemaker; Z63.8 Other specified problems related to primary support group; F17.210 Nicotine dependence, cigarettes, uncomplicated; E78.5 Hyperlipidemia, unspecified; Z79.899 Other long term (current) drug therapy; Z79.82 Long term (current) use of aspirin; Z79.02 Long term (current) use of antithrombotics/antiplatelets; I47.1 Supraventricular tachycardia; I49.5 Sick sinus syndrome; I07.1 Rheumatic tricuspid insufficiency
CPT/HCPCS: 93306; 93581; 93662; 86900; 86901; 86850; 86920; 71046; C1759; C1769 ×4; C1894; C1817; J2250; J0690; J2001; J3010; J1644; J1170; Q9966

== ENCOUNTER → 2019-11-08 | Outpatient (CLI) | payer OTHER | END | disposition home or self-care (01) | LOC: LABWHC1 09:20 | PROVIDERS: ATTEND Physician Assistant | DX: I95.9 Hypotension, unspecified (principal) | CPT/HCPCS: 36415; 82533; 84443 ==

== ENCOUNTER → 2020-01-10 | Outpatient (CLI) | payer OTHER ==
[2020-01-10 08:22] LABS: Basophils # (A) 0.1 k/uL (0-0.2); Basophils % (A) 1 %; Eosinophils # (A) 0.1 k/uL (0-0.7); Eosinophils % (A) 2 %; HCT 39.5 % (34.0-46.0); HGB 12.6 gm/dL (11.4-16.0); Lymphocytes # (A) 2.5 k/uL (1.0-4.8); Lymphocytes % (A) 33 %; MCH 30.3 pg (25.0-35.0); MCHC 31.8 g/dL (31.0-37.0); MCV 95.4 fL (80.0-100.0); Mean Platelet Volume 7.7; Monocytes # (A) 0.5 k/uL (0-1.0); Monocytes % (A) 7 %; Neutrophils % (A) 55 %; Platelet Count 302 k/uL (150-450); RBC 4.14 m/uL (3.80-5.40); RDW 12.5 % (11.5-15.5); WBC 7.3 k/uL (3.8-10.6)
--- NOTE | 2020-01-10 08:25 | CT ---
EXAMINATION TYPE: CT lumbar spine wo con DATE OF EXAM: 01/10/2020 7:47 AM COMPARISON: None HISTORY: Low back pain CT DLP: 373.4 mGycm Automated exposure control for dose reduction was used. Unenhanced CT of the lumbar spine was performed. Bone and soft tissue window settings are submitted as well as coronal and sagittal reconstructions. L1-L2: Normal disc space height. No disc herniation protrusion or central stenosis. No facet joint arthropathy. No evidence for foraminal encroachment. L2-L3: Normal disc space height. No disc herniation protrusion or central stenosis. No facet joint arthropathy. No evidence for foraminal encroachment. L3-L4: Normal disc space height. No disc herniation protrusion or central stenosis. No facet joint arthropathy. No evidence for foraminal encroachment. L4-L5: Degenerative disc space narrowing. Left paracentral disc bulge resulting in left lateral reces s stenosis. No evidence for central stenosis. Mild left foraminal encroachment. L5-S1: Mild degenerative disc space narrowing. Broad-based posterior disc bulge effaces the ventral t hecal sac. No evidence for central stenosis or lateral recess stenosis. No foraminal encroachment. IMPRESSION: 1. Degenerative disc disease L4-5 and L5-S1. 2. Left lateral recess stenosis L4-5 as noted above.
== END | disposition home or self-care (01) ==
LOC: RADCTMAIN 07:28
PROVIDERS: ATTEND Psychiatry & Neurology Neurology
DX: M51.16 Intervertebral disc disorders with radiculopathy, lumbar region (principal); M48.061 Spinal stenosis, lumbar region without neurogenic claudication; D64.9 Anemia, unspecified
CPT/HCPCS: 72131; 85025

== ENCOUNTER 2020-01-14 22:22 | Emergency (ER) | payer OTHER ==
[2020-01-14] MEDS ORDERED: SODIUM CHLORIDE 0.9% 1,000 ML IV STA (22:34)
--- NOTE | 2020-01-14 22:36 | ED ---
Neuro HPI - General Chief Complaint: Neuro Symptoms/Deficit Stated Complaint: Stroke Symptoms Time Seen by Provider: 01/14/20 22:34 Source: patient, RN notes reviewed, old records reviewed Mode of arrival: ambulatory Limitations: no limitations - History of Present Illness Is the patient presenting with stroke symptoms?: No -: hour(s) Initial Comments: This is a 54-year-old female DEL with some nonspecific symptoms of weakness and dizziness patient may have felt like she had difficulty with her vision some blurry vision and symptoms are resolved upon arrival in the ER patient has history of TIA is on blood thinners. No recent trauma blood pressure is a little below she states he runs a little bit low no headache. No weakness in arms or legs Location: other (Some mild blurry vision) History of same: No Place: home Severity: mild Quality: numb, tingling Improves With: time Worsens With: none Context: gradual onset Associated Symptoms: other (Anxiety) Treatments Prior to Arrival: none - Related Data Home Medications: Home Medications Medication Instructions Recorded Confirmed ALPRAZolam [Xanax] 1 mg PO TID PRN 02/10/17 07/02/19 Cyclobenzaprine [Flexeril] 10 mg PO TID PRN 08/26/18 07/02/19 HYDROcodone/APAP 7.5-325MG [[place] 1 tab PO TID PRN 08/26/18 07/02/19 7.5-325] SUMAtriptan succinate [Imitrex] 50 mg PO BID PRN 08/26/18 07/01/19 Dicyclomine [Bentyl] 10 mg PO DAILY 03/10/19 07/02/19 Omeprazole [PriLOSEC] 20 mg PO BID 03/10/19 07/02/19 Previous Rx's Medication Instructions Recorded Aspirin 81 mg PO DAILY chew 08/31/18 Atorvastatin [Lipitor] 40 mg PO HS #30 tab 08/31/18 Clopidogrel [Plavix] 75 mg PO DAILY #30 tab 08/31/18 Allergies/Adverse Reactions: Allergies Allergy/AdvReac Type Severity Reaction Status Date / Time No Known Allergies Allergy Verified 01/14/20 22:30 Review of Systems ROS Statement: Those systems with pertinent positive or pertinent negative responses have been documented in the HPI. ROS Other: All systems not noted in ROS Statement are negative. General Exam Limitations: no limitations Stroke MDM - Lab Data Result diagrams: 01/14/20 22:52 01/14/20 22:52 Lab Results 01/14/20 01/14/20 01/14/20 Range/Units 22:37 22:52 22:52 WBC 7.6 (3.8-10.6) k/uL RBC 4.33 (3.80-5.40) m/uL Hgb 13.2 (11.4-16.0) gm/dL Hct 41.3 (34.0-46.0) % MCV 95.4 (80.0-100.0) fL MCH 30.4 (25.0-35.0) pg MCHC 31.9 (31.0-37.0) g/dL RDW 12.4 (11.5-15.5) % Plt Count 267 (150-450) k/uL Neutrophils % 57 % Lymphocytes % 36 % Monocytes % 4 % Eosinophils % 1 % Basophils % 1 % Neutrophils # 4.3 (1.3-7.7) k/uL Lymphocytes # 2.8 (1.0-4.8) k/uL Monocytes # 0.3 (0-1.0) k/uL Eosinophils # 0.1 (0-0.7) k/uL Basophils # 0.1 (0-0.2) k/uL PT 10.0 (9.0-12.0) sec INR 1.0 (<1.2) APTT 21.2 L (22.0-30.0) sec Sodium (137-145) mmol/L Potassium (3.5-5.1) mmol/L Chloride (98-107) mmol/L Carbon Dioxide (22-30) mmol/L Anion Gap mmol/L BUN (7-17) mg/dL Creatinine (0.52-1.04) mg/dL Est GFR (CKD-EPI)AfAm (>60 ml/min/1.73 sqM) Est GFR (CKD-EPI)NonAf (>60 ml/min/1.73 sqM) Glucose (74-99) mg/dL POC Glucose (mg/dL) 156 H (75-99) mg/dL POC Glu Sheet Metal Duct Installer Apprentice ID Brianne De La Cruz Calcium (8.4-10.2) mg/dL Phosphorus (2.5-4.5) mg/dL Magnesium (1.6-2.3) mg/dL Total Bilirubin (0.2-1.3) mg/dL AST (14-36) U/L ALT (4-34) U/L Alkaline Phosphatase (38-126) U/L Creatine Kinase (30-135) U/L Troponin I (0.000-0.034) ng/mL NT-Pro-B Natriuret Pep pg/mL Total Protein (6.3-8.2) g/dL Albumin (3.5-5.0) g/dL 01/14/20 01/14/20 01/14/20 Range/Units 22:52 22:52 22:52 WBC (3.8-10.6) k/uL RBC (3.80-5.40) m/uL Hgb (11.4-16.0) gm/dL Hct (34.0-46.0) % MCV (80.0-100.0) fL MCH (25.0-35.0) pg MCHC (31.0-37.0) g/dL RDW (11.5-15.5) % Plt Count (150-450) k/uL Neutrophils % % Lymphocytes % % Monocytes % % Eosinophils % % Basophils % % Neutrophils # (1.3-7.7) k/uL Lymphocytes # (1.0-4.8) k/uL Monocytes # (0-1.0) k/uL Eosinophils # (0-0.7) k/uL Basophils # (0-0.2) k/uL PT (9.0-12.0) sec INR (<1.2) APTT (22.0-30.0) sec Sodium 138 (137-145) mmol/L Potassium 3.7 (3.5-5.1) mmol/L Chloride 105 (98-107) mmol/L Carbon Dioxide 27 (22-30) mmol/L Anion Gap 6 mmol/L BUN 16 (7-17) mg/dL Creatinine 0.68 (0.52-1.04) mg/dL Est GFR (CKD-EPI)AfAm >90 (>60 ml/min/1.73 sqM) Est GFR (CKD-EPI)NonAf >90 (>60 ml/min/1.73 sqM) Glucose 159 H (74-99) mg/dL POC Glucose (mg/dL) (75-99) mg/dL POC Glu Sheet Metal Duct Installer Apprentice ID Calcium 9.4 (8.4-10.2) mg/dL Phosphorus 4.2 (2.5-4.5) mg/dL Magnesium 1.3 L (1.6-2.3) mg/dL Total Bilirubin 0.3 (0.2-1.3) mg/dL AST 20 (14-36) U/L ALT 12 (4-34) U/L Alkaline Phosphatase 52 (38-126) U/L Creatine Kinase 57 (30-135) U/L Troponin I <0.012 (0.000-0.034) ng/mL NT-Pro-B Natriuret Pep 173 pg/mL Total Protein 6.3 (6.3-8.2) g/dL Albumin 4.0 (3.5-5.0) g/dL - NIH Stroke Scale 1a. Level of Consciousness: (0) alert 1b. LOC Questions: (0) answers correctly 1c. LOC Commands: (0) performs tasks correctly 2. Best Gaze: (0) normal 3. Visual: (0) no visual loss 4. Facial Palsy: (0) normal symmetrical movement 5a. Motor Arm Left: (0) no drift 5b. Motor Arm Right: (0) no drift 6a. Motor Leg Left: (0) no drift 6b. Motor Leg Right: (0) no drift 7. Limb Ataxia: (0) absent 8. Sensory: (0) normal 9. Best Language: (0) no aphasia 10. Dysarthria: (0) normal 11. Extinction/Inattention: (0) no abnormality - Thrombolytic Inclusion/Exclusion Thrombolytic Exclusion Criteria: Onset of Symptoms Unknown - Medical Decision Making 54 female DF for evaluation some blurry vision weakness history of TIA all symptoms resolved here blood pressure improved with hydration CT negative asymptomatic - Radiology Data Radiology results: report reviewed (CT brain is negative for acute disease), image reviewed - EKG Data -: EKG Interpreted by Me (EKG is sinus rhythm 78 VT 166 QRS 84 QTc 442) Past Medical History Past Medical History: Cancer, CVA/TIA, Fibromyalgia, GERD/Reflux, Osteoarthritis (OA), Thyroid Disorder Additional Past Medical History / Comment(s): HYPOTHYROID, LT Breast CA. HX radiation, SEE DR HRARISON HISTORY AND PHYSICAL FOR CARDIAC HISTORY, POSSIBLE MIGRAINE HEADACHES History of Any Multi-Drug Resistant Organisms: None Reported Past Surgical History: Breast Surgery, Cholecystectomy, Hysterectomy, Pacemaker, Tubal Ligation Additional Past Surgical History / Comment(s): PARTIAL LT MASTECTOMY, LEAD WIRE REPLACED (FOR PACEMAKER), Past Anesthesia/Blood Transfusion Reactions: Motion Sickness Type of Cardiac Device: Permanent Pacemaker Device Placement Date:: 03/09/15 Past Psychological History: Anxiety Smoking Status: Current every day smoker Past Alcohol Use History: Rare Past Drug Use History: Marijuana - Past Family History Father Family Medical History: No Reported History Additional Family Medical History / Comment(s): Father is alive but she does not know his medical history. Mother Family Medical History: No Reported History Additional Family Medical History / Comment(s): Mother is alive at age 74 with no major medical problems. Brother(s) Family Medical History: No Reported History Additional Family Medical History / Comment(s): The patient has 1 brother with no major medical problems. Sister(s) Family Medical History: No Reported History Additional Family Medical History / Comment(s): Patient has one sister and she has irritable bowel syndrome. Daughter(s) Family Medical History: No Reported History Additional Family Medical History / Comment(s): Patient has one daughter with no major medical problems. Course Vital Signs 01/14/20 01/14/20 22:24 23:59 Temperature 97.7 F 97.9 F Pulse Rate 96 86 Respiratory 18 16 Rate Blood Pressure 108/61 93/66 O2 Sat by Pulse 98 99 Oximetry - Reevaluation(s) Reevaluation #1: 01/15/20 00:15 Medical record is reviewed Reevaluation #2: 01/15/20 00:15 Patient symptoms remain resolved Disposition Clinical Impression: Blurred vision, Anxiety, TIA (transient ischemic attack) Disposition: HOME SELF-CARE Condition: Good Instructions (If sedation given, give patient instructions): Transient Ischemic Attack (ED) Is patient prescribed a controlled substance at d/c from ED?: No Referrals: London Vera DO [Primary Care Provider] - 1-2 days
[2020-01-14 22:49] LABS: Glucose,Whole Blood 156 mg/dL (75-99)
[2020-01-14 23:24] LABS: Basophils # (A) 0.1 k/uL (0-0.2); Basophils % (A) 1 %; Eosinophils # (A) 0.1 k/uL (0-0.7); Eosinophils % (A) 1 %; HCT 41.3 % (34.0-46.0); HGB 13.2 gm/dL (11.4-16.0); Lymphocytes # (A) 2.8 k/uL (1.0-4.8); Lymphocytes % (A) 36 %; MCH 30.4 pg (25.0-35.0); MCHC 31.9 g/dL (31.0-37.0); MCV 95.4 fL (80.0-100.0); Mean Platelet Volume 7.7; Monocytes # (A) 0.3 k/uL (0-1.0); Monocytes % (A) 4 %; Neutrophils # (A) 4.3 k/uL (1.3-7.7); Neutrophils % (A) 57 %; Platelet Count 267 k/uL (150-450); RBC 4.33 m/uL (3.80-5.40); RDW 12.4 % (11.5-15.5); WBC 7.6 k/uL (3.8-10.6)
--- NOTE | 2020-01-14 23:27 | CT ---
EXAMINATION TYPE: CT brain wo con DATE OF EXAM: 01/14/2020 COMPARISON: 08/28/2018 HISTORY: Weakness CT DLP: 1041.4 mGycm Automated exposure control for dose reduction was used. Ventricles and sulci appear normal. There is no mass effect nor midline shift. There is no sign of in tracranial hemorrhage. Calvarium is intact. IMPRESSION: Normal unenhanced head CT scan. No change.
[2020-01-14 23:36] LABS: ALT 12 U/L (4-34); AST 20 U/L (14-36); African American GFR (CKD) >90 (>60 ml/min/1.73 sqM); Alkaline Phosphatase 52 U/L (38-126); Anion Gap 6 mmol/L; Blood Urea Nitrogen 16 mg/dL (7-17); Calcium 9.4 mg/dL (8.4-10.2); Carbon Dioxide 27 mmol/L (22-30); Chloride 105 mmol/L (98-107); Creatine Kinase 57 U/L (30-135); Glucose 159 mg/dL (74-99); Magnesium 1.3 mg/dL (1.6-2.3); Non-African American GFR(CKD) >90 (>60 ml/min/1.73 sqM); Phosphorus 4.2 mg/dL (2.5-4.5); Potassium 3.7 mmol/L (3.5-5.1); Sodium 138 mmol/L (137-145); Total Bilirubin 0.3 mg/dL (0.2-1.3); Total Protein 6.3 g/dL (6.3-8.2)
[2020-01-14 23:47] LABS: Partial Thromboplastin Time 21.2 sec (22.0-30.0)
[2020-01-15] MEDS ORDERED: SODIUM CHLORIDE 0.9% 1,000 ML IV STA (00:16)
[2020-01-15 00:57] VITALS: BP 92/66; PULSE 77; RESP 18; TEMP 98
== END 2020-01-15 00:05 | disposition home or self-care (01) ==
LOC: EC 22:22
DX: G45.9 Transient cerebral ischemic attack, unspecified (principal); F41.9 Anxiety disorder, unspecified; K21.9 Gastro-esophageal reflux disease without esophagitis; M79.7 Fibromyalgia; E03.9 Hypothyroidism, unspecified; M19.90 Unspecified osteoarthritis, unspecified site; F17.200 Nicotine dependence, unspecified, uncomplicated; Z79.890 Hormone replacement therapy; Z79.899 Other long term (current) drug therapy; Z92.3 Personal history of irradiation; Z86.73 Personal history of transient ischemic attack (TIA), and cerebral infarction without residual deficits; Z85.3 Personal history of malignant neoplasm of breast; Z90.12 Acquired absence of left breast and nipple; Z95.0 Presence of cardiac pacemaker
CPT/HCPCS: 36415; 70450; 80053; 82550; 83735; 83880; 84100; 84484; 85025; 85610; 85730; 93005; 96360; 99285

== ENCOUNTER → 2020-01-28 | Outpatient (CLI) | payer OTHER ==
--- NOTE | 2020-01-28 09:52 | CT ---
EXAMINATION TYPE: CT cervical spine wo con DATE OF EXAM: 01/28/2020 COMPARISON: CT cervical spine March 03, 2018 HISTORY: Cervicalgia per order. Severe headache with neck pain for 2+ years causing left arm pain or numbness. CT DLP: 324.9 mGycm. Automated Exposure Control for Dose Reduction was Utilized. TECHNIQUE: CT scan of the cervical spine is obtained without contrast, axial images are obtained, sa gittal and coronal reformatted images are also reviewed. FINDINGS: Cervical spine is visualized in its entirety from C1 through upper thoracic levels, redemon strates satisfactory alignment without evidence of acute fracture or dislocation. Prevertebral soft tissue remains within normal limits. The C1-C2 articulation remains within normal limits on the esha nal images. Vertebral body heights and disc space heights are fairly well-maintained. No large manager of operations ior disc herniation is present. Review of axial images shows C2-C3 and C3-C4 levels to appear within normal limits. Axial images at C4-C5 level redemonstrate right foraminal spur disc complex causing asymmetric mild r ight-sided neural foraminal narrowing sagittal image 18 and axial image 48. Findings stable. Axial images at C5-C6 level show left paracentral/foraminal disc protrusion on image 55 causing asymm etric moderate left-sided neural foraminal narrowing on current study. Axial images at C6-C7 and C7-T1 levels are felt to remain within normal limits. Mild to moderate biapical pleural/parenchymal scarring in the visualized lung apices is redemonstrate d. Thyroid gland is normal in size. IMPRESSION: Eccentric disc herniation C5-C6 level causing moderate left-sided neural foraminal narrow ing is felt present.
== END | disposition home or self-care (01) ==
LOC: RADCTMAIN 09:14
PROVIDERS: ATTEND Psychiatry & Neurology Neurology
DX: M50.222 Other cervical disc displacement at C5-C6 level (principal); M48.02 Spinal stenosis, cervical region
CPT/HCPCS: 72125

== ENCOUNTER → 2020-08-01 | Outpatient (CLI) | payer OTHER | END | disposition home or self-care (01) | LOC: LABWHC1 17:05 | PROVIDERS: ATTEND Family Medicine | DX: Z20.822 Contact with and (suspected) exposure to COVID-19 (principal) | CPT/HCPCS: U0003; C9803 ==

== ENCOUNTER → 2020-11-22 | Outpatient (CLI) | payer OTHER ==
--- NOTE | 2020-11-23 08:20 | BD ---
EXAMINATION TYPE: Axial Bone Density DATE OF EXAM: 11/22/2020 COMPARISON: NONE CLINICAL HISTORY: Height: 64 IN Weight: 119 LBS FRAX RISK QUESTIONS: Secondary Osteoporosis: 3. Menopause before 45: TOTAL HYST AGE 34 Current Tobacco Use: YES RISK FACTORS HISTORY OF: Active: LIMITED Diet low in dairy products/other sources of calcium: YES Postmenopausal woman: TOTAL HYST AGE 34 Take estrogen and/or progesterone medications: NOT NOW How long: TOOK FOR APPROX 10 YEARS Frequent falls: YES LOSS OF BALANCE; KNEES GIVE OUT MEDICATIONS: Osteoporosis Medications: NOT NOW Which medication: PT PREVIOUSLY DID PROLIA INJECTIONS Additional Medications: NORCO, XANAX, FLEXERIL, IMITREX, HEART MEDS, OMEPRAZOLE, IBUPROFEN Additional History: BREAST CANCER WITH RADIATION EXAM MEASUREMENTS: Bone mineral densitometry was performed using the [employer] System. Bone mineral density as measured about the Lumbar spine is: ----- L1-L4(G/cm2): 0.825 T Score Values are as follows: ----- L2: -3.5 ----- L3: -2.9 ----- L4: -3.2 ----- L1-L4: -3.0 Bone mineral density BASELINE Bone mineral density about the R hip (g/cm2): 0.699 Bone mineral density about the L hip (g/cm2): 0.720 T Score values are as follows: -----R Neck: -2.4 -----L Neck: -2.3 -----R Total: -2.8 -----L Total: -2.8 Bone mineral density BASELINE IMPRESSION: Osteoporosis (T Score less than -2.5). There is increased fracture risk and therapy is usually indicated based on age. Re-Screen 1-2 years. NOTE: T-SCORE=SD OF THE YOUNG ADULT MEAN.
== END | disposition home or self-care (01) ==
LOC: RADBDWWP 13:02
PROVIDERS: ATTEND Family Medicine
DX: M81.0 Age-related osteoporosis without current pathological fracture (principal)
CPT/HCPCS: 77080

== ENCOUNTER → 2020-12-28 | Outpatient (CLI) | payer OTHER ==
[~2020-12-28] MED LIST changes: -ALPRAZolam 0.25 MG TAB PO PRN; -ALPRAZolam 0.5 MG TAB PO PRN; -ASPIRIN 325 MG TAB PO STA; +SODIUM CHLORIDE 0.9% 500 ML 500 ML in EMPTY BAG 1 BAG IV PRN; +ZOLEDRONIC ACID 5 MG in SODIUM CHLORIDE 0.9% 100 ML IV NR
[2020-12-28 13:03] VITALS: BP 97/58; PULSE 80; RESP 16; TEMP 98.3
== END ==
LOC: PROCWHC3 12:45
PROVIDERS: ATTEND Family Medicine
DX: M81.0 Age-related osteoporosis without current pathological fracture (principal)
CPT/HCPCS: 96365; J3489

== ENCOUNTER 2020-12-30 12:02 | Observation (INO) | payer OTHER ==
[2020-12-30] MEDS ORDERED: PANTOPRAZOLE 40 MG/10 ML VIAL IVP STA (12:34)
[2020-12-30] MEDS ORDERED: ONDANSETRON 4 MG/2 ML VIAL IVP STA (12:34)
[2020-12-30] MEDS ORDERED: MORPHINE SULFATE 4 MG/ML SYRINGE IV STA (12:34)
[2020-12-30] MEDS ORDERED: SODIUM CHLORIDE 0.9% 1,000 ML IV STA (12:34)
--- NOTE | 2020-12-30 12:45 | ED ---
General Adult HPI - General Chief complaint: Abdominal Pain Stated complaint: Vomiting Time Seen by Provider: 12/30/20 12:29 Source: patient, family, RN notes reviewed, old records reviewed Mode of arrival: wheelchair Limitations: no limitations - History of Present Illness Initial comments: 55 yo female presenting for evaluation of abdominal pain, vomiting, diarrhea. Symptoms have been present for the past 9 hours. Patient is unable to give a detailed history because of pain and persistent nausea. is at bedside who states that she does have episodes similar to this on approximately a monthly basis. She is usually able to manage his symptoms at home with oral medication. She has a previous surgical history of cholecystectomy. She states that she has had diarrhea and vomiting multiple episodes and generalized abdominal pain. No fever. - Related Data Home Medications Medication Instructions Recorded Confirmed ALPRAZolam [Xanax] 1 mg PO TID PRN 02/10/17 07/02/19 Cyclobenzaprine [Flexeril] 10 mg PO TID PRN 08/26/18 07/02/19 HYDROcodone/APAP 7.5-325MG [[place] 1 tab PO TID PRN 08/26/18 07/02/19 7.5-325] SUMAtriptan succinate [Imitrex] 50 mg PO BID PRN 08/26/18 07/01/19 Dicyclomine [Bentyl] 10 mg PO DAILY 03/10/19 07/02/19 Omeprazole [PriLOSEC] 20 mg PO BID 03/10/19 07/02/19 Previous Rx's Medication Instructions Recorded Aspirin 81 mg PO DAILY chew 08/31/18 Atorvastatin [Lipitor] 40 mg PO HS #30 tab 08/31/18 Clopidogrel [Plavix] 75 mg PO DAILY #30 tab 08/31/18 Allergies Allergy/AdvReac Type Severity Reaction Status Date / Time No Known Allergies Allergy Verified 12/30/20 12:24 Review of Systems ROS Statement: Those systems with pertinent positive or pertinent negative responses have been documented in the HPI. ROS Other: All systems not noted in ROS Statement are negative. Past Medical History Past Medical History: Cancer, CVA/TIA, Fibromyalgia, GERD/Reflux, Osteoarthritis (OA), Thyroid Disorder Additional Past Medical History / Comment(s): HYPOTHYROID, LT Breast CA. HX radiation, SEE DR HARRISON HISTORY AND PHYSICAL FOR CARDIAC HISTORY, POSSIBLE MIGRAINE HEADACHES History of Any Multi-Drug Resistant Organisms: None Reported Past Surgical History: Breast Surgery, Cholecystectomy, Hysterectomy, Pacemaker, Tubal Ligation Additional Past Surgical History / Comment(s): PARTIAL LT MASTECTOMY, LEAD WIRE REPLACED (FOR PACEMAKER), Past Anesthesia/Blood Transfusion Reactions: Motion Sickness Type of Cardiac Device: Permanent Pacemaker Device Placement Date:: 03/09/15 Past Psychological History: Anxiety Smoking Status: Current every day smoker Past Alcohol Use History: None Reported Past Drug Use History: None Reported - Past Family History Father Family Medical History: No Reported History Additional Family Medical History / Comment(s): Father is alive but she does not know his medical history. Mother Family Medical History: No Reported History Additional Family Medical History / Comment(s): Mother is alive at age 74 with no major medical problems. Brother(s) Family Medical History: No Reported History Additional Family Medical History / Comment(s): The patient has 1 brother with no major medical problems. Sister(s) Family Medical History: No Reported History Additional Family Medical History / Comment(s): Patient has one sister and she has irritable bowel syndrome. Daughter(s) Family Medical History: No Reported History Additional Family Medical History / Comment(s): Patient has one daughter with no major medical problems. General Exam Limitations: no limitations General appearance: alert, in distress Head exam: Present: atraumatic, normocephalic Eye exam: Present: normal appearance, PERRL ENT exam: Present: mucous membranes moist Neck exam: Present: normal inspection. Absent: tenderness, meningismus Respiratory exam: Present: normal lung sounds bilaterally. Absent: respiratory distress, wheezes Cardiovascular Exam: Present: regular rate, normal rhythm GI/Abdominal exam: Present: soft, distended, tenderness Neurological exam: Present: alert, oriented X3, CN II-XII intact. Absent: motor sensory deficit Psychiatric exam: Present: normal affect, normal mood Skin exam: Present: warm, dry, intact. Absent: cyanosis, diaphoretic Course Vital Signs 12/30/20 12/30/20 12/30/20 12:24 14:44 16:24 Temperature 97.5 F L Pulse Rate 102 H 58 L 58 L Respiratory 18 18 18 Rate Blood Pressure 122/67 136/80 119/73 O2 Sat by Pulse 100 98 98 Oximetry Medical Decision Making - Medical Decision Making 55 yo female presenting for evaluation of abdominal pain nausea vomiting. Patient is quite uncomfortable symptomatic treatment given in the emergency department. Workup initiated. She has mild leukocytosis, stable hemoglobin, no rmal lactic acid. Normal electrolytes. X-rays negative for obstruction or intraperitoneal free air. CT showing dilated common bile duct and pancreatic duct, may be related to previous cholecystectomy. Patient remains symptomatic while the emergency department course multiple doses of pain medication and antiemetics. Given the ongoing symptoms I will place this patient in observation. Case discussed with Dr. Kingsley who will admit. - Lab Data Result diagrams: 12/30/20 12:46 12/30/20 12:46 Lab Results 12/30/20 12/30/20 12/30/20 Range/Units 12:46 12:46 12:46 WBC 12.9 H (3.8-10.6) k/uL RBC 4.43 (3.80-5.40) m/uL Hgb 13.9 (11.4-16.0) gm/dL Hct 41.3 (34.0-46.0) % MCV 93.2 (80.0-100.0) fL MCH 31.4 (25.0-35.0) pg MCHC 33.7 (31.0-37.0) g/dL RDW 13.0 (11.5-15.5) % Plt Count 323 (150-450) k/uL MPV 7.3 Neutrophils % 80 % Lymphocytes % 14 % Monocytes % 4 % Eosinophils % 0 % Basophils % 0 % Neutrophils # 10.3 H (1.3-7.7) k/uL Lymphocytes # 1.9 (1.0-4.8) k/uL Monocytes # 0.5 (0-1.0) k/uL Eosinophils # 0.1 (0-0.7) k/uL Basophils # 0.0 (0-0.2) k/uL PT 10.2 (9.0-12.0) sec INR 0.9 (<1.2) APTT 21.1 L (22.0-30.0) sec Sodium (137-145) mmol/L Potassium (3.5-5.1) mmol/L Chloride (98-107) mmol/L Carbon Dioxide (22-30) mmol/L Anion Gap mmol/L BUN (7-17) mg/dL Creatinine (0.52-1.04) mg/dL Est GFR (CKD-EPI)AfAm (>60 ml/min/1.73 sqM) Est GFR (CKD-EPI)NonAf (>60 ml/min/1.73 sqM) Glucose (74-99) mg/dL Plasma Lactic Acid Tj (0.7-2.0) mmol/L Calcium (8.4-10.2) mg/dL Total Bilirubin (0.2-1.3) mg/dL AST (14-36) U/L ALT (4-34) U/L Alkaline Phosphatase (38-126) U/L Total Protein (6.3-8.2) g/dL Albumin (3.5-5.0) g/dL Amylase (30-110) U/L Lipase (23-300) U/L Urine Color Light Yellow Urine Appearance Clear (Clear) Urine pH 8.5 H (5.0-8.0) Ur Specific [place] 1.036 H (1.001-1.035) Urine Protein Negative (Negative) Urine Glucose (UA) Negative (Negative) Urine Ketones Negative (Negative) Urine Blood Negative (Negative) Urine Nitrite Negative (Negative) Urine Bilirubin Negative (Negative) Urine Urobilinogen <2.0 (<2.0) mg/dL Ur Leukocyte Esterase Negative (Negative) 12/30/20 12/30/20 Range/Units 12:46 12:46 WBC (3.8-10.6) k/uL RBC (3.80-5.40) m/uL Hgb (11.4-16.0) gm/dL Hct (34.0-46.0) % MCV (80.0-100.0) fL MCH (25.0-35.0) pg MCHC (31.0-37.0) g/dL RDW (11.5-15.5) % Plt Count (150-450) k/uL MPV Neutrophils % % Lymphocytes % % Monocytes % % Eosinophils % % Basophils % % Neutrophils # (1.3-7.7) k/uL Lymphocytes # (1.0-4.8) k/uL Monocytes # (0-1.0) k/uL Eosinophils # (0-0.7) k/uL Basophils # (0-0.2) k/uL PT (9.0-12.0) sec INR (<1.2) APTT (22.0-30.0) sec Sodium 141 (137-145) mmol/L Potassium 3.5 (3.5-5.1) mmol/L Chloride 104 (98-107) mmol/L Carbon Dioxide 27 (22-30) mmol/L Anion Gap 10 mmol/L BUN 23 H (7-17) mg/dL Creatinine 0.64 (0.52-1.04) mg/dL Est GFR (CKD-EPI)AfAm >90 (>60 ml/min/1.73 sqM) Est GFR (CKD-EPI)NonAf >90 (>60 ml/min/1.73 sqM) Glucose 120 H (74-99) mg/dL Plasma Lactic Acid Tj 1.6 (0.7-2.0) mmol/L Calcium 9.3 (8.4-10.2) mg/dL Total Bilirubin 0.4 (0.2-1.3) mg/dL AST 46 H (14-36) U/L ALT 50 H (4-34) U/L Alkaline Phosphatase 71 (38-126) U/L Total Protein 6.8 (6.3-8.2) g/dL Albumin 4.3 (3.5-5.0) g/dL Amylase 50 (30-110) U/L Lipase 24 (23-300) U/L Urine Color Urine Appearance (Clear) Urine pH (5.0-8.0) Ur Specific [place] (1.001-1.035) Urine Protein (Negative) Urine Glucose (UA) (Negative) Urine Ketones (Negative) Urine Blood (Negative) Urine Nitrite (Negative) Urine Bilirubin (Negative) Urine Urobilinogen (<2.0) mg/dL Ur Leukocyte Esterase (Negative) Disposition Clinical Impression: Abdominal pain, Intractable nausea and vomiting Disposition: ADMITTED IP TO THIS [facility] Condition: Stable Is patient prescribed a controlled substance at d/c from ED?: No Referrals: London Vera DO [Primary Care Provider] - 1-2 days Decision to Admit Reason: Admit from EC Decision Date: 12/30/20 Decision Time: 16:41
[2020-12-30 13:05] LABS: Basophils % (A) 0 %; Eosinophils # (A) 0.1 k/uL (0-0.7); Eosinophils % (A) 0 %; HCT 41.3 % (34.0-46.0); HGB 13.9 gm/dL (11.4-16.0); Lymphocytes # (A) 1.9 k/uL (1.0-4.8); Lymphocytes % (A) 14 %; MCH 31.4 pg (25.0-35.0); MCHC 33.7 g/dL (31.0-37.0); MCV 93.2 fL (80.0-100.0); Mean Platelet Volume 7.3; Monocytes # (A) 0.5 k/uL (0-1.0); Monocytes % (A) 4 %; Neutrophils # (A) 10.3 k/uL (1.3-7.7); Neutrophils % (A) 80 %; Platelet Count 323 k/uL (150-450); RBC 4.43 m/uL (3.80-5.40); WBC 12.9 k/uL (3.8-10.6)
[2020-12-30 13:08] LABS: ALT 50 U/L (4-34); AST 46 U/L (14-36); African American GFR (CKD) >90 (>60 ml/min/1.73 sqM); Albumin 4.3 g/dL (3.5-5.0); Alkaline Phosphatase 71 U/L (38-126); Amylase 50 U/L (30-110); Anion Gap 10 mmol/L; Blood Urea Nitrogen 23 mg/dL (7-17); Calcium 9.3 mg/dL (8.4-10.2); Carbon Dioxide 27 mmol/L (22-30); Chloride 104 mmol/L (98-107); Glucose 120 mg/dL (74-99); Lipase 24 U/L (23-300); Non-African American GFR(CKD) >90 (>60 ml/min/1.73 sqM); Potassium 3.5 mmol/L (3.5-5.1); Sodium 141 mmol/L (137-145); Total Bilirubin 0.4 mg/dL (0.2-1.3); Total Protein 6.8 g/dL (6.3-8.2)
[2020-12-30 13:13] LABS: INR 0.9 (<1.2); Prothrombin Time 10.2 sec (9.0-12.0)
[2020-12-30 13:15] LABS: Partial Thromboplastin Time 21.1 sec (22.0-30.0)
--- NOTE | 2020-12-30 13:48 | CT ---
EXAMINATION TYPE: CT abdomen pelvis w con DATE OF EXAM: 12/30/2020 HISTORY: Abdominal pain CT DLP: 623.4mGycm Automated Exposure Control for Dose Reduction was Utilized. CONTRAST: CT scan of the abdomen and pelvis is performed with IV Contrast, patient injected with 100 mL of Isov ue 300. COMPARISON: I 03/17/2019 FINDINGS: LUNG BASES: No significant abnormality is appreciated. INCLUDED CARDIAC STRUCTURES: No cardiomegaly. Partially seen cardiac device leads. LIVER: No significant abnormality is appreciated. GALLBLADDER : Nonvisualized similar to prior study. BILIARY TREE: Prominent extrahepatic common bile duct could be related to cholecystectomy. PANCREAS: Prominent pancreatic duct, slightly increased compared to prior. No pancreatic mass seen. SPLEEN: No significant abnormality is seen. ADRENALS: No significant abnormality is seen. KIDNEYS AND URETERS: No significant abnormality is seen. URINARY BLADDER: No significant abnormality is appreciated. ESOPHAGUS: Mild distal esophageal wall thickening could be related to under distention versus other p athology. STOMACH: No significant abnormality is seen. SMALL BOWEL: Normal caliber. Lack of oral contrast limits evaluation. LARGE BOWEL: Left colonic diverticulosis without evidence for acute diverticulitis. APPENDIX: Normal in appearance. HERNIAS: No significant abnormality is seen. UTERUS/ADNEXA: Nonvisualized uterus. Phleboliths seen in the pelvis. No abnormal adnexal mass seen. PERITONEUM/MESENTRY: No pneumoperitoneum or ascites. LYMPH NODES: No enlarged retroperitoneal or pelvic lymph nodes are appreciated. MAJOR VASCULAR STRUCTURES: Nonaneurysmal aorta. OSSEOUS STRUCTURES: No acute osseous abnormality. IMPRESSION: 1. Prominent extrahepatic common bile duct and main pancreatic duct could be correlated with liver an d pancreatic enzymes, the need for additional imaging should be determined on clinical basis. Status post cholecystectomy. 2. Mild distal esophageal wall thickening could be related to under distention versus esophagitis. 3. Left colonic diverticulosis without evidence for acute diverticulitis.
--- NOTE | 2020-12-30 14:17 | XR ---
EXAMINATION TYPE: XR KUB DATE OF EXAM: 12/30/2020 COMPARISON: NONE HISTORY: 55 years Female. STUDY INDICATION GIVEN: abdominal pain . TECHNIQUE: Supine abdominal radiograph IMPRESSION: No evidence for intestinal obstruction. Residual contrast is seen in the renal collecting system from recent contrast administration. Apparen t narrowing of the proximal left ureter, could be related to contractility of the ureter rather than true narrowing. No abnormal calcifications or evidence for organomegaly. No acute osseous abnormality.
[2020-12-30] MEDS ORDERED: METOCLOPRAMIDE 5 MG/ML 2 ML VIAL IVP STA (14:32)
[2020-12-30] MEDS ORDERED: MORPHINE SULFATE 4 MG/ML SYRINGE IVP STA (14:32)
[2020-12-30 14:36] LABS: Appearance,Urine Clear (Clear); Bilirubin,Urine Negative (Negative); Blood,Urine Negative (Negative); Color,Urine Light Yellow; Glucose,Urine (UA) Negative (Negative); Ketones,Urine Negative (Negative); Leukocyte Esterase,Urine Negative (Negative); Nitrite,Urine Negative (Negative); PH, Urine 8.5 (5.0-8.0); Protein,Urine Negative (Negative); Specific Gravity,Urine 1.036 (1.001-1.035); Urobilinogen,Urine <2.0 mg/dL (<2.0)
[2020-12-30] MEDS ORDERED: NALOXONE 0.4 MG/ML 1 ML VIAL IV PRN (16:36)
[2020-12-30] MEDS ORDERED: ONDANSETRON 4 MG/2 ML VIAL IVP PRN (16:36)
[2020-12-30] MEDS: SODIUM CHLORIDE 0.9% 1,000 ML IV SCH (17:28)
[2020-12-30] MEDS: MORPHINE SULFATE 4 MG/ML SYRINGE IV PRN (18:54)
[2020-12-30] MEDS ORDERED: ALPRAZolam 1 MG TAB PO PRN (19:23)
[2020-12-30] MEDS ORDERED: DICYCLOMINE 10 MG CAP PO PRN (19:23)
[2020-12-30] MEDS ORDERED: SCOPOLAMINE 1.5MG/72HR PATCH TRANSDERM SCH (20:00)
[2020-12-30] MEDS: PANTOPRAZOLE 40 MG/10 ML VIAL IVP SCH (20:47)
[2020-12-30] MEDS: metroNIDAZOLE-NS PMX 500 MG in SALINE 1 100ML.BAG IVPB SCH (20:47)
[2020-12-30] MEDS: AZITHROMYCIN 500 MG in SODIUM CHLORIDE 0.9% 250 ML IVPB SCH (22:37)
[2020-12-30] MEDS: ACETAMINOPHEN TAB 325 MG TAB PO PRN (22:37)
[2020-12-31] MEDS: metroNIDAZOLE-NS PMX 500 MG in SALINE 1 100ML.BAG IVPB SCH ×3 (04:12→19:36)
[2020-12-31 05:32] LABS: ALT 40 U/L (4-34); AST 34 U/L (14-36); African American GFR (CKD) >90 (>60 ml/min/1.73 sqM); Albumin 3.4 g/dL (3.5-5.0); Albumin/Globulin Ratio 1.4; Alkaline Phosphatase 60 U/L (38-126); Anion Gap 6 mmol/L; Blood Urea Nitrogen 11 mg/dL (7-17); Calcium 8.2 mg/dL (8.4-10.2); Carbon Dioxide 24 mmol/L (22-30); Chloride 106 mmol/L (98-107); Globulin 2.4 g/dL; Glucose 105 mg/dL (74-99); Magnesium 2.1 mg/dL (1.6-2.3); Non-African American GFR(CKD) >90 (>60 ml/min/1.73 sqM); Potassium 3.4 mmol/L (3.5-5.1); Sodium 136 mmol/L (137-145); Total Bilirubin 0.4 mg/dL (0.2-1.3); Total Protein 5.8 g/dL (6.3-8.2)
[2020-12-31] MEDS: SODIUM CHLORIDE 0.9% 1,000 ML IV SCH ×2 (05:38→19:37)
[2020-12-31] MEDS: HYDROcodone/APAP 7.5-325MG 1 EACH TAB PO PRN ×2 (07:27→21:42)
[2020-12-31] MEDS: PANTOPRAZOLE 40 MG/10 ML VIAL IVP SCH ×2 (07:52→19:37)
[2020-12-31 08:52] LABS: Basophils # (A) 0.01 X 10*3/uL (0.00-0.10); Basophils % (A) 0.1 %; Eosinophils # (A) 0.01 X 10*3/uL (0.04-0.35); Eosinophils % (A) 0.1 %; HCT 35.6 % (37.2-46.3); HGB 11.7 g/dL (12.0-15.0); Lymphocytes # (A) 2.05 X 10*3/uL (0.90-5.00); Lymphocytes % (A) 22.2 %; MCH 30.2 pg (27.0-32.0); MCHC 32.9 g/dL (32.0-37.0); MCV 91.8 fL (80.0-97.0); Mean Platelet Volume 10.2 fL (9.5-12.2); Monocytes # (A) 0.75 X 10*3/uL (0.20-1.00); Monocytes % (A) 8.1 %; Neutrophils # (A) 6.41 X 10*3/uL (1.80-7.70); Neutrophils % (A) 69.3 %; Platelet Count 249 X 10*3/uL (140-440); RBC 3.88 X 10*6/uL (4.10-5.20); RDW 12.4 % (11.5-14.5); WBC 9.25 X 10*3/uL (4.50-10.00)
[2020-12-31] MEDS ORDERED: PANTOPRAZOLE 40 MG/10 ML VIAL IV SCH (09:00)
[2020-12-31] MEDS: ACETAMINOPHEN TAB 325 MG TAB PO PRN (09:51)
[2020-12-31] MEDS: CYCLOBENZAPRINE 10 MG TAB PO PRN (09:51)
[2020-12-31] MEDS: MORPHINE SULFATE 4 MG/ML SYRINGE IV PRN ×2 (12:11→18:21)
[2020-12-31] MEDS ORDERED: POTASSIUM CHLORIDE ER 20 MEQ TAB.ER PO STA (13:25)
--- NOTE | 2020-12-31 16:00 | P.HPIM ---
History of Present Illness H&P Date: 12/30/20 This is a 55-year-old pleasant lady, patient of Dr. Vera. With known history of ductal carcinoma left breast, status post lumpectomy regurgitation, sick sinus syndrome, requiring pacemaker February 2015, thyroiditis, chronic headaches under the care of Dr. Lyons. Patient was admitted emergency room secondary to abdominal pain, vomiting and diarrhea. The symptoms are for the past 9 hours, patient apparently has similar symptoms like these on a monthly basis, prior history of cholecystectomy. Not much information to me Friday today, as the patient's very miserable, the mother is at the bedside, for which we've gotten some more information, however this has been one of the worst sym ptoms that she has with the belly cramps, diarrhea, no fever, and generalized abdominal pain. Apparently she gets this at least 2 times per month, no sick contacts at home, no fever no chills. She sees Dr. Conner, no proper diagnosis in the past, patient does not recollect any colonoscopy Review of Systems Constitutional: Reports as per HPI, Denies anorexia, Denies chills, Denies chronic headaches, Denies chronic pain, Denies daytime sleepiness, Denies fatigue, Denies fever, Denies lethargy, Denies malaise, Denies night sweats, Denies poor appetite, Denies sweats, Denies weakness, Denies weight gain, Denies weight loss Ears, nose, mouth and throat: Reports as per HPI, Denies ant. neck pain, Denies bleeding gums, Denies dental pain, Denies dysphagia, Denies epistaxis, Denies headache, Denies hoarseness, Denies mouth pain, Denies nasal congestion, Denies nasal discharge, Denies neck fullness/pressure, Denies neck lump, Denies nose pain, Denies odynophagia, Denies post-nasal drip, Denies sinus pain, Denies sinus pressure, Denies swelling in mouth, Denies swelling in throat, Denies sore throat, Denies vertigo, Denies voice changes Cardiovascular: Reports as per HPI Respiratory: Reports as per HPI Gastrointestinal: Reports as per HPI, Reports abdominal pain, Reports bloating, Reports change in bowel habits, Reports nausea Genitourinary: Reports as per HPI Menstruation: Reports as per HPI, Reports postmenopausal Musculoskeletal: Reports as per HPI, Denies arm numbness/tingling, Denies atrophy, Denies fractures, Denies frequent falls, Denies gait dysfunction, Den ies hot joints, Denies leg numbness/tingling, Denies limitation of motion, Denies loss of height, Denies low back pain, Denies morning stiffness, Denies muscle cramps, Denies muscle weakness, Denies myalgias, Denies neck pain, Denies neck stiffness, Denies prior amputations, Denies redness of joints, Denies shooting arm pain, Denies shooting leg pain Integumentary: Reports as per HPI Neurological: Reports as per HPI Psychiatric: Reports as per HPI Endocrine: Reports as per HPI Hematologic/Lymphatic: Reports as per HPI Allergic/Immunologic: Reports as per HPI Past Medical History Past Medical History: Cancer, CVA/TIA, Fibromyalgia, GERD/Reflux, Osteoarthritis (OA), Thyroid Disorder Additional Past Medical History / Comment(s): HYPOTHYROID, LT Breast CA. HX radiation, SEE DR HARRISON HISTORY AND PHYSICAL FOR CARDIAC HISTORY, POSSIBLE MIGRAINE HEADACHES History of Any Multi-Drug Resistant Organisms: None Reported Past Surgical History: Breast Surgery, Cholecystectomy, Hysterectomy, Pacemaker, Tubal Ligation Additional Past Surgical History / Comment(s): PARTIAL LT MASTECTOMY, LEAD WIRE REPLACED (FOR PACEMAKER), Past Anesthesia/Blood Transfusion Reactions: Motion Sickness Type of Cardiac Device: Permanent Pacemaker Device Placement Date:: 03/09/15 Past Psychological History: Anxiety Smoking Status: Current every day smoker Past Alcohol Use History: None Reported Past Drug Use History: None Reported - Past Family History Father Family Medical History: No Reported History Additional Family Medical History / Comment(s): Father is alive but she does not know his medical history. Mother Family Medical History: No Reported History Additional Family Medical History / Comment(s): Mother is alive at age 74 with no major medical problems. Brother(s) Family Medical History: No Reported History Additional Family Medical History / Comment(s): The patient has 1 brother with no major medical problems. Sister(s) Family Medical History: No Reported History Additional Family Medical History / Comment(s): Patient has one sister and she has irritable bowel syndrome. Daughter(s) Family Medical History: No Reported History Additional Family Medical History / Comment(s): Patient has one daughter with no major medical problems. Medications and Allergies Home Medications Medication Instructions Recorded Confirmed Type ALPRAZolam [Xanax] 1 mg PO TID PRN 02/10/17 12/30/20 History Cyclobenzaprine [Flexeril] 10 mg PO TID PRN 08/26/18 12/30/20 History HYDROcodone/APAP 7.5-325MG [[place] 1 tab PO TID PRN 08/26/18 12/30/20 History 7.5-325] SUMAtriptan succinate [Imitrex] 50 mg PO BID PRN 08/26/18 12/30/20 History Dicyclomine [Bentyl] 10 mg PO QID PRN 03/10/19 12/30/20 History Omeprazole [PriLOSEC] 20 mg PO BID PRN 03/10/19 12/30/20 History Ibuprofen [Motrin] 800 mg PO Q8H PRN 12/30/20 12/30/20 History predniSONE See Taper PO DIRECTED 12/30/20 12/30/20 History Allergies Allergy/AdvReac Type Severity Reaction Status Date / Time No Known Allergies Allergy Verified 12/30/20 12:24 Physical Exam Vitals: Vital Signs Temp Pulse Pulse Resp BP BP Pulse Ox 12/30/20 18:11 98.4 F 53 L 16 112/67 98 12/30/20 17:27 54 L 18 118/72 98 12/30/20 16:24 58 L 18 119/73 98 12/30/20 14:44 58 L 18 136/80 98 12/30/20 12:24 97.5 F L 102 H 18 122/67 100 Intake and Output 12/30/20 12/30/20 12/30/20 06:59 14:59 22:59 Other: Weight 54.431 kg Results CBC & Chem 7: 12/31/20 04:16 12/31/20 04:16 Labs: Abnormal Lab Results - Last 24 Hours (Table) 12/30/20 12/30/20 12/30/20 Range/Units 12:46 12:46 12:46 WBC 12.9 H (3.8-10.6) k/uL Neutrophils # 10.3 H (1.3-7.7) k/uL APTT 21.1 L (22.0-30.0) sec BUN (7-17) mg/dL Glucose (74-99) mg/dL AST (14-36) U/L ALT (4-34) U/L Urine pH 8.5 H (5.0-8.0) Ur Specific [place] 1.036 H (1.001-1.035) 12/30/20 Range/Units 12:46 WBC (3.8-10.6) k/uL Neutrophils # (1.3-7.7) k/uL APTT (22.0-30.0) sec BUN 23 H (7-17) mg/dL Glucose 120 H (74-99) mg/dL AST 46 H (14-36) U/L ALT 50 H (4-34) U/L Urine pH (5.0-8.0) Ur Specific [place] (1.001-1.035) Laboratory Results WBC 12.9 k/uL (3.8-10.6) H 12/30/20 12:46 RBC 4.43 m/uL (3.80-5.40) 12/30/20 12:46 Hgb 13.9 gm/dL (11.4-16.0) 12/30/20 12:46 Hct 41.3 % (34.0-46.0) 12/30/20 12:46 MCV 93.2 fL (80.0-100.0) 12/30/20 12:46 MCH 31.4 pg (25.0-35.0) 12/30/20 12:46 MCHC 33.7 g/dL (31.0-37.0) 12/30/20 12:46 RDW 13.0 % (11.5-15.5) 12/30/20 12:46 Plt Count 323 k/uL (150-450) 12/30/20 12:46 MPV 7.3 12/30/20 12:46 Neutrophils % 80 % 12/30/20 12:46 Lymphocytes % 14 % 12/30/20 12:46 Monocytes % 4 % 12/30/20 12:46 Eosinophils % 0 % 12/30/20 12:46 Basophils % 0 % 12/30/20 12:46 Neutrophils # 10.3 k/uL (1.3-7.7) H 12/30/20 12:46 Lymphocytes # 1.9 k/uL (1.0-4.8) 12/30/20 12:46 Monocytes # 0.5 k/uL (0-1.0) 12/30/20 12:46 Eosinophils # 0.1 k/uL (0-0.7) 12/30/20 12:46 Basophils # 0.0 k/uL (0-0.2) 12/30/20 12:46 PT 10.2 sec (9.0-12.0) 12/30/20 12:46 INR 0.9 (<1.2) 12/30/20 12:46 APTT 21.1 sec (22.0-30.0) L 12/30/20 12:46 Sodium 141 mmol/L (137-145) 12/30/20 12:46 Potassium 3.5 mmol/L (3.5-5.1) 12/30/20 12:46 Chloride 104 mmol/L (98-107) 12/30/20 12:46 Carbon Dioxide 27 mmol/L (22-30) 12/30/20 12:46 Anion Gap 10 mmol/L 12/30/20 12:46 BUN 23 mg/dL (7-17) H 12/30/20 12:46 Creatinine 0.64 mg/dL (0.52-1.04) 12/30/20 12:46 Est GFR (CKD-EPI)AfAm >90 (>60 ml/min/1.73 sqM) 12/30/20 12:46 Est GFR (CKD-EPI)NonAf >90 (>60 ml/min/1.73 sqM) 12/30/20 12:46 Glucose 120 mg/dL (74-99) H 12/30/20 12:46 Plasma Lactic Acid Tj 1.6 mmol/L (0.7-2.0) 12/30/20 12:46 Calcium 9.3 mg/dL (8.4-10.2) 12/30/20 12:46 Total Bilirubin 0.4 mg/dL (0.2-1.3) 12/30/20 12:46 AST 46 U/L (14-36) H 12/30/20 12:46 ALT 50 U/L (4-34) H 12/30/20 12:46 Alkaline Phosphatase 71 U/L (38-126) 12/30/20 12:46 Total Protein 6.8 g/dL (6.3-8.2) 12/30/20 12:46 Albumin 4.3 g/dL (3.5-5.0) 12/30/20 12:46 Amylase 50 U/L (30-110) 12/30/20 12:46 Lipase 24 U/L (23-300) 12/30/20 12:46 Urine Color Light Yellow 12/30/20 12:46 Urine Appearance Clear (Clear) 12/30/20 12:46 Urine pH 8.5 (5.0-8.0) H 12/30/20 12:46 Ur Specific [place] 1.036 (1.001-1.035) H 12/30/20 12:46 Urine Protein Negative (Negative) 12/30/20 12:46 Urine Glucose (UA) Negative (Negative) 12/30/20 12:46 Urine Ketones Negative (Negative) 12/30/20 12:46 Urine Blood Negative (Negative) 12/30/20 12:46 Urine Nitrite Negative (Negative) 12/30/20 12:46 Urine Bilirubin Negative (Negative) 12/30/20 12:46 Urine Urobilinogen <2.0 mg/dL (<2.0) 12/30/20 12:46 Ur Leukocyte Esterase Negative (Negative) 12/30/20 12:46 Assessment and Plan Plan: 1. Abdominal pain, generalized, with CAT scan that is nonspecific, these occurs at least 2 times per month, however this one of her worst symptoms. She is on Bentyl, when necessary, patient would have stool cultures to look for Campylobacter enterocolitis, and C. diff colitis. Patient has 3 liquid stools, from the emergency room to the floor 2. Distal esophageal wall thickening, mild, could be related to under distention, against other pathology. OP workup to include EGD check for celiac panel 3. Recurrent abdominal pain and cramps, underlying microscopic colitis, against inflammatory bowel disease cannot be ruled out, she needs to seek a cytology as an outpatient, I don't have any gastroenterology physician in the facility at this time 4. Diarrhea, suspect enterocolitis, possible Campylobacter against C. diff, obtain stools for culture 5 abnormal x-ray imaging, possible narrowing of the ureter, check for renal ultrasound, urine shows no hematuria microscopic 6. SIRS, with leukocytosis, most likely related to enterocolitis lipase is normal 7. Elevation of transaminases, check for hepatitis panel GI prophylaxis DVT prophylaxis Expected length of stay, 2 nights
--- NOTE | 2020-12-31 16:03 | P.PN ---
Subjective Progress Note Date: 12/31/20 This is a 55-year-old pleasant lady, patient of Dr. Vera. With known history of ductal carcinoma left breast, status post lumpectomy regurgitation, sick sinus syndrome, requiring pacemaker February 2015, thyroiditis, chronic headaches under the care of Dr. Lyons. Patient was admitted emergency room secondary to abdominal pain, vomiting and diarrhea. The symptoms are for the past 9 hours, patient apparently has similar symptoms like these on a monthly basis, prior history of cholecystectomy. Not much information to me Friday today, as the patient's very miserable, the mother is at the bedside, for which we've gotten some more information, however this has been one of the worst symptoms that she has with the belly cramps, diarrhea, no fever, and generalized abdominal pain. Apparently she gets this at least 2 times per month, no sick contacts at home, no fever no chills. She sees Dr. Conner, no proper diagnosis in the past, patient does not recollect any colonoscopy 12/31: Patient is a much better today, abdominal cramps is much better, no diarrhea since yesterday, patient cannot even recollect what happened yesterday, she is much coherent today, having clear liquid diet, and is tolerated today, we'll advance to full liquid diet today, hemoglobin is low at 11.7, most likely volitional, no blood in the stool, check for Hemoccult, no stool since last night. No specimen collected for C. diff or enteropathogens. Continue IV Zithromax IV Flagyl, patient seems to be improving Review of Systems Constitutional: Reports as per HPI, Denies anorexia, Denies chills, Denies chronic headaches, Denies chronic pain, Denies daytime sleepiness, Denies fatigue, Denies fever, Denies lethargy, Denies malaise, Denies night sweats, Denies poor appetite, Denies sweats, Denies weakness, Denies weight gain, Denies weight loss Ears, nose, mouth and throat: Reports as per HPI, Denies ant. neck pain, Denies bleeding gums, Denies dental pain, Denies dysphagia, Denies epistaxis, Denies headache, Denies hoarseness, Denies mouth pain, Denies nasal congestion, Denies nasal discharge, Denies neck fullness/pressure, Denies neck lump, Denies nose pain, Denies odynophagia, Denies post-nasal drip, Denies sinus pain, Denies si nus pressure, Denies swelling in mouth, Denies swelling in throat, Denies sore throat, Denies vertigo, Denies voice changes Cardiovascular: Reports as per HPI Respiratory: Reports as per HPI Gastrointestinal: Reports as per HPI, Reports abdominal pain, Reports bloating, Reports change in bowel habits, Reports nausea Genitourinary: Reports as per HPI Menstruation: Reports as per HPI, Reports postmenopausal Musculoskeletal: Reports as per HPI, Denies arm numbness/tingling, Denies atrophy, Denies fractures, Denies frequent falls, Denies gait dysfunction, Denies hot joints, Denies leg numbness/tingling, Denies limitation of motion, Denies loss of height, Denies low back pain, Denies morning stiffness, Denies muscle cramps, Denies muscle weakness, Denies myalgias, Denies neck pain, Denies neck stiffness, Denies prior amputations, Denies redness of joints, Denies shooting arm pain, Denies shooting leg pain Integumentary: Reports as per HPI Neurological: Reports as per HPI Psychiatric: Reports as per HPI Endocrine: Reports as per HPI Hematologic/Lymphatic: Reports as per HPI Allergic/Immunologic: Reports as per HPI Objective - Vital Signs Vital signs: Vital Signs Temp 98.2 F 12/31/20 07:15 Pulse 57 L 12/31/20 07:15 Resp 16 12/31/20 07:15 BP 96/63 12/31/20 07:15 Pulse Ox 98 12/31/20 07:15 Intake & Output 12/30/20 12/31/20 12/31/20 18:59 06:59 18:59 Intake Total 120 Balance 120 Weight 54.431 kg Intake: Oral 120 Other: # Voids 1 1 - Constitutional General appearance: Present: cooperative, no acute distress - EENT Eyes: Present: anicteric sclerae, EOMI, PERRLA, dentition normal, normal appearance - Neck Neck: Present: normal ROM - Respiratory Respiratory: bilateral: CTA, negative: diminished, dullness, rales - Cardiovascular Rhythm: regular - Gastrointestinal General gastrointestinal: Present: normal bowel sounds, tenderness - Integumentary Integumentary: Present: decreased turgor, normal - Neurologic Neurologic: Present: CNII-XII intact - Musculoskeletal Musculoskeletal: Present: gait normal, strength equal bilaterally - Psychiatric Psychiatric: Present: A&O x's 3, intact judgment & insight - Labs CBC & Chem 7: 12/31/20 04:16 12/31/20 04:16 Labs: Abnormal Lab Results - Last 24 Hours (Table) 12/30/20 12/31/20 12/31/20 Range/Units 12:46 04:16 04:16 RBC 3.88 L (4.10-5.20) X 10*6/uL Hgb 11.7 L (12.0-15.0) g/dL Hct 35.6 L (37.2-46.3) % Eosinophils # 0.01 L (0.04-0.35) X 10*3/uL Sodium 136 L (137-145) mmol/L Potassium 3.4 L (3.5-5.1) mmol/L Glucose 105 H (74-99) mg/dL Calcium 8.2 L (8.4-10.2) mg/dL ALT 40 H (4-34) U/L Total Protein 5.8 L (6.3-8.2) g/dL Albumin 3.4 L (3.5-5.0) g/dL Urine pH 8.5 H (5.0-8.0) Ur Specific [place] 1.036 H (1.001-1.035) Assessment and Plan Plan: 1. Abdominal pain, generalized, with CAT scan that is nonspecific, these occurs at least 2 times per month, however this one of her worst symptoms. She is on Bentyl, when necessary, patient would have stool cultures to look for Campylobacter enterocolitis, and C. diff colitis. Patient has 3 liquid stools, from the emergency room to the floor 2. Distal esophageal wall thickening, mild, could be related to under distention, against other pathology. OP workup to include EGD check for celiac panel 3. Recurrent abdominal pain and cramps, underlying microscopic colitis, against inflammatory bowel disease cannot be ruled out, she needs to seek a cytology as an outpatient, I don't have any gastroenterology physician in the facility at this time 4. Diarrhea, suspect enterocolitis, possible Campylobacter against C. diff, obtain stools for culture 5 abnormal x-ray imaging, possible narrowing of the ureter, check for renal ultrasound, urine shows no hematuria microscopic 6. Hypopotassemia, or hypokalemia, potassium supplementation orally 1 7. Dilutional anemia, hemoglobin at 11.7, previous of 13.9, check for iron studies 8. SIRS, with leukocytosis, most likely related to enterocolitis lipase is normal 9. Elevation of transaminases, check for hepatitis panel a D&C GI prophylaxis DVT prophylaxis Expected length of stay, 2 nights
[2020-12-31] MEDS: AZITHROMYCIN 500 MG in SODIUM CHLORIDE 0.9% 250 ML IVPB SCH (19:37)
[2021-01-01] MEDS: CYCLOBENZAPRINE 10 MG TAB PO PRN (01:15)
[2021-01-01] MEDS: metroNIDAZOLE-NS PMX 500 MG in SALINE 1 100ML.BAG IVPB SCH ×2 (03:39→19:05)
[2021-01-01] MEDS: HYDROcodone/APAP 7.5-325MG 1 EACH TAB PO PRN ×2 (07:22→15:11)
[2021-01-01] MEDS ORDERED: SUMAtriptan succinate 50 MG TAB PO PRN (07:43)
[2021-01-01] MEDS: PANTOPRAZOLE 40 MG/10 ML VIAL IVP SCH ×2 (08:30→20:31)
[2021-01-01 08:52] LABS: Basophils # (A) 0.07 X 10*3/uL (0.00-0.10); Basophils % (A) 1.1 %; Eosinophils # (A) 0.09 X 10*3/uL (0.04-0.35); Eosinophils % (A) 1.4 %; HGB 11.3 g/dL (12.0-15.0); Lymphocytes # (A) 2.48 X 10*3/uL (0.90-5.00); Lymphocytes % (A) 37.6 %; MCH 31.2 pg (27.0-32.0); MCHC 33.2 g/dL (32.0-37.0); MCV 93.9 fL (80.0-97.0); Mean Platelet Volume 10.6 fL (9.5-12.2); Monocytes # (A) 0.54 X 10*3/uL (0.20-1.00); Monocytes % (A) 8.2 %; Neutrophils % (A) 51.5 %; Platelet Count 233 X 10*3/uL (140-440); RBC 3.62 X 10*6/uL (4.10-5.20); RDW 12.2 % (11.5-14.5); WBC 6.59 X 10*3/uL (4.50-10.00)
[2021-01-01 09:08] LABS: % Iron Saturation 15.49 (12.00-45.00); African American GFR (CKD) 118.1 (60.0-200.0); BUN/Creat Ratio 21.67 Ratio (12.00-20.00); C Reactive Protein <0.4 mg/dL (0.0-0.8); Calcium 7.7 mg/dL (8.7-10.3); Carbon Dioxide 23.8 mmol/L (21.6-31.8); Chloride 111 mmol/L (96-109); Glucose 87 mg/dL (70-110); Iron 46 ug/dL (50-170); Non-African American GFR(CKD) 101.9 (60.0-200.0); Potassium 3.8 mmol/L (3.5-5.5); Sodium 140 mmol/L (135-145); Total Iron Binding Capacity 297 ug/dL (228-460)
--- NOTE | 2021-01-01 13:17 | P.PN ---
Subjective Progress Note Date: 01/01/21 This is a 55-year-old pleasant lady, patient of Dr. Vera. With known history of ductal carcinoma left breast, status post lumpectomy regurgitation, sick sinus syndrome, requiring pacemaker February 2015, thyroiditis, chronic headaches under the care of Dr. Lyons. Patient was admitted emergency room secondary to abdominal pain, vomiting and diarrhea. The symptoms are for the past 9 hours, patient apparently has similar symptoms like these on a monthly basis, prior history of cholecystectomy. Not much information to me Friday today, as the patient's very miserable, the mother is at the bedside, for which we've gotten some more information, however this has been one of the worst symptoms that she has with the belly cramps, diarrhea, no fever, and generalized abdominal pain. Apparently she gets this at least 2 times per month, no sick contacts at home, no fever no chills. She sees Dr. Conner, no proper diagnosis in the past, patient does not recollect any colonoscopy 12/31: Patient is a much better today, abdominal cramps is much better, no diarrhea since yesterday, patient cannot even recollect what happened yesterday, she is much coherent today, having clear liquid diet, and is tolerated today, we'll advance to full liquid diet today, hemoglobin is low at 11.7, most likely volitional, no blood in the stool, check for Hemoccult, no stool since last night. No specimen collected for C. diff or enteropathogens. Continue IV Zithromax IV Flagyl, patient seems to be improving 01/01: Patient has no cramps today, tolerating full liquid diet, no bowel movement since admission, unable to collect stool specimen, patient's diet will be advanced today, we will switch to regular diet, and switch oral Zithromax and oral Flagyl today. Discontinue IV Zithromax IV Flagyl. Still suspect enterocolitis, improving, no fever no chills, expect discharge in the next 24 hours Review of Systems Constitutional: Reports as per HPI, Denies anorexia, Denies chills, Denies chronic headaches, Denies chronic pain, Denies daytime sleepiness, Denies fatigue, Denies fever, Denies lethargy, Denies malaise, Denies night sweats, Denies poor appetite, Denies sweats, Denies weakness, Denies weight gain, Denies weight loss Ears, nose, mouth and throat: Reports as per HPI, Denies ant. neck pain, Denies bleeding gums, Denies dental pain, Denies dysphagia, Denies epistaxis, Denies headache, Denies hoarseness, Denies mouth pain, Denies nasal congestion, Denies nasal discharge, Denies neck fullness/pressure, Denies neck lump, Denies nose pain, Denies odynophagia, Denies post-nasal drip, Denies sinus pain, Denies sinus pressure, Denies swelling in mouth, Denies swelling in throat, Denies sore throat, Denies vertigo, Denies voice changes Cardiovascular: Reports as per HPI Respiratory: Reports as per HPI Gastrointestinal: Reports as per HPI, Reports abdominal pain, Reports bloating, Reports change in bowel habits, Reports nausea Genitourinary: Reports as per HPI Menstruation: Reports as per HPI, Reports postmenopausal Musculoskeletal: Reports as per HPI, Denies arm numbness/tingling, Denies atrophy, Denies fractures, Denies frequent falls, Denies gait dysfunction, De nies hot joints, Denies leg numbness/tingling, Denies limitation of motion, Denies loss of height, Denies low back pain, Denies morning stiffness, Denies muscle cramps, Denies muscle weakness, Denies myalgias, Denies neck pain, Denies neck stiffness, Denies prior amputations, Denies redness of joints, Denies shooting arm pain, Denies shooting leg pain Integumentary: Reports as per HPI Neurological: Reports as per HPI Psychiatric: Reports as per HPI Endocrine: Reports as per HPI Hematologic/Lymphatic: Reports as per HPI Allergic/Immunologic: Reports as per HPI Objective - Vital Signs Vital signs: Vital Signs Temp 98.1 F 01/01/21 07:00 Pulse 52 L 01/01/21 07:00 Resp 18 01/01/21 07:00 BP 100/64 01/01/21 07:00 Pulse Ox 100 01/01/21 07:00 Intake & Output 12/31/20 01/01/21 01/01/21 18:59 06:59 18:59 Intake Total 360 Balance 360 Intake: Oral 360 Other: # Voids 2 2 - Constitutional General appearance: Present: cooperative, no acute distress - Neck Neck: Present: normal ROM, other - Respiratory Respiratory: bilateral: CTA, negative: diminished, dullness, rales - Cardiovascular Rhythm: regular Heart sounds: normal: S1, S2 - Gastrointestinal General gastrointestinal: Present: normal bowel sounds, soft, tenderness (None) - Neurologic Neurologic: Present: CNII-XII intact - Musculoskeletal Musculoskeletal: Present: gait normal, strength equal bilaterally - Psychiatric Psychiatric: Present: A&O x's 3, appropriate affect, intact judgment & insight - Labs CBC & Chem 7: 01/01/21 04:06 01/01/21 04:06 Labs: Abnormal Lab Results - Last 24 Hours (Table) 01/01/21 01/01/21 Range/Units 04:06 04:06 RBC 3.62 L (4.10-5.20) X 10*6/uL Hgb 11.3 L (12.0-15.0) g/dL Hct 34.0 L (37.2-46.3) % Chloride 111 H (96-109) mmol/L BUN/Creatinine Ratio 21.67 H (12.00-20.00) Ratio Calcium 7.7 L (8.7-10.3) mg/dL Iron 46 L (50-170) ug/dL Assessment and Plan Plan: 1. Abdominal pain, generalized, with CAT scan that is nonspecific, these occurs at least 2 times per month, however this one of her worst symptoms. She is on Bentyl, when necessary, patient would have stool cultures to look for Campylobacter enterocolitis, and C. diff colitis. Patient has 3 liquid stools, from the emergency room to the floor. 2. Distal esophageal wall thickening, mild, could be related to under distention, against other pathology. OP workup to include EGD check for celiac panel 3. Recurrent abdominal pain and cramps, underlying microscopic colitis, against inflammatory bowel disease cannot be ruled out, she needs to seek a cytology as an outpatient, I don't have any gastroenterology physician in the facility at this time 4. Diarrhea, suspect enterocolitis, possible Campylobacter against C. diff, obtain stools for culture unable to send stool specimen, no bowel movement since admission continue on Zithromax oral Flagyl oral, 5 abnormal x-ray imaging, possible narrowing of the ureter, check for renal ultrasound, urine shows no hematuria microscopic 6. Hypopotassemia, or hypokalemia, potassium supplementation orally 1 7. Dilutional anemia, hemoglobin at 11.7, previous of 13.9, check for iron studies 8. SIRS, with leukocytosis, most likely related to enterocolitis lipase is normal 9. Elevation of transaminases, check for hepatitis panel a D&C Sleep disturbance, start melatonin at bedtime, has migraines GI prophylaxis DVT prophylaxis Expected length of stay, 2 nights
[2021-01-01 14:06] LABS: Hepatitis A Antibody IgM Non-Reactive (Non-Reactive); Hepatitis B Core IgM Non-Reactive (Non-Reactive); Hepatitis B Surface Antigen Non-Reactive (Non-Reactive); Hepatitis C IgG Antibody Non-Reactive (Non-Reactive)
[2021-01-01 14:31] LABS: Erythrocyte Sedimentation Rate 9 mm/Hr (0-30)
[2021-01-01] MEDS: metroNIDAZOLE 500 MG TAB PO SCH ×2 (16:25→20:31)
[2021-01-01] MEDS: SODIUM CHLORIDE 0.9% 1,000 ML IV SCH ×2 (19:04→23:30)
[2021-01-01] MEDS ORDERED: MELATONIN 3 MG TABLET PO SCH (21:00)
[2021-01-02] MEDS: CYCLOBENZAPRINE 10 MG TAB PO PRN ×2 (01:13→07:48)
[2021-01-02] MEDS: PANTOPRAZOLE 40 MG/10 ML VIAL IVP SCH (07:45)
[2021-01-02] MEDS: HYDROcodone/APAP 7.5-325MG 1 EACH TAB PO PRN (07:46)
[2021-01-02] MEDS: metroNIDAZOLE 500 MG TAB PO SCH (07:51)
[2021-01-02 08:28] VITALS: BP 106/64; RESP 17; TEMP 98.2
[2021-01-02] MEDS ORDERED: AZITHROMYCIN 500 MG TAB PO SCH (09:00)
--- NOTE | 2021-01-02 09:34 | P.DS ---
Providers Date of admission: 12/30/20 16:37 Expected date of discharge: 01/02/21 Attending physician: Eri Kingsley Primary care physician: [facility] Course: This is a 55-year-old pleasant lady, patient of Dr. Vera. With known history of ductal carcinoma left breast, status post lumpectomy regurgitation, sick sinus syndrome, requiring pacemaker February 2015, thyroiditis, chronic headaches under the care of Dr. Lyons. Patient was admitted emergency room secondary to abdominal pain, vomiting and diarrhea. The symptoms are for the past 9 hours, patient apparently has similar symptoms like these on a monthly b asis, prior history of cholecystectomy. Not much information to me Friday today, as the patient's very miserable, the mother is at the bedside, for which we've gotten some more information, however this has been one of the worst symptoms that she has with the belly cramps, diarrhea, no fever, and generalized abdominal pain. Apparently she gets this at least 2 times per month, no sick contacts at home, no fever no chills. She sees Dr. Conner, no proper diagnosis in the past, patient does not recollect any colonoscopy 12/31: Patient is a much better today, abdominal cramps is much better, no d iarrhea since yesterday, patient cannot even recollect what happened yesterday, she is much coherent today, having clear liquid diet, and is tolerated today, we'll advance to full liquid diet today, hemoglobin is low at 11.7, most likely volitional, no blood in the stool, check for Hemoccult, no stool since last night. No specimen collected for C. diff or enteropathogens. Continue IV Zithromax IV Flagyl, patient seems to be improving 01/01: Patient has no cramps today, tolerating full liquid diet, no bowel movement since admission, unable to collect stool specimen, patient's diet will be adva nced today, we will switch to regular diet, and switch oral Zithromax and oral Flagyl today. Discontinue IV Zithromax IV Flagyl. Still suspect enterocolitis, improving, no fever no chills, expect discharge in the next 24 hours 01/02: Acute hepatitis panel was negative. C-reactive protein was less than 0.4. Iron 46, TIBC 297, iron saturation 15.4. The patient's symptoms are stable and she will be discharged home today in stable condition. DISCHARGE DIAGNOSES 1. Abdominal pain, generalized, with CAT scan that is nonspecific, these occurs at least 2 times per month 2. Distal esophageal wall thickening, mild, could be related to under distention, against other pathology. OP workup to include EGD check for celiac panel 3. Recurrent abdominal pain and cramps, underlying microscopic colitis, against inflammatory bowel disease cannot be ruled out, she needs to seek a cytology as an outpatient 4. Diarrhea, suspect enterocolitis, possible Campylobacter 5. Abnormal x-ray imaging, possible narrowing of the ureter 6. Hypokalemia 7. Dilutional anemia 8. SIRS, with leukocytosis, most likely related to enterocolitis 9. Elevation of transaminases Sleep disturbance DISCHARGE PLAN HOME Impression and plan of care have been directed as dictated by the signing physician. Helene Villa nurse practitioner acting as scribe for signing physician. Patient Condition at Discharge: Good Plan - Discharge Summary Discharge Rx Participant: No New Discharge Prescriptions: New Ondansetron [Zofran] 4 mg PO Q8HR PRN #20 tab PRN Reason: Nausea metroNIDAZOLE [Flagyl] 500 mg PO TID #12 tab Azithromycin [Zithromax] 500 mg PO DAILY #4 tab Continue ALPRAZolam [Xanax] 1 mg PO TID PRN PRN Reason: Anxiety Cyclobenzaprine [Flexeril] 10 mg PO TID PRN PRN Reason: Muscle Spasm HYDROcodone/APAP 7.5-325MG [[place]ixie 7.5-325] 1 tab PO TID PRN PRN Reason: Pain SUMAtriptan succinate [Imitrex] 50 mg PO BID PRN PRN Reason: Migraine Headache Dicyclomine [Bentyl] 10 mg PO QID PRN PRN Reason: Gi Upset Omeprazole [PriLOSEC] 20 mg PO BID PRN PRN Reason: GERD Ibuprofen [Motrin] 800 mg PO Q8H PRN PRN Reason: Pain Discontinued predniSONE See Taper PO DIRECTED Discharge Medication List ALPRAZolam [Xanax] 1 mg PO TID PRN 02/10/17 [History] Cyclobenzaprine [Flexeril] 10 mg PO TID PRN 08/26/18 [History] HYDROcodone/APAP 7.5-325MG [[place]ixie 7.5-325] 1 tab PO TID PRN 08/26/18 [History] SUMAtriptan succinate [Imitrex] 50 mg PO BID PRN 08/26/18 [History] Dicyclomine [Bentyl] 10 mg PO QID PRN 03/10/19 [History] Omeprazole [PriLOSEC] 20 mg PO BID PRN 03/10/19 [History] Ibuprofen [Motrin] 800 mg PO Q8H PRN 12/30/20 [History] Azithromycin [Zithromax] 500 mg PO DAILY #4 tab 01/02/21 [Rx] Ondansetron [Zofran] 4 mg PO Q8HR PRN #20 tab 01/02/21 [Rx] metroNIDAZOLE [Flagyl] 500 mg PO TID #12 tab 01/02/21 [Rx] Follow up Appointment(s)/Referral(s): Andreia Conner MD [STAFF PHYSICIAN] - 1 Week [place] Vera DO [Primary Care Provider] - 1 Week Activity/Diet/Wound Care/Special Instructions: activity as tolerated diet as tolerated Discharge Disposition: HOME SELF-CARE
[2021-01-02 10:02] VITALS: PULSE 53
[2021-01-02 18:22] LABS: Gliadin AB IgA, Deaminated NEGATIVE (NEGATIVE); Gliadin AB IgA, Unit 0.8 U/mL; Gliadin AB IgG, Deaminated NEGATIVE (NEGATIVE)
== END 2021-01-02 10:31 | disposition home or self-care (01) ==
LOC: EC 12:02 → 6NMEDSUR 16:37
PROVIDERS: ADMIT Family Medicine; ATTEND Family Medicine
DX: R10.84 Generalized abdominal pain (principal); R25.2 Cramp and spasm; R19.7 Diarrhea, unspecified; R11.2 Nausea with vomiting, unspecified; K22.9 Disease of esophagus, unspecified; R93.89 Abnormal findings on diagnostic imaging of other specified body structures; E87.6 Hypokalemia; D64.9 Anemia, unspecified; R65.10 Systemic inflammatory response syndrome (SIRS) of non-infectious origin without acute organ dysfunction; D72.829 Elevated white blood cell count, unspecified; R74.01 Elevation of levels of liver transaminase levels; G47.9 Sleep disorder, unspecified; I49.5 Sick sinus syndrome; R51.9 Headache, unspecified; M79.7 Fibromyalgia; K21.9 Gastro-esophageal reflux disease without esophagitis; M19.90 Unspecified osteoarthritis, unspecified site; E03.9 Hypothyroidism, unspecified; F17.200 Nicotine dependence, unspecified, uncomplicated; F41.9 Anxiety disorder, unspecified; Z79.899 Other long term (current) drug therapy; Z85.3 Personal history of malignant neoplasm of breast; Z95.0 Presence of cardiac pacemaker; Z86.73 Personal history of transient ischemic attack (TIA), and cerebral infarction without residual deficits; Z92.3 Personal history of irradiation; Z90.710 Acquired absence of both cervix and uterus; Z90.12 Acquired absence of left breast and nipple; Z90.49 Acquired absence of other specified parts of digestive tract; Z83.79 Family history of other diseases of the digestive system
CPT/HCPCS: 96376 ×5; 96361 ×4; 96365; 96366 ×3; 96367; 96375; 99285; 36415; 80053 ×2; 80048; 80074; 85652; 82150; 83540; 83550; 83605; 83690; 83735; 85025 ×3; 85610; 85730; 86140; 81003; 83516 ×4; 74018; 74177; G0378 ×4; J2270 ×2; J2765; J2405; J0456 ×2; C9113 ×4; Q9967

== ENCOUNTER 2021-03-07 07:02 | Day surgery (SDC) | payer OTHER ==
[2021-03-05 13:54] VITALS: BMI 19.9
[~2021-03-07 07:02] MED LIST changes: +LACTATED RINGERS 1,000 ML IV SCH; +LIDOCAINE 1% (10MG/ML) FOR IV START INTRADERMA PRN; -SODIUM CHLORIDE 0.9% 500 ML 500 ML in EMPTY BAG 1 BAG IV PRN; -ZOLEDRONIC ACID 5 MG in SODIUM CHLORIDE 0.9% 100 ML IV NR
[2021-03-07 07:28] VITALS: TEMP 97
[2021-03-07] MEDS ORDERED: LIDOCAINE 1% INJ 10MG/ML (20 ML MDV) ONE (08:17)
[2021-03-07] MEDS ORDERED: PROPOFOL 10 MG/ML 20 ML VIAL IV ONE (08:17)
--- NOTE | 2021-03-07 08:40 | P.PCN ---
Date of Procedure: 03/07/21 Procedure(s) Performed: Brief history: Patient is a pleasant 55-year-old white female scheduled for an elective upper endoscopy as well as colonoscopy as a part of evaluation of GERD and recent episode of abdominal pain associated with diarrhea for which she was hospitalized for 5 days in December 2020. She was treated with antibiotics and the symptoms gradually improved. She still continues to have lower abdominal pain and intermittent diarrhea. Procedure performed: Esophagogastroduodenoscopy with biopsy Colonoscopy Preoperative diagnosis: GERD Lower abdominal pain/intermittent diarrhea Anesthesia: MAC Procedure: After informed consent was obtained from the patient was brought into the endo scopy unit and IV sedation was administered by anesthesia under continuous monitoring. Initially upper endoscopy was done. The Olympus GF 160 video endoscope was inserted inserted into the mouth and esophagus intubated without any difficulty and was gradually advanced into the stomach and duodenum and carefully examined. The bulb and second part of the duodenum appeared normal. The scope was then withdrawn into the stomach adequately insufflated with air and upon careful examination the antrum had mild gastritis and biopsies were done from this area. The body, cardia and fundus appeared normal. The scope was then withdrawn into the esophagus. The GE junction was located at 40 cm to the incisors. There were 2 superficial erosions consistent with LA grade a reflux esophagitis. Rest of the esophagus appeared normal. Patient tolerated the procedure well. At this time the patient continued to remain sedation. Initial digital rectal examination was normal. Olympus CF 160 video colonoscope was then inserted into the rectum and gradually advanced to the cecum without any difficulty. Careful examination was performed as the scope was gradually being withdrawn. The prep was fair.. The cecum, ascending colon, transverse colon, descending colon, sigmoid colon and rectum appeared normal. Retroflexion was performed in the rectum and no lesions were noted. Patient tolerated the procedure well. Impression: 1. Upper endoscopy revealed mild antral gastritis and LA grade a reflux esophagitis 2. Colonoscopy was within normal limits with no evidence of colitis or colorectal neoplasia Recommendations: Findings of this examination were discussed with the patient as well as her family. She was advised to continue with omeprazole 20 mg daily and follow antireflux measures. She can have a repeat screening colonoscopy in 10 years
[2021-03-07 09:00] VITALS: BP 103/72; PULSE 68; RESP 16
== END 2021-03-07 09:18 | disposition home or self-care (01) ==
LOC: ORWHC2ENDO 07:02
PROVIDERS: ATTEND Internal Medicine Gastroenterology
DX: K21.00 Gastro-esophageal reflux disease with esophagitis, without bleeding (principal)
CPT/HCPCS: 43239; J2001; J2704; 88305

== ENCOUNTER → 2021-12-12 | Outpatient (CLI) | payer OTHER ==
--- NOTE | 2021-12-12 18:43 | XR ---
EXAMINATION TYPE: Right rib series, 4 views DATE OF EXAM: 12/12/2021 COMPARISON: 07/03/2019 HISTORY: 55-year-old female R07.82 FINDINGS: Right atrial and right ventricular leads are noted. Right hemithorax shows no consolidation , pneumothorax, or pleural effusion. No displaced rib fracture is seen. IMPRESSION: No displaced right rib fracture.
== END | disposition home or self-care (01) ==
LOC: RADXRMAIN 13:57
PROVIDERS: ATTEND Family Medicine
DX: R07.82 Intercostal pain (principal)

== ENCOUNTER 2022-03-23 18:46 | Emergency (ER) | payer OTHER ==
[2022-03-23] MEDS ORDERED: KETOROLAC 15 MG/ML 1 ML VIAL IVP STA (19:06)
--- NOTE | 2022-03-23 19:28 | ED ---
Fall HPI - General Chief Complaint: Fall Stated Complaint: R ankle injury Time Seen by Provider: 03/23/22 18:50 Source: patient, EMS - History of Present Illness Initial Comments: 56-year-old female who presents by EMS after suffering a fall 3 and finished bathroom floor she complains or right ankle pain this was wrapped in by EMS personnel. Also complains right hip and low back pain no head or neck pain no loss of function to her upper or lower extremities is very anxious upon arrival. She was noted be hyperventilating. MD Complaint: fall - Related Data Home Medications Medication Instructions Recorded Confirmed ALPRAZolam [Xanax] 1 mg PO BID PRN 02/10/17 03/23/22 HYDROcodone/APAP 7.5-325MG [[place] 1 tab PO TID PRN 08/26/18 03/23/22 7.5-325] SUMAtriptan succinate [Imitrex] 50 mg PO BID PRN 08/26/18 03/23/22 Omeprazole [PriLOSEC] 20 mg PO BID PRN 03/10/19 03/23/22 Cyclobenzaprine [Flexeril] 5 mg PO TID PRN 03/23/22 03/23/22 hydrOXYzine HCL [Atarax] 50 mg PO BID PRN 03/23/22 03/23/22 Allergies Allergy/AdvReac Type Severity Reaction Status Date / Time bupropion [From Wellbutrin] Allergy Confusion Verified 03/23/22 19:06 pregabalin [From Lyrica] Allergy Confusion Verified 03/23/22 19:06 Review of Systems ROS Statement: Those systems with pertinent positive or pertinent negative responses have been documented in the HPI. ROS Other: All systems not noted in ROS Statement are negative. Past Medical History Past Medical History: Cancer, CVA/TIA, Fibromyalgia, GERD/Reflux, Osteoarthritis (OA), Thyroid Disorder Additional Past Medical History / Comment(s): HYPOTHYROID, LT Breast CA- HX radiation, POSSIBLE MIGRAINE HEADACHES ,TIA . PFO CLOSURE -(HOLE IN HEART CLOSED ) History of Any Multi-Drug Resistant Organisms: None Reported Past Surgical History: Breast Surgery, Cholecystectomy, Hysterectomy, Pacemaker, Tubal Ligation Additional Past Surgical History / Comment(s): PARTIAL LT MASTECTOMY, LEAD WIRE REPLACED (FOR PACEMAKER), Past Anesthesia/Blood Transfusion Reactions: Motion Sickness Type of Cardiac Device: Permanent Pacemaker Device Placement Date:: 03/09/15 Past Psychological History: ADD/ADHD, Anxiety Smoking Status: Current every day smoker - Past Family History Father Family Medical History: No Reported History Additional Family Medical History / Comment(s): Father is alive but she does not know his medical history. Mother Family Medical History: No Reported History Additional Family Medical History / Comment(s): Mother is alive at age 74 with no major medical problems. Brother(s) Family Medical History: No Reported History Additional Family Medical History / Comment(s): The patient has 1 brother with no major medical problems. Sister(s) Family Medical History: No Reported History Additional Family Medical History / Comment(s): Patient has one sister and she has irritable bowel syndrome. Daughter(s) Family Medical History: No Reported History Additional Family Medical History / Comment(s): Patient has one daughter with no major medical problems. General Exam Limitations: physical limitation General appearance: alert, anxious, in distress Head exam: Present: atraumatic, normocephalic, normal inspection Eye exam: Present: normal appearance, PERRL, EOMI. Absent: scleral icterus, conjunctival injection, periorbital swelling ENT exam: Present: normal exam, mucous membranes moist Neck exam: Present: normal inspection. Absent: tenderness, meningismus, lymphadenopathy Respiratory exam: Present: normal lung sounds bilaterally, chest wall tenderness (Right-sided rib pain no step-off or crepitation). Absent: respiratory distress, wheezes, rales, rhonchi, stridor Cardiovascular Exam: Present: regular rate, normal rhythm, normal heart sounds. Absent: systolic murmur, diastolic murmur, rubs, gallop, clicks GI/Abdominal exam: Present: soft, normal bowel sounds. Absent: distended, tenderness, guarding, rebound, rigid Extremities exam: Present: tenderness (She'll the right ankle and right hip no rotation no step-off or crepitation), normal capillary refill. Absent: full ROM, pedal edema, joint swelling, calf tenderness Back exam: Present: normal inspection, CVA tenderness (R) (Step-off or crepitati on) Neurological exam: Present: alert, oriented X3, CN II-XII intact Psychiatric exam: Present: normal affect, normal mood Skin exam: Present: warm, dry, intact, normal color. Absent: rash Course Vital Signs 03/23/22 03/23/22 03/23/22 18:56 19:56 20:19 Temperature 98.4 F 98.6 F Pulse Rate 82 70 78 Respiratory 18 18 18 Rate Blood Pressure 100/57 100/73 103/81 O2 Sat by Pulse 99 100 99 Oximetry Medical Decision Making - Medical Decision Making I did discuss the findings with the patient she'll be placed in a stirrup splint she is a follow-up with her doctor I will give her a referral to orthopedics ice elevation and Tylenol or Motrin for pain - Radiology Data Radiology results: image reviewed (I did review the x-rays were performed rib x- rays and chest unremarkable the lumbar spine and pelvis as well as right hip unremarkable there is evidence of soft tissue swelling and a chip fracture of the distal right fibula.) Disposition Clinical Impression: Fall, Closed right ankle fracture, Right ankle sprain Disposition: HOME SELF-CARE Condition: Good Instructions (If sedation given, give patient instructions): Ankle Sprain (ED), Ankle Fracture (ED) Additional Instructions: Ice 24-48 hours with elevation of the right lower extremity [id number] pain medication for pain limit weightbearing use the cane that you have at home when necessary follow-up with her doctor. Orthopedics is given also for follow- up if needed Is patient prescribed a controlled substance at d/c from ED?: No Referrals: London Vera DO [Primary Care Provider] - 1-2 days Blayne Hoyt MD [STAFF PHYSICIAN] - 1-2 days Decision Date: 03/23/22 Decision Time: 20:29
--- NOTE | 2022-03-23 20:08 | XR ---
EXAMINATION TYPE: XR ankle complete RT DATE OF EXAM: 03/23/2022 COMPARISON: NONE HISTORY: Pain TECHNIQUE: 3 views FINDINGS: There is soft tissue swelling over the lateral malleolus. There is nondisplaced chip fractu re of the distal fibula. The talus is intact. Subtalar joint appears normal. IMPRESSION: Nondisplaced 5 mm chip fracture of the tip of the distal fibula. Soft tissue swelling.
--- NOTE | 2022-03-23 20:09 | XR ---
EXAMINATION TYPE: XR Hip RT and AP Pelvis DATE OF EXAM: 03/23/2022 COMPARISON: NONE HISTORY: Fall. Pain TECHNIQUE: 3 views FINDINGS: Pelvic ring is intact. The proximal right femur and hip joint are intact. Sacroiliac joints are intact. IMPRESSION: Negative pelvis and right hip exam.
--- NOTE | 2022-03-23 20:10 | XR ---
EXAMINATION TYPE: XR lumbosacral spine min 4V DATE OF EXAM: 03/23/2022 COMPARISON: NONE HISTORY: Fall. Pain TECHNIQUE: 5 views FINDINGS: Lumbar vertebrae have normal spacing and alignment. Posterior elements are intact. No compr ession fracture. Sacroiliac joints are intact. IMPRESSION: Negative lumbar spine exam. No fracture seen.
--- NOTE | 2022-03-23 20:11 | XR ---
EXAMINATION TYPE: XR ribs RT w pa chest xray DATE OF EXAM: 03/23/2022 COMPARISON: 12/12/2021 HISTORY: Pain TECHNIQUE: 5 views FINDINGS: There is no heart failure nor confluent pneumonic infiltrate. Heart size is normal. No pleu ral effusion or pneumothorax. The right ribs appear intact. No fracture seen. IMPRESSION: No active cardiopulmonary disease. No evidence of rib fracture.
[2022-03-23] MEDS ORDERED: HYDROmorphone 1 MG/ML 1 ML SYRINGE IVP STA (20:21)
[2022-03-23 20:30] VITALS: BP 106/82; PULSE 74; RESP 16; TEMP 98.2
== END 2022-03-23 20:45 | disposition home or self-care (01) ==
LOC: EC 18:46
DX: S82.891A Other fracture of right lower leg, initial encounter for closed fracture (principal); S93.401A Sprain of unspecified ligament of right ankle, initial encounter; K21.9 Gastro-esophageal reflux disease without esophagitis; M19.90 Unspecified osteoarthritis, unspecified site; F41.9 Anxiety disorder, unspecified; F17.200 Nicotine dependence, unspecified, uncomplicated; Z79.83 Long term (current) use of bisphosphonates; Z79.891 Long term (current) use of opiate analgesic; W18.30XA Fall on same level, unspecified, initial encounter; Y92.002 Bathroom of unspecified non-institutional (private) residence as the place of occurrence of the external cause
CPT/HCPCS: 71101; 72110; 73502; 73610; 99285; 96374; 96375; J1170; J1885

== ENCOUNTER 2023-04-07 22:53 | Emergency (ER) | payer OTHER, MEDICARE ==
[2023-04-07 23:07] VITALS: TEMP 97.7
[2023-04-08] MEDS ORDERED: LORazepam 2 MG/ML INJ IV STA (01:29)
[2023-04-08 02:05] LABS: Basophils # (A) 0.1 k/uL (0-0.2); Basophils % (A) 1 %; Eosinophils # (A) 0.1 k/uL (0-0.7); Eosinophils % (A) 1 %; HCT 38.6 % (34.0-46.0); Lymphocytes # (A) 1.6 k/uL (1.0-4.8); Lymphocytes % (A) 26 %; MCH 31.5 pg (25.0-35.0); MCHC 33.7 g/dL (31.0-37.0); MCV 93.4 fL (80.0-100.0); Mean Platelet Volume 7.9; Monocytes # (A) 0.3 k/uL (0-1.0); Monocytes % (A) 5 %; Neutrophils # (A) 4.1 k/uL (1.3-7.7); Neutrophils % (A) 65 %; Platelet Count 211 k/uL (150-450); RBC 4.13 m/uL (3.80-5.40); RDW 12.3 % (11.5-15.5); WBC 6.2 k/uL (3.8-10.6)
[2023-04-08 02:18] LABS: ALT 22 U/L (4-34); AST 27 U/L (14-36); African American GFR (CKD) >90 (>60 ml/min/1.73 sqM); Albumin 4.3 g/dL (3.5-5.0); Alkaline Phosphatase 58 U/L (38-126); Anion Gap 11 mmol/L; Blood Urea Nitrogen 13 mg/dL (7-17); Calcium 9.3 mg/dL (8.4-10.2); Carbon Dioxide 23 mmol/L (22-30); Chloride 105 mmol/L (98-107); Glucose 98 mg/dL (74-99); Magnesium 1.8 mg/dL (1.6-2.3); Non-African American GFR(CKD) >90 (>60 ml/min/1.73 sqM); Potassium 3.9 mmol/L (3.5-5.1); Sodium 139 mmol/L (137-145); Total Bilirubin 0.5 mg/dL (0.2-1.3)
[2023-04-08 02:30] LABS: INR 0.9 (<1.2); Prothrombin Time 10.3 sec (10.0-12.5)
--- NOTE | 2023-04-08 03:23 | ED ---
General Adult HPI - General Chief complaint: Recheck/Abnormal Lab/Rx Stated complaint: Anxiety Time Seen by Provider: 04/08/23 01:09 Source: patient Mode of arrival: ambulatory Limitations: no limitations - History of Present Illness Initial comments: 57-year-old female presenting with chief complaint of anxiety. Patient states that at home she was starting to get the sensation of palpitations, throat tightness, and dizziness. She states that earlier she had taken a Benadryl and she did not want to take her Xanax after having taken a Benadryl. She denies chest pain, difficulty breathing, abdominal pain, nausea, vomiting, headache, vision or hearing changes, numbness, tingling, weakness. - Related Data Home Medications Medication Instructions Recorded Confirmed ALPRAZolam [Xanax] 1 mg PO BID PRN 02/10/17 01/21/23 HYDROcodone/APAP 7.5-325MG [[place] 1 tab PO TID PRN 08/26/18 01/21/23 7.5-325] SUMAtriptan succinate [Imitrex] 50 mg PO BID PRN 08/26/18 01/21/23 Omeprazole [PriLOSEC] 20 mg PO BID PRN 03/10/19 01/21/23 Cyclobenzaprine [Flexeril] 5 mg PO TID PRN 03/23/22 01/21/23 Previous Rx's Medication Instructions Recorded Molnupiravir [Molnupiravir (Eua)] 800 mg PO BID #40 cap 01/21/23 Allergies Allergy/AdvReac Type Severity Reaction Status Date / Time bupropion [From Wellbutrin] Allergy Confusion Verified 04/07/23 23:00 pregabalin [From Lyrica] Allergy Confusion Verified 04/07/23 23:00 Review of Systems ROS Statement: Those systems with pertinent positive or pertinent negative responses have been documented in the HPI. ROS Other: All systems not noted in ROS Statement are negative. Past Medical History Past Medical History: Cancer, CVA/TIA, Fibromyalgia, GERD/Reflux, Osteoarthritis (OA), Thyroid Disorder Additional Past Medical History / Comment(s): HYPOTHYROID, LT Breast CA- HX radiation, POSSIBLE MIGRAINE HEADACHES ,TIA . PFO CLOSURE -(HOLE IN HEART CLOSED ) History of Any Multi-Drug Resistant Organisms: None Reported Past Surgical History: Breast Surgery, Cholecystectomy, Hysterectomy, Pacemaker, Tubal Ligation Additional Past Surgical History / Comment(s): PARTIAL LT MASTECTOMY, LEAD WIRE REPLACED (FOR PACEMAKER), Past Anesthesia/Blood Transfusion Reactions: Motion Sickness Type of Cardiac Device: Permanent Pacemaker Device Placement Date:: 03/09/15 Past Psychological History: ADD/ADHD, Anxiety Smoking Status: Current every day smoker Past Alcohol Use History: None Reported Past Drug Use History: None Reported - Past Family History Father Family Medical History: No Reported History Additional Family Medical History / Comment(s): Father is alive but she does not know his medical history. Mother Family Medical History: No Reported History Additional Family Medical History / Comment(s): Mother is alive at age 74 with no major medical problems. Brother(s) Family Medical History: No Reported History Additional Family Medical History / Comment(s): The patient has 1 brother with no major medical problems. Sister(s) Family Medical History: No Reported History Additional Family Medical History / Comment(s): Patient has one sister and she has irritable bowel syndrome. Daughter(s) Family Medical History: No Reported History Additional Family Medical History / Comment(s): Patient has one daughter with no major medical problems. General Exam Limitations: no limitations General appearance: alert, in no apparent distress Head exam: Present: atraumatic, normocephalic, normal inspection Eye exam: Present: normal appearance, EOMI Neck exam: Present: normal inspection, full ROM Respiratory exam: Present: normal lung sounds bilaterally. Absent: respiratory distress, wheezes, rales, rhonchi, stridor Cardiovascular Exam: Present: regular rate, normal rhythm, normal heart sounds. Absent: systolic murmur, diastolic murmur, rubs, gallop, clicks Extremities exam: Present: normal inspection, full ROM Neurological exam: Present: alert, oriented X3 Expanded Patient oriented to: Present: person, place, time Speech: Present: fluid speech Cranial nerves: EOM's Intact: Normal Eye Response: (4) open spontaneously Motor Response: (6) obeys commands Verbal Response: (5) oriented [place] Total: 15 Psychiatric exam: Present: anxious Skin exam: Present: warm, dry, intact, normal color. Absent: rash Course Vital Signs 04/07/23 22:56 Temperature 97.7 F Pulse Rate 85 Respiratory 16 Rate Blood Pressure 108/77 O2 Sat by Pulse 98 Oximetry EKG Findings - EKG Comments: EKG Findings:: Sinus rhythm ventricular rate 85. CA interval 176. QRS 88. QT 373. QTC 415. Medical Decision Making - Medical Decision Making Was pt. sent in by a medical professional or institution (, KENDY, TOOL ROOM ATTENDANT, urgent care, hospital, or group home...) When possible be specific @ -[No] Did you speak to anyone other than the patient for history (EMS, parent, family, police, friend...)? What history was obtained from this source @ -[No] Did you review nursing and triage notes (agree or disagree)? Why? @ -[I reviewed and agree with nursing and triage notes] Were old charts reviewed (outside hosp., previous admission, EMS record, old EKG, old radiological studies, urgent care reports/EKG's, group home records)? Report findings @ -[No old charts were reviewed] Differential Diagnosis (chest pain, altered mental status, abdominal pain women, abdominal pain men, vaginal bleeding, weakness, fever, dyspnea, syncope, headache, dizziness, GI bleed, back pain, seizure, CVA, palpatations, mental health, musculoskeletal)? @ -MDM Differential Dizziness: Benign paroxysmal positional Vertigo, Menieres disease, otitis media, acoustic neuroma, vertebrobasilar insufficiency, cerebellar stroke, encephalitis, hypovolemic, arrhythmia, coronary artery syndrome, anemia this is not meant to be an all-inclusive list EKG interpreted by me (3pts min.). @ -[As above] X-rays interpreted by me (1pt min.). @ -Chest x-ray shows no acute process CT interpreted by me (1pt min.). @ -[None done] U/S interpreted by me (1pt. min.). @ -[None done] What testing was considered but not performed or refused? (CT, X-rays, U/S, labs)? Why? @ -[None] What meds were considered but not given or refused? Why? @ -[None] Did you discuss the management of the patient with other professionals (professionals i.e. KENDY Bray, TOOL ROOM ATTENDANT, lab, RT, psych nurse, criminal justice social worker, marketing services rep, teacher, access control officer, dependency case manager)? Give summary @ -[No] Was smoking cessation discussed for >3mins.? @ -[No] Was critical care preformed (if so, how long)? @ -[No] Were there social determinants of health that impacted care today? How? (Homelessness, low income, unemployed, alcoholism, drug addiction, transportation, low edu. Level, literacy, decrease access to med. care, penitentiary, rehab)? @ -[No] Was there de-escalation of care discussed even if they declined (Discuss DNR or withdrawal of care, Hospice)? DNR status @ -[No] What co-morbidities impacted this encounter? (DM, HTN, Smoking, COPD, CAD, Cancer, CVA, ARF, Chemo, Hep., AIDS, mental health diagnosis, sleep apnea, morbid obesity)? @ -[None] Was patient admitted / discharged? Hospital course, mention meds given and route, prescriptions, significant lab abnormalities, going to OR and other pertinent info. @ -57-year-old female presenting with chief complaint of anxiety. Patient states that she started to feel the symptoms at home but wanted to "get checked out" and was afraid to take her Xanax because she had taken Benadryl earlier in the day. History of physical exam were conducted. Lab work is grossly unremarkable. Negative chest x-ray. EKG shows no acute findings. Patient reports improvement after Ativan. Patient is educated on today's findings. Follow-up with PCP. Report back to ER with any new or worsening symptoms. Discussed return parameters and answered all questions. Patient conveyed verbal understanding and agreed to the plan. I discussed this case in detail with my attending Dr. Segura Undiagnosed new problem with uncertain prognosis? @ -[No] Drug Therapy requiring intensive monitoring for toxicity (Heparin, Nitro, Insulin, Cardizem)? @ -[No] Were any procedures done? @ -[No] Diagnosis/symptom? @ -Anxiety attack Acute, or Chronic, or Acute on Chronic? @ -Acute Uncomplicated (without systemic symptoms) or Complicated (systemic symptoms)? @ -Complicated Side effects of treatment? @ -[No] Exacerbation, Progression, or Severe Exacerbation? @ -[No] Poses a threat to life or bodily function? How? (Chest pain, [place], [place], pneumonia, PE, COPD, DKA, ARF, appy, cholecystitis, CVA, Diverticulitis, Homicidal, Suicidal, threat to staff... and all critical care pts) @ -[No] - Lab Data Result diagrams: 04/08/23 01:41 04/08/23 01:41 Lab Results 04/08/23 04/08/23 04/08/23 Range/Units 01:41 01:41 01:41 WBC 6.2 (3.8-10.6) k/uL RBC 4.13 (3.80-5.40) m/uL Hgb 13.0 (11.4-16.0) gm/dL Hct 38.6 (34.0-46.0) % MCV 93.4 (80.0-100.0) fL MCH 31.5 (25.0-35.0) pg MCHC 33.7 (31.0-37.0) g/dL RDW 12.3 (11.5-15.5) % Plt Count 211 (150-450) k/uL MPV 7.9 Neutrophils % 65 % Lymphocytes % 26 % Monocytes % 5 % Eosinophils % 1 % Basophils % 1 % Neutrophils # 4.1 (1.3-7.7) k/uL Lymphocytes # 1.6 (1.0-4.8) k/uL Monocytes # 0.3 (0-1.0) k/uL Eosinophils # 0.1 (0-0.7) k/uL Basophils # 0.1 (0-0.2) k/uL PT 10.3 (10.0-12.5) sec INR 0.9 (<1.2) APTT 23.0 (22.0-30.0) sec Sodium 139 (137-145) mmol/L Potassium 3.9 (3.5-5.1) mmol/L Chloride 105 (98-107) mmol/L Carbon Dioxide 23 (22-30) mmol/L Anion Gap 11 mmol/L BUN 13 (7-17) mg/dL Creatinine 0.67 (0.52-1.04) mg/dL Est GFR (CKD-EPI)AfAm >90 (>60 ml/min/1.73 sqM) Est GFR (CKD-EPI)NonAf >90 (>60 ml/min/1.73 sqM) Glucose 98 (74-99) mg/dL Calcium 9.3 (8.4-10.2) mg/dL Magnesium 1.8 (1.6-2.3) mg/dL Total Bilirubin 0.5 (0.2-1.3) mg/dL AST 27 (14-36) U/L ALT 22 (4-34) U/L Alkaline Phosphatase 58 (38-126) U/L Troponin I (0.000-0.034) ng/mL Total Protein 7.0 (6.3-8.2) g/dL Albumin 4.3 (3.5-5.0) g/dL 04/08/23 Range/Units 01:41 WBC (3.8-10.6) k/uL RBC (3.80-5.40) m/uL Hgb (11.4-16.0) gm/dL Hct (34.0-46.0) % MCV (80.0-100.0) fL MCH (25.0-35.0) pg MCHC (31.0-37.0) g/dL RDW (11.5-15.5) % Plt Count (150-450) k/uL MPV Neutrophils % % Lymphocytes % % Monocytes % % Eosinophils % % Basophils % % Neutrophils # (1.3-7.7) k/uL Lymphocytes # (1.0-4.8) k/uL Monocytes # (0-1.0) k/uL Eosinophils # (0-0.7) k/uL Basophils # (0-0.2) k/uL PT (10.0-12.5) sec INR (<1.2) APTT (22.0-30.0) sec Sodium (137-145) mmol/L Potassium (3.5-5.1) mmol/L Chloride (98-107) mmol/L Carbon Dioxide (22-30) mmol/L Anion Gap mmol/L BUN (7-17) mg/dL Creatinine (0.52-1.04) mg/dL Est GFR (CKD-EPI)AfAm (>60 ml/min/1.73 sqM) Est GFR (CKD-EPI)NonAf (>60 ml/min/1.73 sqM) Glucose (74-99) mg/dL Calcium (8.4-10.2) mg/dL Magnesium (1.6-2.3) mg/dL Total Bilirubin (0.2-1.3) mg/dL AST (14-36) U/L ALT (4-34) U/L Alkaline Phosphatase (38-126) U/L Troponin I <0.012 (0.000-0.034) ng/mL Total Protein (6.3-8.2) g/dL Albumin (3.5-5.0) g/dL Disposition Clinical Impression: Panic attack Disposition: HOME SELF-CARE Condition: Good Instructions (If sedation given, give patient instructions): Panic Attack (ED) Additional Instructions: Follow-up with PCP. Report back to ER with any new or worsening symptoms. Is patient prescribed a controlled substance at d/c from ED?: No Referrals: London Vera DO [Primary Care Provider] - 1-2 days Time of Disposition: 03:24
[2023-04-08 03:46] VITALS: BP 121/85; PULSE 95; RESP 20
--- NOTE | 2023-04-08 05:52 | XR ---
EXAM: XR Chest, 2 Views CLINICAL HISTORY: dysrhythmia TECHNIQUE: Frontal and lateral views of the chest. COMPARISON: January 21, 2023. FINDINGS: Lungs: Unremarkable. No infiltration, atelectasis or mass density. Pleural space: Unremarkable. No pneumothorax. No pleural fluid. Heart: Unremarkable. No cardiomegaly. Mediastinum: Unremarkable. Normal mediastinal contour. Bones/joints: Unremarkable. No acute abnormalities. Tubes, lines and devices: Stable implanted cardiac pacer. IMPRESSION: No acute findings in the chest.
== END 2023-04-08 03:39 | disposition home or self-care (01) ==
LOC: EC 22:53
DX: F41.0 Panic disorder [episodic paroxysmal anxiety] (principal); K21.9 Gastro-esophageal reflux disease without esophagitis; F17.200 Nicotine dependence, unspecified, uncomplicated; F90.9 Attention-deficit hyperactivity disorder, unspecified type; Z79.899 Other long term (current) drug therapy; Z88.8 Allergy status to other drugs, medicaments and biological substances
CPT/HCPCS: 36415; 93005; 80053; 83735; 84484; 85025; 85610; 85730; 71046; 99283; 96374; J2060

== ENCOUNTER 2024-02-17 11:29 | Observation (INO) | payer MEDICARE ==
--- NOTE | 2024-02-17 12:12 | ED ---
Abdominal Pain HPI - General Chief Complaint: Abdominal Pain Stated Complaint: Abd pain Time Seen by Provider: 02/17/24 11:33 Source: patient, RN notes reviewed Mode of arrival: EMS Limitations: no limitations - History of Present Illness Initial Comments: This is a 58-year-old female who presents to the emergency department for abdominal pain. Patient reports lower abdominal pain starting around 3 AM. Pain is not worse on any particular side. Denies any radiation of pain into the back. Reports associated nausea but no vomiting. Denies any changes in bowel or bladder habits. Believes that she may have had similar symptoms in the past, but nothing exactly like this. Denies any fevers or chills. MD Complaint: abdominal pain - Related Data Home Medications Medication Instructions Recorded Confirmed ALPRAZolam [Xanax] 1 mg PO BID PRN 02/10/17 02/17/24 HYDROcodone/APAP 7.5-325MG [[place] 1 tab PO TID PRN 08/26/18 02/17/24 7.5-325] Omeprazole [PriLOSEC] 20 mg PO BID 03/10/19 02/17/24 Allergies Allergy/AdvReac Type Severity Reaction Status Date / Time bupropion [From Wellbutrin] AdvReac Confusion Verified 02/17/24 13:01 pregabalin [From Lyrica] AdvReac Confusion Verified 02/17/24 13:01 Review of Systems ROS Statement: Those systems with pertinent positive or pertinent negative responses have been documented in the HPI. ROS Other: All systems not noted in ROS Statement are negative. Past Medical History Past Medical History: Cancer, CVA/TIA, Fibromyalgia, GERD/Reflux, Osteoarthritis (OA), Thyroid Disorder Additional Past Medical History / Comment(s): HYPOTHYROID, LT Breast CA- HX radiation, POSSIBLE MIGRAINE HEADACHES ,TIA . PFO CLOSURE -(HOLE IN HEART CLOSED ) History of Any Multi-Drug Resistant Organisms: None Reported Past Surgical History: Breast Surgery, Cholecystectomy, Hysterectomy, Pacemaker, Tubal Ligation Additional Past Surgical History / Comment(s): PARTIAL LT MASTECTOMY, LEAD WIRE REPLACED (FOR PACEMAKER), Past Anesthesia/Blood Transfusion Reactions: Motion Sickness Type of Cardiac Device: Permanent Pacemaker Device Placement Date:: 03/09/15 Past Psychological History: ADD/ADHD, Anxiety Smoking Status: Current every day smoker Past Alcohol Use History: None Reported Past Drug Use History: None Reported - Past Family History Father Family Medical History: No Reported History Additional Family Medical History / Comment(s): Father is alive but she does not know his medical history. Mother Family Medical History: No Reported History Additional Family Medical History / Comment(s): Mother is alive at age 74 with no major medical problems. Brother(s) Family Medical History: No Reported History Additional Family Medical History / Comment(s): The patient has 1 brother with no major medical problems. Sister(s) Family Medical History: No Reported History Additional Family Medical History / Comment(s): Patient has one sister and she has irritable bowel syndrome. Daughter(s) Family Medical History: No Reported History Additional Family Medical History / Comment(s): Patient has one daughter with no major medical problems. General Exam Limitations: no limitations General appearance: alert, in distress Head exam: Present: atraumatic, normocephalic, normal inspection Respiratory exam: Present: normal lung sounds bilaterally. Absent: respiratory distress, wheezes, rales, rhonchi, stridor Cardiovascular Exam: Present: regular rate, normal rhythm, normal heart sounds. Absent: systolic murmur, diastolic murmur, rubs, gallop, clicks GI/Abdominal exam: Present: soft, tenderness (diffuse), normal bowel sounds. Absent: distended Neurological exam: Present: alert, oriented X3, CN II-XII intact Psychiatric exam: Present: normal affect, normal mood Skin exam: Present: warm, dry, intact, normal color. Absent: rash Course Vital Signs 02/17/24 02/17/24 02/17/24 11:46 11:50 16:14 Temperature 97.6 F 97.6 F 98.1 F Pulse Rate 64 64 72 Respiratory 17 16 16 Rate Blood Pressure 119/73 119/73 112/68 O2 Sat by Pulse 99 99 100 Oximetry Medical Decision Making - Medical Decision Making This is a 58 year old female who presents to the emergency department for abdominal pain. Was pt. sent in by a medical professional or institution? @ -No Did you speak to anyone other than the patient for history? @ -No Did you review nursing and triage notes? @ -Yes, and I agree, it is accurate with regards to the patient's symptoms. Were old charts reviewed? @ -No Differential Diagnosis? @ -Differential Abdominal Pain Women: Appendicitis, Cholecystitis, diverticulosis, ischemic bowel, pancreatitis, hepatitis, UTI, gastroenteritis, AAA, incarcerated hernia, bowel obstruction, constipation, inflammatory bowel, hepatitis, peptic ulcer disease, splenic infarction, perforated viscus, vulvitis, ovarian torsion, PID, kidney stone, placenta abruption, this is not meant to be an all-inclusive list EKG interpreted by me (3pts min.)? @ -EKG interpreted by me demonstrating the following: Sinus bradycardia. Ventricular rate 57 bpm, PA interval 167 ms, QRS duration 85 ms, QTc 423 ms. X-rays interpreted by me (1pt min.)? @ -Not obtained CT interpreted by me (1pt min.)? @ -CT scan of the abdomen and pelvis obtained. My interpretation identifies wall thickening of the large intestine. U/S interpreted by me (1pt. min.)? @ -Not obtained What testing was considered but not performed? (CT, X-rays, U/S, labs)? Why? @ -None What meds were considered but not given? Why? @ -None Did you discuss the management of the patient with other professionals? @ -Yes, Dr. Goff, who accepts the patient for admission. Did you reconcile home meds? @ -Yes Was smoking cessation discussed for >3mins.? @ -I discussed smoking cessation for greater than 3 minutes. The risk of smoking were discussed with the patient including but not limited to risks of cancer, stroke, coronary artery disease and COPD. Also discussed with patient were multiple methods of quitting smoking. Lastly we discussed the financial cost of smoking. Was critical care preformed (if so, how long)? @ -No Were there social determinants of health that impacted care today? How? (Homele ssness, low income, unemployed, alcoholism, drug addiction, transportation, low edu. Level, literacy, decrease access to med. care, intermediate, rehab)? @ -No Was there de-escalation of care discussed even if they declined? (Discuss DNR or withdrawal of care, Hospice)? @ -No What co-morbidities impacted this encounter? (DM, HTN, Smoking, COPD, CAD, Canc er, CVA, Hep., AIDS, mental health diagnosis, sleep apnea, morbid obesity)? @ -Smoking, GERD Was patient admitted / discharged? @ -Admitted. Lab work demonstrates mild leukocytosis with a white blood cell count of 11.3. He has mild hypokalemia with a potassium of 3.4. CT scan of the abdomen and pelvis demonstrates colitis throughout the colon that is most p ronounced in the sigmoid colon. Patient received several analgesics and antiemetics in the emergency department and continued to be fairly symptomatic. She was unable to tolerate oral intake or have the pain controlled. Given the persistence and severity of her symptoms, patient was admitted to medicine for intractable pain and intractable nausea and vomiting related to colitis. She was started on maintenance fluid. Consult was placed for GI. Case discussed with ED attending Dr. Gonzalez. Undiagnosed new problem with uncertain prognosis? @ -None Drug Therapy requiring intensive monitoring for toxicity (Heparin, Nitro, Insulin, Cardizem)? @ -None Were any procedures done? @ -None Diagnosis/symptom? @ -Colitis, intractable abdominal pain, intractable nausea and vomiting Acute, or Chronic, or Acute on Chronic? @ -Acute Uncomplicated (without systemic symptoms) or Complicated (systemic symptoms)? @ -Complicated Side effects of treatment? @ -None Exacerbation, Progression, or Severe Exacerbation] @ -Not applicable Poses a threat to life or bodily function? @ -Her symptoms are limiting her ability to function. - Lab Data Result diagrams: 02/17/24 12:36 02/17/24 12:36 Lab Results 02/17/24 02/17/24 02/17/24 Range/Units 12:36 12:36 12:36 WBC 11.3 H (3.8-10.6) k/uL RBC 3.81 (3.80-5.40) m/uL Hgb 12.4 (11.4-16.0) gm/dL Hct 36.8 (34.0-46.0) % MCV 96.6 (80.0-100.0) fL MCH 32.5 (25.0-35.0) pg MCHC 33.7 (31.0-37.0) g/dL RDW 12.5 (11.5-15.5) % Plt Count 195 (150-450) k/uL MPV 8.3 Neutrophils % 90 % Lymphocytes % 6 % Monocytes % 2 % Eosinophils % 1 % Basophils % 0 % Neutrophils # 10.2 H (1.3-7.7) k/uL Lymphocytes # 0.7 L (1.0-4.8) k/uL Monocytes # 0.3 (0-1.0) k/uL Eosinophils # 0.1 (0-0.7) k/uL Basophils # 0.0 (0-0.2) k/uL Sodium 139 (137-145) mmol/L Potassium 3.4 L (3.5-5.1) mmol/L Chloride 108 H (98-107) mmol/L Carbon Dioxide 26 (22-30) mmol/L Anion Gap 5 mmol/L BUN 10 (7-17) mg/dL Creatinine 0.65 (0.52-1.04) mg/dL Est GFR (CKD-EPI)AfAm >90 (>60 ml/min/1.73 sqM) Est GFR (CKD-EPI)NonAf >90 (>60 ml/min/1.73 sqM) Glucose 139 H (74-99) mg/dL Plasma Lactic Acid Tj 1.8 (0.7-2.0) mmol/L Calcium 8.6 (8.4-10.2) mg/dL Total Bilirubin 0.4 (0.2-1.3) mg/dL AST 19 (14-36) U/L ALT 14 (4-34) U/L Alkaline Phosphatase 54 (38-126) U/L Total Protein 5.8 L (6.3-8.2) g/dL Albumin 3.5 (3.5-5.0) g/dL Amylase 33 (30-110) U/L Lipase 22 L (23-300) U/L - Radiology Data Radiology results: report reviewed, image reviewed Disposition Clinical Impression: Intractable abdominal pain, Colitis, Intractable nausea and vomiting, Nicotine dependence Disposition: ADMITTED IP TO THIS HOSP
[2024-02-17] MEDS: SODIUM CHLORIDE 0.9% 1,000 ML IV STA (12:30)
[2024-02-17] MEDS: HYDROmorphone 1 MG/ML 1 ML SYRINGE IVP STA (12:30)
[2024-02-17] MEDS: ONDANSETRON 4 MG/2 ML VIAL IVP STA ×2 (12:31→14:57)
[2024-02-17] MEDS: KETOROLAC 15 MG/ML 1 ML VIAL IVP STA ×2 (12:31→14:57)
[2024-02-17 12:54] LABS: ALT 14 U/L (4-34); AST 19 U/L (14-36); African American GFR (CKD) >90 (>60 ml/min/1.73 sqM); Albumin 3.5 g/dL (3.5-5.0); Alkaline Phosphatase 54 U/L (38-126); Amylase 33 U/L (30-110); Anion Gap 5 mmol/L; Blood Urea Nitrogen 10 mg/dL (7-17); Calcium 8.6 mg/dL (8.4-10.2); Carbon Dioxide 26 mmol/L (22-30); Chloride 108 mmol/L (98-107); Glucose 139 mg/dL (74-99); Lipase 22 U/L (23-300); Non-African American GFR(CKD) >90 (>60 ml/min/1.73 sqM); Potassium 3.4 mmol/L (3.5-5.1); Sodium 139 mmol/L (137-145); Total Bilirubin 0.4 mg/dL (0.2-1.3); Total Protein 5.8 g/dL (6.3-8.2)
[2024-02-17 12:55] LABS: Basophils % (A) 0 %; Eosinophils # (A) 0.1 k/uL (0-0.7); Eosinophils % (A) 1 %; HCT 36.8 % (34.0-46.0); HGB 12.4 gm/dL (11.4-16.0); Lymphocytes # (A) 0.7 k/uL (1.0-4.8); Lymphocytes % (A) 6 %; MCH 32.5 pg (25.0-35.0); MCHC 33.7 g/dL (31.0-37.0); MCV 96.6 fL (80.0-100.0); Mean Platelet Volume 8.3; Monocytes # (A) 0.3 k/uL (0-1.0); Monocytes % (A) 2 %; Neutrophils # (A) 10.2 k/uL (1.3-7.7); Neutrophils % (A) 90 %; Platelet Count 195 k/uL (150-450); RBC 3.81 m/uL (3.80-5.40); RDW 12.5 % (11.5-15.5); WBC 11.3 k/uL (3.8-10.6)
--- NOTE | 2024-02-17 14:14 | CT ---
EXAMINATION TYPE: CT abdomen pelvis w con CT DLP: 576.3 mGycm, Automated exposure control for dose reduction was used. DATE OF EXAM: 02/17/2024 2:05 PM COMPARISON: CT abdomen pelvis most recent from 12/30/2020 CLINICAL INDICATION: Female, 58 years old with history of abdominal pain, acute, nonlocalized; Abdomi nal pain, acute, nonlocalized TECHNIQUE: Axial CT abdomen pelvis w con;Sagittal and coronal reformats were created on a separate w orkstation. Contrast used:100 ml mL of Isovue 300 with IV Contrast, (none if empty) Oral contrast used: without Oral Contrast (none if empty) FINDINGS: LOWER CHEST: Cardiac conduction leads terminating in the right ventricle and atrium. ABDOMEN LIVER: Unremarkable GALLBLADDER AND BILE DUCTS: Gallbladder surgically absent. PANCREAS: Unremarkable. SPLEEN: Unremarkable. ADRENAL GLANDS: Unremarkable. KIDNEYS AND URETERS: No evidence of hydronephrosis or renal calculus. The ureters are unremarkable. PELVIS BLADDER: Unremarkable REPRODUCTIVE: The uterus is surgically absent. ABDOMEN & PELVIS STOMACH AND BOWEL: Mild circumferential wall thickening of the colon which is nondistended, findings most pronounced sigmoid colon. There is some mild haziness surrounding the colonic mercer..No evidence of bowel obstruction. Appendix is normal. Small hiatal hernia. PERITONEUM/RETROPERITONEUM: No evidence of pneumoperitoneum or free fluid. VASCULATURE: No evidence of aortic aneurysm. MUSCULOSKELETAL: No acute osseous abnormalities LYMPH NODES: No gross evidence for lymphadenopathy. SOFT TISSUE/ABDOMINAL WALL: Unremarkable IMPRESSION: 1. Colitis throughout the colon most pronounced in the sigmoid colon with 2. Small hiatal hernia. [facility], , 02/17/2024 2:11 PM
[2024-02-17] MEDS: DICYCLOMINE 10 MG/ML 2 ML AMP IM STA (15:01)
[2024-02-17] MEDS: METOCLOPRAMIDE 5 MG/ML 2 ML VIAL IVP STA (16:07)
[2024-02-17] MEDS ORDERED: NALOXONE 0.4 MG/ML 1 ML VIAL IV PRN (16:38)
[2024-02-17] MEDS ORDERED: ONDANSETRON 4 MG/2 ML VIAL IVP PRN (16:38)
[2024-02-17] MEDS ORDERED: HYDROmorphone 0.5 MG/0.5 ML SYRINGE IVP PRN (16:38)
[2024-02-17] MEDS ORDERED: HYDROcodone/APAP 7.5-325MG 1 EACH TAB PO PRN (16:42)
[2024-02-17] MEDS ORDERED: ALPRAZolam 1 MG TAB PO PRN (16:42)
[2024-02-17] MEDS: SODIUM CHLORIDE 0.9% 1,000 ML IV SCH (17:20)
[2024-02-17] MEDS: METOCLOPRAMIDE 5 MG/ML 2 ML VIAL IVP PRN (20:19)
[2024-02-17] MEDS ORDERED: PANTOPRAZOLE 40 MG TABLET PO SCH (21:00)
[2024-02-18] MEDS: KETOROLAC 15 MG/ML 1 ML VIAL IVP PRN (06:47)
[2024-02-18 07:11] LABS: Appearance,Urine Clear (Clear); Bilirubin,Urine Negative (Negative); Blood,Urine Negative (Negative); Color,Urine Colorless; Glucose,Urine (UA) Negative (Negative); Ketones,Urine 2+ (Negative); Leukocyte Esterase,Urine Negative (Negative); Nitrite,Urine Negative (Negative); Protein,Urine Negative (Negative); Specific Gravity,Urine 1.027 (1.001-1.035); Urobilinogen,Urine <2.0 mg/dL (<2.0)
[2024-02-18] MEDS: PANTOPRAZOLE 40 MG/10 ML VIAL IV SCH (08:01)
[2024-02-18] MEDS: HYDROmorphone 1 MG/ML 1 ML SYRINGE IVP PRN (08:21)
[2024-02-18] MEDS: PIPERACILLIN-TAZOBACTAM 3.375 GM in SODIUM CHLORIDE 0.9% 100 ML IVPB SCH (11:38)
--- NOTE | 2024-02-18 16:00 | P.CONS ---
History of Present Illness - Reason for Consult Consult date: 02/18/24 Colitis, intractable abdominal pain Requesting physician: Lisa Ladd - Chief Complaint Abdominal pain, nausea and vomiting - History of Present Illness This is a pleasant 58-year-old white female who presented to the emergency department yesterday evening with complaints of nausea vomiting and abdominal pain. Patient states she started having abdominal pain, nausea vomiting and diarrhea yesterday afternoon. It continued to get worse and she states the pain was so unbearable and presented to the emergency department for further evaluation. She has a history of previous similar symptoms in the past and states she was diagnosed with infectious colitis. Last EGD colonoscopy was in February 2021. EGD with findings of gastritis and LA grade a reflux esophagit is. Colonoscopy was normal. She denies any sick contacts, no recent travel, states no diarrhea today or vomiting just some nausea. Denies any blood in her stool, no hematemesis. Review of Systems REVIEW OF SYSTEMS: CARDIOPULMONARY: No chest pain or shortness of breath. Gastrointestinal: Abdominal pain. Nausea and vomiting. No hematemesis, coffee-ground emesis. No rectal bleeding, or melena. GENITOURINARY: No dysuria or hematuria. MUSCULOSKELETAL: Reports normal range of motion., Joint pain. SKIN: No rashes. No jaundice. ENDOCRINE: No chills, fevers. No excessive weight gain or loss. No polydipsia or polyuria. PSYCHIATRIC: Unremarkable. NEUROLOGY: No change in mental status. Denies dizziness, headache. ENT: Vision unremarkable. CONSTITUTIONAL: No recent weight loss. No fever, chills, night sweats. Past Medical History Past Medical History: Cancer, CVA/TIA, Fibromyalgia, GERD/Reflux, Osteoarthritis (OA), Thyroid Disorder Additional Past Medical History / Comment(s): HYPOTHYROID, LT Breast CA- HX radiation, lumpectomy, POSSIBLE MIGRAINE HEADACHES ,TIA . PFO CLOSURE -(HOLE IN HEART CLOSED ) History of Any Multi-Drug Resistant Organisms: None Reported Past Surgical History: Breast Surgery, Cholecystectomy, Hysterectomy, Pacemaker, Tubal Ligation Additional Past Surgical History / Comment(s): PARTIAL LT MASTECTOMY, LEAD WIRE REPLACED (FOR PACEMAKER),colitis Past Anesthesia/Blood Transfusion Reactions: Motion Sickness Type of Cardiac Device: Permanent Pacemaker Device Placement Date:: 03/09/15 Past Psychological History: ADD/ADHD, Anxiety Additional Psychological History / Comment(s): clausterphobia Smoking Status: Current every day smoker Past Alcohol Use History: None Reported Additional Past Alcohol Use History / Comment(s): started smoking AT AGE 14- smokes 1/2 ppd Past Drug Use History: None Reported Additional Drug Use History / Comment(s): medical marijuana RARELY USES - Past Family History Father Family Medical History: No Reported History Additional Family Medical History / Comment(s): Father is alive but she does not know his medical history. Mother Family Medical History: No Reported History Additional Family Medical History / Comment(s): Mother is alive at age 74 with no major medical problems. Brother(s) Family Medical History: No Reported History Additional Family Medical History / Comment(s): The patient has 1 brother with no major medical problems. Sister(s) Family Medical History: No Reported History Additional Family Medical History / Comment(s): Patient has one sister and she has irritable bowel syndrome. Daughter(s) Family Medical History: No Reported History Additional Family Medical History / Comment(s): Patient has one daughter with no major medical problems. Medications and Allergies Home Medications Medication Instructions Recorded Confirmed Type ALPRAZolam [Xanax] 1 mg PO BID PRN 02/10/17 02/17/24 History HYDROcodone/APAP 7.5-325MG [[place] 1 tab PO TID PRN 08/26/18 02/17/24 History 7.5-325] Omeprazole [PriLOSEC] 20 mg PO BID 03/10/19 02/17/24 History Allergies Allergy/AdvReac Type Severity Reaction Status Date / Time bupropion [From Wellbutrin] AdvReac Confusion Verified 02/17/24 13:01 pregabalin [From Lyrica] AdvReac Confusion Verified 02/17/24 13:01 Physical Exam Vitals: Vital Signs Temp Pulse Pulse Pulse Resp BP BP 02/18/24 07:00 98.2 F 63 16 02/18/24 02:00 99.2 F 70 17 108/61 02/17/24 21:25 99.1 F 63 18 111/61 02/17/24 20:15 99.9 F H 68 15 106/53 02/17/24 16:14 98.1 F 72 16 112/68 02/17/24 11:50 97.6 F 64 16 119/73 10/22/24 11:46 97.6 F 64 17 119/73 BP Pulse Ox 02/18/24 07:00 101/66 96 02/18/24 02:00 96 02/17/24 21:25 95 02/17/24 20:15 95 02/17/24 16:14 100 02/17/24 11:50 99 02/17/24 11:46 99 Intake and Output 02/17/24 02/18/24 02/18/24 22:59 06:59 14:59 Other: Voiding Method Toilet # Voids 1 1 Weight 54.431 kg General appearance: The patient is alert, oriented, appears in no acute distress. HET: Head is normocephalic and atraumatic. Conjunctiva pink. Sclera anicteric. Neck: Supple without lymphadenopathy. Trachea midline. Heart: Regular. Lungs: Equal expansion, normal respiratory effort. Abdomen: Soft, lower abdominal tenderness, nondistended. Skin: No rashes. No jaundice. Extremities: Normal skin color and turgor. No pedal edema. Neurological: No focal deficits. Alert and oriented x3. Results CBC & Chem 7: 02/17/24 12:36 02/17/24 12:36 Labs: Abnormal Lab Results - Last 24 Hours (Table) 02/17/24 02/17/24 02/18/24 Range/Units 12:36 12:36 06:18 WBC 11.3 H (3.8-10.6) k/uL Neutrophils # 10.2 H (1.3-7.7) k/uL Lymphocytes # 0.7 L (1.0-4.8) k/uL Potassium 3.4 L (3.5-5.1) mmol/L Chloride 108 H (98-107) mmol/L Glucose 139 H (74-99) mg/dL Total Protein 5.8 L (6.3-8.2) g/dL Lipase 22 L (23-300) U/L Urine Ketones 2+ H (Negative) Comments: CT abdomen and pelvis with contrast reports colitis throughout the colon most pronounced in the sigmoid colon with a small hiatal hernia. Assessment and Plan (1) Colitis Narrative/Plan: 58-year-old female with abdominal pain nausea and vomiting nonbloody presenting to the emergency department with CT scan showing thickening of the colon suggestive of colitis. Likely dealing with infectious colitis as patient did present with leukocytosis and low-grade fever. Will treat with IV antibiotics and symptomatic relief. Current Visit: Yes Status: Acute Code(s): K52.9 - NONINFECTIVE GASTROE NTERITIS AND COLITIS, UNSPECIFIED SNOMED Code(s): 70479213 Plan: 1. Continue symptomatic and supportive care 2. Will start on IV Zosyn 3. May have clear liquid diet 4. Pain medication as needed 5. Antiemetics as needed 6. Protonix 40 mg daily for GI prophylaxis 7. No plans on colonoscopy at this time Thank you for this consultation, we will continue to follow. Dr. Paco Conner I agree with the dictator's note, documented as a scribe by Lucero Bolton.
--- NOTE | 2024-02-18 17:31 | P.HPIM ---
History of Present Illness H&P Date: 02/18/24 Chief Complaint: abdominal pain Patient is a 58-year-old female with a PMH of breast cancer (in remission) s/p radiation and partial left masectomy , CVA/TIA, GERD, hypothyroidism presenting with abdominal pain. The pain woke her up 3am yesterday morning, and had sudden vomiting and diarrhea. Describes the pain as a sudden, sharp/stabbing pain, radiating from right lower quadrant to the left lower quadrant. She states the pain community where kept getting worse and decided to go to the emergency department. She states she has had symptoms similar in the past and was diagnosed with infectious colitis. She has not had a bowel movement since being admitted. Patient denies chest pain, shortness of breath, fever, chills, urinary symptoms. EKG independently interpreted Abdomen/pelvis CT displays colitis throughout the colon most pronounced in the sigmoid colon with small hiatal hernia lipase 22, lactic acid 1.8, WBC 11.3, Hgb 12.4, platelet 195, sodium 139, pota ssium 3.4, BUN 10, creatinine 0.65 T 99.2 F, ER 70, RR 17, BP 108/61 O2 sat 96% on room air ED documentation reviewed. Review of systems: Pertinent positives and negatives as discussed in HPI, a complete review of systems was performed and all other systems are negative. 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 Physical examination: Vital signs reviewed General: non toxic, no distress, appears at stated age, normal weight Derm: no unusual rashes/lesions, warm Head: atraumatic, normocephalic, symmetric Eyes: EOMI, anicteric sclera, pupils equal round reactive to light ENT: Nose and ears atraumatic Neck: No cervical lymphadenopathy, trachea midline, supple Mouth: no lip lesion, mucus membranes moist Cardiovascular: S1S2 reg, no murmur, positive dorsalis pedis pulse bilateral, no edema Lungs: CTA bilateral, no rhonchi, no rales, no accessory muscle use Abdominal: soft, diffuse lower left and lower right quadrant tenderness, no guarding Ext: muscle strength 5 out of 5 in all 4 extremities grossly, no gross muscle atrophy Neuro: CN II-XI grossly intact, no gross focal neuro deficits Psych: Alert, oriented to person, place, and time Assessment/Plan: Patient is a 58-year-old female with a past medical history of cancer, CVA/TIA, GERD, hypothyroidism presenting with abdominal pain. #. Abdominal pain secondary to colitis Placed on IV Zosyn Pain management as needed Antiemetics as needed Protonix 40 mg Stool culture pending C. difficile pending GI following, no plans for colonoscopy at this time F: NS@75 cc/HR E: Replete electrolytes as needed N: Clear liquid A: Ambulatory DVT prophylaxis: Lovenox 40 SQ daily The patient is admitted with an anticipated greater than than 2 midnight stay for evaluation of abdominal pain. CODE STATUS: Full code Discussed with: Patient Anticipated discharge place: Home Past Medical History Past Medical History: Cancer, CVA/TIA, Fibromyalgia, GERD/Reflux, Osteoarthritis (OA), Thyroid Disorder Additional Past Medical History / Comment(s): HYPOTHYROID, LT Breast CA- HX radi ation, lumpectomy, POSSIBLE MIGRAINE HEADACHES ,TIA . PFO CLOSURE -(HOLE IN HEART CLOSED ) History of Any Multi-Drug Resistant Organisms: None Reported Past Surgical History: Breast Surgery, Cholecystectomy, Hysterectomy, Pacemaker, Tubal Ligation Additional Past Surgical History / Comment(s): PARTIAL LT MASTECTOMY, LEAD WIRE REPLACED (FOR PACEMAKER),colitis Past Anesthesia/Blood Transfusion Reactions: Motion Sickness Type of Cardiac Device: Permanent Pacemaker Device Placement Date:: 03/09/15 Past Psychological History: ADD/ADHD, Anxiety Additional Psychological History / Comment(s): clausterphobia Smoking Status: Current every day smoker Past Alcohol Use History: None Reported Additional Past Alcohol Use History / Comment(s): started smoking AT AGE 14- smokes 1/2 ppd Past Drug Use History: None Reported Additional Drug Use History / Comment(s): medical marijuana RARELY USES - Past Family History Father Family Medical History: No Reported History Additional Family Medical History / Comment(s): Father is alive but she does not know his medical history. Mother Family Medical History: No Reported History Additional Family Medical History / Comment(s): Mother is alive at age 74 with no major medical problems. Brother(s) Family Medical History: No Reported History Additional Family Medical History / Comment(s): The patient has 1 brother with no major medical problems. Sister(s) Family Medical History: No Reported History Additional Family Medical History / Comment(s): Patient has one sister and she has irritable bowel syndrome. Daughter(s) Family Medical History: No Reported History Additional Family Medical History / Comment(s): Patient has one daughter with no major medical problems. Medications and Allergies Home Medications Medication Instructions Recorded Confirmed Type ALPRAZolam [Xanax] 1 mg PO BID PRN 02/10/17 02/17/24 History HYDROcodone/APAP 7.5-325MG [[place] 1 tab PO TID PRN 08/26/18 02/17/24 History 7.5-325] Omeprazole [PriLOSEC] 20 mg PO BID 03/10/19 02/17/24 History Allergies Allergy/AdvReac Type Severity Reaction Status Date / Time bupropion [From Wellbutrin] AdvReac Confusion Verified 02/17/24 13:01 pregabalin [From Lyrica] AdvReac Confusion Verified 02/17/24 13:01 Physical Exam Vitals: Vital Signs Temp Pulse Pulse Resp BP BP Pulse Ox 02/18/24 02:00 99.2 F 70 17 108/61 96 02/17/24 21:25 99.1 F 63 18 111/61 95 02/17/24 20:15 99.9 F H 68 15 106/53 95 02/17/24 16:14 98.1 F 72 16 112/68 100 02/17/24 11:50 97.6 F 64 16 119/73 99 02/17/24 11:46 97.6 F 64 17 119/73 99 Intake and Output 02/17/24 02/18/24 02/18/24 22:59 06:59 14:59 Other: Voiding Method Toilet # Voids 1 1 Weight 54.431 kg Results CBC & Chem 7: 02/17/24 12:36 02/17/24 12:36 Labs: Abnormal Lab Results - Last 24 Hours (Table) 02/17/24 02/17/24 02/18/24 Range/Units 12:36 12:36 06:18 WBC 11.3 H (3.8-10.6) k/uL Neutrophils # 10.2 H (1.3-7.7) k/uL Lymphocytes # 0.7 L (1.0-4.8) k/uL Potassium 3.4 L (3.5-5.1) mmol/L Chloride 108 H (98-107) mmol/L Glucose 139 H (74-99) mg/dL Total Protein 5.8 L (6.3-8.2) g/dL Lipase 22 L (23-300) U/L Urine Ketones 2+ H (Negative) Thrombosis Risk Factor Assmnt - Choose All That Apply Any of the Below Risk Factors Present?: Yes Each Factor Represents 1 point: Age 41-60 years Other Risk Factors: Yes Each Risk Factor Represents 2 Points: Malignancy Other congenital or acquired thrombophilia - If yes, enter type in comment: No Thrombosis Risk Factor Assessment Total Risk Factor Score: 3 Thrombosis Risk Factor Assessment Level: Moderate Risk
[2024-02-18] MEDS: ACETAMINOPHEN TAB 325 MG TAB PO PRN (23:49)
[2024-02-19 07:20] VITALS: BP 107/62
[2024-02-19 10:35] LABS: Basophils # (A) 0.03 X 10*3/uL (0.00-0.10); Basophils % (A) 0.6 %; Eosinophils # (A) 0.07 X 10*3/uL (0.04-0.35); Eosinophils % (A) 1.3 %; HCT 32.5 % (37.2-46.3); HGB 10.7 g/dL (12.0-15.0); Lymphocytes % (A) 32.6 %; MCHC 32.9 g/dL (32.0-37.0); MCV 97.3 FL (80.0-97.0); Mean Platelet Volume 11.1 FL (9.5-12.2); Monocytes # (A) 0.37 X 10*3/uL (0.20-1.00); Monocytes % (A) 7.1 %; NRBC Per 100 WBC 0 X 10*3/uL (0.00-0.01); Neutrophils # (A) 3.03 X 10*3/uL (1.80-7.70); Neutrophils % (A) 58.2 %; Platelet Count 166 X 10*3/uL (140-440); RBC 3.34 X 10*6/uL (4.10-5.20); RDW 12.4 % (11.5-14.5); WBC 5.21 X 10*3/uL (4.50-10.00)
[2024-02-19 10:51] LABS: ALT 46 U/L (8-44); AST 94 U/L (13-35); Albumin 3.5 g/dL (3.8-4.9); Albumin/Globulin Ratio 2.33 Ratio (1.60-3.17); Alkaline Phosphatase 48 U/L (41-126); BUN/Creat Ratio 12.71 Ratio (12.00-20.00); Blood Urea Nitrogen 8.9 mg/dL (9.0-27.0); Calcium 8.3 mg/dL (8.7-10.3); Carbon Dioxide 24.8 mmol/L (21.6-31.8); Chloride 107 mmol/L (96-109); Globulin 1.5 g/dL (1.6-3.3); Glucose 91 mg/dL (70-110); Magnesium 1.7 mg/dL (1.5-2.4); Potassium 3.6 mmol/L (3.5-5.5); Sodium 142 mmol/L (135-145); Total Bilirubin 1.1 mg/dL (0.3-1.2)
[2024-02-19] MEDS: diphenhydrAMINE 25 MG CAP PO STA (11:37)
[2024-02-19] MEDS ORDERED: HYDROmorphone 2 MG/ML 1 ML SYRINGE IVP PRN (12:27)
[2024-02-19 14:02] VITALS: PULSE 53; RESP 15; TEMP 98.3
--- NOTE | 2024-02-19 14:47 | P.DS ---
Providers Date of admission: 02/17/24 16:34 Discharge Diagnosis: Colitis GERD Hypothyroidism History of breast cancer status post radiation and partial left mastectomy, in remission Hospital Course: Patient is a 58-year-old female with a PMH of breast cancer (in remission) s/p radiation and partial left masectomy , CVA/TIA, GERD, hypothyroidism presenting with abdominal pain. The pain woke her up 3am yesterday morning, and had sudden vomiting and diarrhea. Describes the pain as a sudden, sharp/stabbing pain, radiating from right lower quadrant to the left lower quadrant. She states the pain community where kept getting worse and decided to go to the emergency department. She states she has had symptoms similar in the past and was diagnosed with infectious colitis. She has not had a bowel movement since being admitted. Patient denies chest pain, shortness of breath, fever, chills, urinary symptoms. EKG independently interpreted Abdomen/pelvis CT displays colitis throughout the colon most pronounced in the sigmoid colon with small hiatal hernia lipase 22, lactic acid 1.8, WBC 11.3, Hgb 12.4, platelet 195, sodium 139, potassium 3.4, BUN 10, creatinine 0.65 T 99.2 F, ER 70, RR 17, BP 108/61 O2 sat 96% on room air 02/19/2024: Patient seen and examined at bedside. No acute complaints. No acute events overnight. Leukocytosis resolved. Patient states abdominal pain is resolved and was able to tolerate advance solid diet. She is being discharged with Augmentin for 7 days and Protonix. He had psychotic. Patient is to follow-up with PCP and GI. Counseled to have a bland diet for the next week. She is being discharged home. Vital signs reviewed and stable. Physical examination: Vital signs reviewed General: non toxic, no distress, appears at stated age, morbidly obese Derm: no unusual rashes/lesions, warm Head: atraumatic, normocephalic, symmetric Eyes: EOMI, anicteric sclera, pupils equal round reactive to light ENT: Nose and ears atraumatic Neck: No cervical lymphadenopathy, trachea midline, supple Mouth: no lip lesion, mucus membranes moist Cardiovascular: S1S2 reg, no murmur, positive dorsalis pedis pulse bilateral, no edema Lungs: CTA bilateral, no rhonchi, no rales, no accessory muscle use Abdominal: soft, nontender to palpation, no guarding Ext: muscle strength 5 out of 5 in all 4 extremities grossly, no gross muscle atrophy Neuro: CN II-XI grossly intact, no gross focal neuro deficits Psych: Alert, oriented to person, place, and time A total of greater than 30 minutes of time were spent preparing this complex discharge summary. Patient was discharge on February 19, 2024 at 1:38 PM. Expected date of discharge: 02/19/24 Attending physician: Basilio Morelos MD Consults: 02/17/24 16:38 Consult Physician Urgent Consulting Provider: Andreia Conner Consult Reason/Comments: Colitis, intractable abdominal pain, intractable nausea and vomiting Do you want consulting provider notified?: Yes Primary care physician: London Vera Plan - Discharge Summary New Discharge Prescriptions: New Amoxic-Pot Clav 875-125Mg [Augmentin 875-125] 1 tab PO BID 7 Days #14 tab Pantoprazole [Protonix] 40 mg PO DAILY #30 tab Continue ALPRAZolam [Xanax] 1 mg PO BID PRN PRN Reason: Anxiety HYDROcodone/APAP 7.5-325MG [[place] 7.5-325] 1 tab PO TID PRN PRN Reason: Pain Omeprazole [PriLOSEC] 20 mg PO BID Discharge Medication List ALPRAZolam [Xanax] 1 mg PO BID PRN 02/10/17 [History] HYDROcodone/APAP 7.5-325MG [[place] 7.5-325] 1 tab PO TID PRN 08/26/18 [History] Omeprazole [PriLOSEC] 20 mg PO BID 03/10/19 [History] Amoxic-Pot Clav 875-125Mg [Augmentin 875-125] 1 tab PO BID 7 Days #14 tab 02/19/24 [Rx] Pantoprazole [Protonix] 40 mg PO DAILY #30 tab 02/19/24 [Rx] Follow up Appointment(s)/Referral(s): Andreia Conner MD [STAFF PHYSICIAN] - 1 Week London Vera DO [Primary Care Provider] - 1-2 days Patient Instructions/Handouts: Acute Nausea and Vomiting (DC), Colitis (ED) Discharge Disposition: HOME SELF-CARE
--- NOTE | 2024-02-19 16:27 | P.PN ---
Subjective Progress Note Date: 02/19/24 Principal diagnosis: Colitis This is a pleasant 58-year-old white female who presented to the emergency department yesterday evening with complaints of nausea vomiting and abdominal pain. Patient states she started having abdominal pain, nausea vomiting and diarrhea yesterday afternoon. It continued to get worse and she states the pain was so unbearable and presented to the emergency department for further evaluation. She has a history of previous similar symptoms in the past and states she was diagnosed with infectious colitis. Last EGD colonoscopy was in February 2021. EGD with findings of gastritis and LA grade a reflux esophagitis. Colonoscopy was normal. She denies any sick contacts, no recent travel, states no diarrhea today or vomiting just some nausea. Denies any blood in her stool, no hematemesis. 02/19/2024 Patient seen and examined today as a follow-up. She denies any abdominal pain, no nausea or vomiting. No further diarrhea no rectal bleeding. Patient has been tolerating clear liquid diet and would like to start solid food. She has been afebrile. Objective - Vital Signs Vital signs: Vital Signs Temp 97.9 F 02/19/24 07:00 Pulse 43 L 02/19/24 07:00 Resp 16 02/19/24 07:00 BP 107/62 02/19/24 07:00 Pulse Ox 96 02/19/24 07:00 FiO2 Intake & Output 02/18/24 02/19/24 02/19/24 18:59 06:59 18:59 Intake Total 840 840 Output Total 700 Balance 140 840 Intake: Oral 840 840 Output: Urine 700 Other: Voiding Method Toilet Toilet # Voids 2 - Exam General appearance: The patient is alert, oriented, appears in no acute distress. HET: Head is normocephalic and atraumatic. Conjunctiva pink. Sclera anicteric. Neck: Supple without lymphadenopathy. Abdomen: Soft, n mild lower abdominal tenderness, nondistended. Extremities: Normal skin color and turgor. No pedal edema Skin: No rashes, no jaundice Neurological: No focal deficits. Alert and oriented. - Labs CBC & Chem 7: 02/19/24 06:55 02/19/24 06:55 Labs: Abnormal Lab Results - Last 24 Hours (Table) 02/18/24 Range/Units 09:33 C-Reactive Protein 1.9 H (<1.0) mg/dL Assessment and Plan (1) Colitis Narrative/Plan: 58-year-old female with abdominal pain nausea and vomiting nonbloody presenting to the emergency department with CT scan showing thickening of the colon suggestive of colitis. Likely dealing with infectious colitis as patient did present with leukocytosis and low-grade fever. Will treat with IV antibiotics and symptomatic relief. Likely infectious colitis, symptoms resolving with antibiotics. Current Visit: Yes Status: Acute Code(s): K52.9 - NONINFECTIVE GASTRO ENTERITIS AND COLITIS, UNSPECIFIED SNOMED Code(s): 54864705 Plan: 1. Continue symptomatic and supportive care 2. Advance to regular diet. 3. Recommend Augmentin at discharge 4. Pain medication as needed 5. Antiemetics as needed 6. Protonix 40 mg daily for GI prophylaxis 7. No plans on colonoscopy at this time 8. If patient tolerates regular diet for lunch may be cleared for discharge from gastroenterology Thank you for this consultation, we will continue to follow. Dr. Paco Conner I agree with the dictator's note, documented as a scribe by Lucero Bolton.
== END 2024-02-19 16:36 | disposition home or self-care (01) ==
LOC: EC 11:29 → 6NMEDSUR 16:34
PROVIDERS: ADMIT Internal Medicine; ATTEND Internal Medicine
DX: A09 Infectious gastroenteritis and colitis, unspecified (principal); K44.9 Diaphragmatic hernia without obstruction or gangrene; E03.9 Hypothyroidism, unspecified; E87.6 Hypokalemia; K21.9 Gastro-esophageal reflux disease without esophagitis; F41.9 Anxiety disorder, unspecified; F90.9 Attention-deficit hyperactivity disorder, unspecified type; F17.210 Nicotine dependence, cigarettes, uncomplicated; Z79.899 Other long term (current) drug therapy; Z92.3 Personal history of irradiation; Z85.3 Personal history of malignant neoplasm of breast; Z88.8 Allergy status to other drugs, medicaments and biological substances; Z95.0 Presence of cardiac pacemaker; Z71.6 Tobacco abuse counseling
CPT/HCPCS: 96376 ×3; 96365; 96366 ×2; 96375 ×2; 96361; 96372; 99285; 36415; 93005; 80053 ×2; 85652; 82150; 83605; 83690; 83735; 85025 ×2; 85610; 86140; 81003; 74177; G0378 ×3; J2543 ×2; J0500; J2765; J2405; J1171 ×3; J1885 ×2; Q9967; J2470 ×2

== ENCOUNTER 2024-04-26 19:00 | Emergency (ER) | payer MEDICARE ==
[2024-04-26 19:14] VITALS: RESP 18
--- NOTE | 2024-04-26 19:51 | ED ---
General Adult HPI - General Chief complaint: Allergic Reaction Stated complaint: Facial swelling Time Seen by Provider: 04/26/24 19:40 Source: patient, RN notes reviewed Mode of arrival: ambulatory Limitations: no limitations - History of Present Illness Initial comments: 58-year-old female presents to the emergency department for evaluation of bilateral eye swelling. She states that her face feels tight. She reports that she has been dealing with UTI symptoms and has been on Bactrim since Friday. She does report taking this in the past but it has been a long time. She also reports having an antibiotic shot at her PCPs office today. She denies any shortness of breath, swelling of her tongue. - Related Data Home Medications Medication Instructions Recorded Confirmed ALPRAZolam [Xanax] 1 mg PO BID PRN 02/10/17 02/17/24 HYDROcodone/APAP 7.5-325MG [[place] 1 tab PO TID PRN 08/26/18 02/17/24 7.5-325] Omeprazole [PriLOSEC] 20 mg PO BID 03/10/19 02/17/24 Previous Rx's Medication Instructions Recorded Amoxic-Pot Clav 875-125Mg 1 tab PO BID 7 Days #14 tab 02/19/24 [Augmentin 875-125] Ondansetron [Zofran] 4 mg PO Q12HR PRN #14 tab 02/19/24 Pantoprazole [Protonix] 40 mg PO DAILY #30 tab 02/19/24 Cephalexin [Keflex] 500 mg PO BID #14 cap 04/26/24 predniSONE 50 mg PO DAILY #5 tab 04/26/24 Allergies Allergy/AdvReac Type Severity Reaction Status Date / Time bupropion [From Wellbutrin] AdvReac Confusion Verified 04/26/24 19:14 pregabalin [From Lyrica] AdvReac Confusion Verified 04/26/24 19:14 Review of Systems ROS Statement: Those systems with pertinent positive or pertinent negative responses have been documented in the HPI. ROS Other: All systems not noted in ROS Statement are negative. Past Medical History Past Medical History: Cancer, CVA/TIA, Fibromyalgia, GERD/Reflux, Osteoarthritis (OA), Thyroid Disorder Additional Past Medical History / Comment(s): HYPOTHYROID, LT Breast CA- HX radiation, lumpectomy, POSSIBLE MIGRAINE HEADACHES ,TIA . PFO CLOSURE -(HOLE IN HEART CLOSED ) History of Any Multi-Drug Resistant Organisms: None Reported Past Surgical History: Breast Surgery, Cholecystectomy, Hysterectomy, Pacemaker, Tubal Ligation Additional Past Surgical History / Comment(s): PARTIAL LT MASTECTOMY, LEAD WIRE REPLACED (FOR PACEMAKER),colitis Past Anesthesia/Blood Transfusion Reactions: Motion Sickness Type of Cardiac Device: Permanent Pacemaker Device Placement Date:: 03/09/15 Past Psychological History: ADD/ADHD, Anxiety Smoking Status: Current every day smoker Past Alcohol Use History: None Reported Past Drug Use History: None Reported - Past Family History Father Family Medical History: No Reported History Additional Family Medical History / Comment(s): Father is alive but she does not know his medical history. Mother Family Medical History: No Reported History Additional Family Medical History / Comment(s): Mother is alive at age 74 with no major medical problems. Brother(s) Family Medical History: No Reported History Additional Family Medical History / Comment(s): The patient has 1 brother with no major medical problems. Sister(s) Family Medical History: No Reported History Additional Family Medical History / Comment(s): Patient has one sister and she has irritable bowel syndrome. Daughter(s) Family Medical History: No Reported History Additional Family Medical History / Comment(s): Patient has one daughter with no major medical problems. General Exam - General Exam Comments Initial Comments: Visual Physical Exam Vital signs reviewed General: Well-appearing, nontoxic, no acute distress. Head: Normocephalic, atraumatic Eyes: PERRLA, EOMI ENT: Airway patent Chest: Nonlabored breathing Skin: No visual rash, normal skin tone Neuro: Alert and oriented 3 Musculoskeletal: No gross abnormalities Limitations: no limitations General appearance: alert, in no apparent distress Head exam: Present: atraumatic, normocephalic, normal inspection Eye exam: Present: PERRL, EOMI, periorbital swelling (Mild swelling to the upper eyelid). Absent: scleral icterus, conjunctival injection ENT exam: Present: normal exam, mucous membranes moist Respiratory exam: Present: normal lung sounds bilaterally. Absent: respiratory distress, wheezes, rales, rhonchi, stridor Cardiovascular Exam: Present: regular rate, normal rhythm, normal heart sounds. Absent: systolic murmur, diastolic murmur, rubs, gallop, clicks Extremities exam: Present: normal inspection, full ROM, normal capillary refill. Absent: tenderness, pedal edema, joint swelling, calf tenderness Back exam: Present: normal inspection Neurological exam: Present: alert, oriented X3 Psychiatric exam: Present: normal affect, normal mood Skin exam: Present: warm, dry, intact, normal color. Absent: rash Course Vital Signs 04/26/24 04/26/24 19:12 21:44 Temperature 98.4 F 97.6 F Pulse Rate 76 60 Respiratory 18 18 Rate Blood Pressure 106/72 105/71 O2 Sat by Pulse 99 100 Oximetry Medical Decision Making - Medical Decision Making Quick note preformed and electronically signed by Hazel Merrill PA-C Was pt. sent in by a medical professional or institution (KENDY Bray, REFINERY SUPERINTENDENT, urgent care, hospital, or longterm...) When possible be specific @ -No Did you speak to anyone other than the patient for history (EMS, parent, family, police, friend...)? What history was obtained from this source @ -No Did you review nursing and triage notes (agree or disagree)? Why? @ -I reviewed and agree with nursing and triage notes Were old charts reviewed (outside hosp., previous admission, EMS record, old EKG, old radiological studies, urgent care reports/EKG's, longterm records)? Report findings @ -No old charts were reviewed Differential Diagnosis (chest pain, altered mental status, abdominal pain women, abdominal pain men, vaginal bleeding, weakness, fever, dyspnea, syncope, headache, dizziness, GI bleed, back pain, seizure, CVA, palpatations, mental health, musculoskeletal)? @ -Blepharitis, allergic reaction, this list is not all inclusive EKG interpreted by me (3pts min.). @ -None X-rays interpreted by me (1pt min.). @ -None done CT interpreted by me (1pt min.). @ -None done U/S interpreted by me (1pt. min.). @ -None done What testing was considered but not performed or refused? (CT, X-rays, U/S, labs)? Why? @ -None What meds were considered but not given or refused? Why? @ -None Did you discuss the management of the patient with other professionals (professionals i.e. KENDY Bray, REFINERY SUPERINTENDENT, lab, RT, psych nurse, sexual assault social worker, gas desulfurizer, teacher, parking enforcement officer, leather case finisher)? Give summary @ -No Was smoking cessation discussed for >3mins.? @ -No Was critical care preformed (if so, how long)? @ -No Were there social determinants of health that impacted care today? How? (Homelessness, low income, unemployed, alcoholism, drug addiction, transportation, low edu. Level, literacy, decrease access to med. care, custodial, rehab)? @ -No Was there de-escalation of care discussed even if they declined (Discuss DNR or withdrawal of care, Hospice)? DNR status @ -No What co-morbidities impacted this encounter? (DM, HTN, Smoking, COPD, CAD, Cancer, CVA, ARF, Chemo, Hep., AIDS, mental health diagnosis, sleep apnea, morbid obesity)? @ -None Was patient admitted / discharged? Hospital course, mention meds given and rout e, prescriptions, significant lab abnormalities, going to OR and other pertinent info. @ -Discharge. Patient presented emergency department for evaluation of eyelid swelling and itching. She reports that this started today. She does note being on antibiotic for UTI.UA was obtained and shows large leukocyte esterase, 23 WBCs but also contaminated with 30 squamous epithelial cells. Patient's an tibiotic will be switched. She was provided an allergy cocktail in the ED. She reports improvement of symptoms. She will be discharged home. She is understanding agreeable plan. Patient stable for discharge. Case discussed with Dr. Bermudez Undiagnosed new problem with uncertain prognosis? @ -No Drug Therapy requiring intensive monitoring for toxicity (Heparin, Nitro, Insulin, Cardizem)? @ -No Were any procedures done? @ -No Diagnosis/symptom? @ -Generalized allergic reaction Acute, or Chronic, or Acute on Chronic? @ -Acute Uncomplicated (without systemic symptoms) or Complicated (systemic symptoms)? @ -Uncomplicated Side effects of treatment? @ -No Exacerbation, Progression, or Severe Exacerbation? @ -No Poses a threat to life or bodily function? How? (Chest pain, USA, MD, pneumonia, PE, COPD, DKA, ARF, appy, cholecystitis, CVA, Diverticulitis, Homicidal, Suicidal, threat to staff... and all critical care pts) @ -No - Lab Data Lab Results 04/26/24 Range/Units 20:02 Urine Color Yellow Urine Appearance Cloudy H (Clear) Urine pH 6.0 (5.0-8.0) Ur Specific [place] 1.031 (1.001-1.035) Urine Protein 1+ H (Negative) Urine Glucose (UA) Negative (Negative) Urine Ketones Negative (Negative) Urine Blood Negative (Negative) Urine Nitrite Negative (Negative) Urine Bilirubin Negative (Negative) Urine Urobilinogen 2.0 (<2.0) mg/dL Ur Leukocyte Esterase Large H (Negative) Urine RBC 3 (0-5) /hpf Urine WBC 23 H (0-5) /hpf Ur Squamous Epith Cells 30 H (0-4) /hpf Calcium Oxalate Crystal Many H (None) /hpf Urine Mucus Moderate H (None) /hpf Disposition Clinical Impression: UTI (urinary tract infection), Allergic reaction Disposition: HOME SELF-CARE Condition: Stable Instructions (If sedation given, give patient instructions): General Allergic Reaction (ED) Additional Instructions: Please follow up with your primary care provider. Return to the emergency department for new or worsening symptoms. Prescriptions: Cephalexin [Keflex] 500 mg PO BID #14 cap predniSONE 50 mg PO DAILY #5 tab Is patient prescribed a controlled substance at d/c from ED?: No Referrals: London Vera DO [Primary Care Provider] - 1-2 days
[2024-04-26 20:19] LABS: Appearance,Urine Cloudy (Clear); Bilirubin,Urine Negative (Negative); Blood,Urine Negative (Negative); Calcium Oxalate Crystals,Urine Many /hpf; Color,Urine Yellow; Glucose,Urine (UA) Negative (Negative); Ketones,Urine Negative (Negative); Leukocyte Esterase,Urine Large (Negative); Mucus,Urine Moderate /hpf; Nitrite,Urine Negative (Negative); Protein,Urine 1+ (Negative); RBC,Urine 3 /hpf (0-5); Specific Gravity,Urine 1.031 (1.001-1.035); Squamous Epithelial Cell,Urine 30 /hpf (0-4); WBC,Urine 23 /hpf (0-5)
[2024-04-26] MEDS: FAMOTIDINE 20 MG TAB PO STA (20:42)
[2024-04-26] MEDS: methylPREDNISolone SOD SUCCI 125 MG/2 ML VIAL IM ONE (20:42)
[2024-04-26] MEDS: diphenhydrAMINE 50 MG CAP PO STA (20:42)
[2024-04-26 21:45] VITALS: BP 105/71; PULSE 60; TEMP 97.6
== END 2024-04-26 21:45 | disposition home or self-care (01) ==
LOC: EC 19:00
DX: T78.40XA Allergy, unspecified, initial encounter (principal); N39.0 Urinary tract infection, site not specified; F17.200 Nicotine dependence, unspecified, uncomplicated; Z88.8 Allergy status to other drugs, medicaments and biological substances
CPT/HCPCS: 81001; 87086; 99283; 96372; J2919

== ENCOUNTER 2024-11-23 14:21 | Observation (INO) | payer MEDICARE, OTHER ==
[2024-11-23 14:51] LABS: Basophils # (A) 0.06 10*3/uL (0.00-0.10); Basophils % (A) 0.5 %; Eosinophils # (A) 0.05 10*3/uL (0.04-0.35); Eosinophils % (A) 0.4 %; HCT 42.0 % (37.2-46.3); HGB 15.1 g/dL (12.0-15.0); Lymphocytes # (A) 2.44 10*3/uL (0.90-5.00); Lymphocytes % (A) 21.1 %; MCH 30.9 pg (27.0-32.0); MCHC 36.0 g/dL (32.0-37.0); MCV 86.1 fL (80.0-97.0); Monocytes # (A) 0.76 10*3/uL (0.20-1.00); Monocytes % (A) 6.6 %; Neutrophils # (A) 8.21 10*3/uL (1.80-7.70); Neutrophils % (A) 71.2 %; Platelet Count 275 10*3/uL (140-440); RBC 4.88 10*6/uL (4.10-5.20); RDW 11.7 % (11.5-14.5); WBC 11.54 10*3/uL (4.50-10.00)
[2024-11-23 15:07] LABS: ALT 26 U/L (4-34); African American GFR (CKD) >90 (>60 ml/min/1.73 sqM); Albumin 4.4 g/dL (3.5-5.0); Amylase 41 U/L (30-110); Anion Gap 12 mmol/L; Blood Urea Nitrogen 22 mg/dL (7-17); Calcium 9.2 mg/dL (8.4-10.2); Carbon Dioxide 27 mmol/L (22-30); Chloride 92 mmol/L (98-107); Glucose 106 mg/dL (74-99); Lipase 25 U/L (23-300); Non-African American GFR(CKD) >90 (>60 ml/min/1.73 sqM); Sodium 131 mmol/L (137-145); Total Protein 6.9 g/dL (6.3-8.2)
[2024-11-23 15:12] LABS: AST 31 U/L (14-36); Alkaline Phosphatase 53 U/L (38-126); Potassium 3.8 mmol/L (3.5-5.1)
--- NOTE | 2024-11-23 16:24 | ED ---
Abdominal Pain HPI - General Source: patient, family Mode of arrival: ambulatory Limitations: no limitations <Michael Almanza - Last Filed: 11/23/24 16:23> - General Source: patient, family, RN notes reviewed, old records reviewed Mode of arrival: ambulatory Limitations: no limitations - History of Present Illness MD Complaint: abdominal pain, other (Nausea vomiting) -: days(s) Location: diffuse Migration to: epigastric Severity: moderate, severe Severity scale (1-10): 10 Quality: fullness, sharp Consistency: constant Improves With: nothing Worsens With: nothing Associated Symptoms: nausea, vomiting, diarrhea Treatments Prior to Arrival: other <Kerwin Gonzalez - Last Filed: 11/23/24 21:53> - General Chief Complaint: Abdominal Pain Stated Complaint: Back and abd pain Time Seen by Provider: 11/23/24 16:23 - History of Present Illness Initial Comments: Quick note: 58-year-old female presenting with chief complaint of nausea and vomiting. Patient states symptoms have been ongoing for almost 1 week. She also admits to diarrhea. States she sees having diffuse abdominal pain. States that she was seen at a hospital in [place] and was told she had gastritis. States her symptoms have not improved. (Michael Almanza) This is a 58 female to ER for colitis intractable abdominal pain intractable nausea vomiting history of same (Kerwin Gonzalez) - Related Data Home Medications Medication Instructions Recorded Confirmed ALPRAZolam [Xanax] 1 mg PO BID PRN 02/10/17 02/17/24 HYDROcodone/APAP 7.5-325MG [[place] 1 tab PO TID PRN 08/26/18 02/17/24 7.5-325] Omeprazole [PriLOSEC] 20 mg PO BID 03/10/19 02/17/24 Previous Rx's Medication Instructions Recorded Amoxic-Pot Clav 875-125Mg 1 tab PO BID 7 Days #14 tab 02/19/24 [Augmentin 875-125] Ondansetron [Zofran] 4 mg PO Q12HR PRN #14 tab 02/19/24 Pantoprazole [Protonix] 40 mg PO DAILY #30 tab 02/19/24 Cephalexin [Keflex] 500 mg PO BID #14 cap 04/26/24 predniSONE 50 mg PO DAILY #5 tab 04/26/24 Allergies Allergy/AdvReac Type Severity Reaction Status Date / Time bupropion [From Wellbutrin] AdvReac Confusion Verified 04/26/24 19:14 pregabalin [From Lyrica] AdvReac Confusion Verified 04/26/24 19:14 Review of Systems ROS Other: All systems not noted in ROS Statement are negative. <Michael Almanza - Last Filed: 11/23/24 16:23> ROS Other: All systems not noted in ROS Statement are negative. <Kerwin Gonzalez - Last Filed: 11/23/24 21:53> ROS Statement: Those systems with pertinent positive or pertinent negative responses have been documented in the HPI. Past Medical History Past Medical History: Cancer, CVA/TIA, Fibromyalgia, GERD/Reflux, Osteoarthritis (OA), Thyroid Disorder Additional Past Medical History / Comment(s): HYPOTHYROID, LT Breast CA- HX radiation, lumpectomy, POSSIBLE MIGRAINE HEADACHES ,TIA . PFO CLOSURE -(HOLE IN HEART CLOSED ) History of Any Multi-Drug Resistant Organisms: None Reported Past Surgical History: Breast Surgery, Cholecystectomy, Hysterectomy, Pacemaker, Tubal Ligation Additional Past Surgical History / Comment(s): PARTIAL LT MASTECTOMY, LEAD WIRE REPLACED (FOR PACEMAKER),colitis Past Anesthesia/Blood Transfusion Reactions: Motion Sickness Type of Cardiac Device: Permanent Pacemaker Device Placement Date:: 03/09/15 Past Psychological History: ADD/ADHD, Anxiety Smoking Status: Current every day smoker Past Alcohol Use History: None Reported Past Drug Use History: None Reported - Past Family History Father Family Medical History: No Reported History Additional Family Medical History / Comment(s): Father is alive but she does not know his medical history. Mother Family Medical History: No Reported History Additional Family Medical History / Comment(s): Mother is alive at age 74 with no major medical problems. Brother(s) Family Medical History: No Reported History Additional Family Medical History / Comment(s): The patient has 1 brother with no major medical problems. Sister(s) Family Medical History: No Reported History Additional Family Medical History / Comment(s): Patient has one sister and she has irritable bowel syndrome. Daughter(s) Family Medical History: No Reported History Additional Family Medical History / Comment(s): Patient has one daughter with no major medical problems. <Michael Almanza - Last Filed: 11/23/24 16:23> General Exam Limitations: no limitations <Michael Almanza - Last Filed: 11/23/24 16:23> General appearance: alert, in no apparent distress Head exam: Present: atraumatic, normocephalic, normal inspection Eye exam: Present: normal appearance, PERRL, EOMI. Absent: scleral icterus, conjunctival injection, periorbital swelling ENT exam: Present: normal exam, mucous membranes moist Neck exam: Present: normal inspection. Absent: tenderness, meningismus, lymphadenopathy Respiratory exam: Present: normal lung sounds bilaterally. Absent: respiratory distress, wheezes, rales, rhonchi, stridor Cardiovascular Exam: Present: regular rate, normal rhythm, normal heart sounds. Absent: systolic murmur, diastolic murmur, rubs, gallop, clicks GI/Abdominal exam: Present: soft, normal bowel sounds. Absent: distended, tend erness, guarding, rebound, rigid Extremities exam: Present: normal inspection, full ROM, normal capillary refill. Absent: tenderness, pedal edema, joint swelling, calf tenderness Back exam: Present: normal inspection Neurological exam: Present: alert, oriented X3, CN II-XII intact Psychiatric exam: Present: normal affect, normal mood Skin exam: Present: warm, dry, intact, normal color. Absent: rash <Kerwin Gonzalez - Last Filed: 11/23/24 21:53> - General Exam Comments Initial Comments: Visual Physical Exam Vital signs reviewed General: Well-appearing, nontoxic, no acute distress. Head: Normocephalic, atraumatic Eyes: PERRLA, EOMI ENT: Airway patent Chest: Nonlabored breathing Skin: No visual rash, normal skin tone Neuro: Alert and oriented 3 Musculoskeletal: No gross abnormalities (Michael Almanza) Course <Kerwin Gonzalez - Last Filed: 11/23/24 21:53> Vital Signs 11/23/24 11/23/24 14:31 20:00 Temperature 98.2 F 98.3 F Pulse Rate 82 84 Respiratory 20 18 Rate Blood Pressure 101/63 106/73 O2 Sat by Pulse 98 99 Oximetry - Reevaluation(s) Reevaluation #1: 11/23/24 21:52 Medical records reviewed (Kerwin Gonzalez) Reevaluation #2: 11/23/24 21:52 Still with pain with intractable nausea vomiting (Kerwin Gonzalez) Reevaluation #3: 11/23/24 21:52 Patient informed of results and questions answered (Kerwin Gonzalez) Reevaluation #4: Was pt. sent in by a medical professional or institution (KENDY Bray, AUDIO VISUAL ARTS DIRECTOR, urgent care, hospital, or long-term...) When possible be specific @ -no Did you speak to anyone other than the patient for history (EMS, parent, family, police, friend...)? What history was obtained from this source @ -no Did you review nursing and triage notes (agree or disagree)? Why? @ -agree Are old charts reviewed (outside hosp., previous admission, EMS record, old EKG, old radiological studies, urgent care reports/EKG's, long-term records)? Report findings @ -yes Differential Diagnosis (chest pain, altered mental status, abdominal pain women, abdominal pain men, vaginal bleeding, weakness, fever, dyspnea, syncope, headache, dizziness, GI bleed, back pain, seizure, CVA, palpatations, mental health, musculoskeletal)? @ -prior EKG interpreted by me (3pts min.). @ -yes X-rays interpreted by me (1pt min.). @ -yes negative for acute disease CT interpreted by me (1pt min.). @ -no U/S interpreted by me (1pt. min.). @ -no What testing was considered but not performed or refused? (CT, X-rays, U/S, labs)? Why? @ -none What meds were considered but not given or refused? Why? @ -none Did you discuss the management of the patient with other professionals (professionals i.e. KENDY Bray, AUDIO VISUAL ARTS DIRECTOR, lab, RT, psych nurse, social work manager, cooler conveyor loader, teacher, wildlife officer, correctional counselor/case manager)? Give summary @ -no Was smoking cessation discussed for >3mins.? @ -no Was critical care preformed (if so, how long)? @ -no Were there social determinants of health that impacted care today? How? (Homelessness, low income, unemployed, alcoholism, drug addiction, transportation, low edu. Level, literacy, decrease access to med. care, fdc, rehab)? @ -none Was there de-escalation of care discussed even if they declined (Discuss DNR or withdrawal of care, Hospice)? DNR status @ -no What co-morbidities impacted this encounter? (DM, HTN, Smoking, COPD, CAD, Cancer, CVA, ARF, Chemo, Hep., AIDS, mental health diagnosis, sleep apnea, morbid obesity)? @ -none Was patient admitted / discharged? Hospital course, mention meds given and route, prescriptions, significant lab abnormalities, going to OR and other pertinent info. @ - Undiagnosed new problem with uncertain prognosis? @ -no Drug Therapy requiring intensive monitoring for toxicity (Heparin, Nitro, Insulin, Cardizem)? @ -no Were any procedures done? @ -no Diagnosis/symptom? @ - Acute, or Chronic, or Acute on Chronic? @ -Acute Uncomplicated (without systemic symptoms) or Complicated (systemic symptoms)? @ -Complicated Side effects of treatment? @ -no Exacerbation, Progression, or Severe Exacerbation? @ -exacerbation Poses a threat to life or bodily function? How? (Chest pain, USA, MA, pneumonia, PE, COPD, DKA, ARF, appy, cholecystitis, CVA, Diverticulitis, Homicidal, Suicidal, threat to staff... and all critical care pts) @ -yes (Kerwin Gonzalez) Reevaluation #5: Differential Abdominal Pain Women: Appendicitis, Cholecystitis, diverticulosis, ischemic bowel, pancreatitis, hepatitis, UTI, gastroenteritis, AAA, incarcerated hernia, bowel obstruction, constipation, inflammatory bowel, hepatitis, peptic ulcer disease, splenic infarction, perforated viscus, vulvitis, ovarian torsion, PID, kidney stone, placenta abruption, this is not meant to be an all-inclusive list (Kerwin Gonzalez) - Consultations Consultation #1: Spoke with [facility] [place] who agrees to admit this patient (Kerwin Gonzalez) Medical Decision Making - Lab Data Result diagrams: 11/23/24 14:45 11/23/24 14:45 <Michael Almanza - Last Filed: 11/23/24 16:23> - Lab Data Result diagrams: 11/23/24 14:45 11/23/24 14:45 - Radiology Data Radiology results: pending <Kerwin Gonzalez - Last Filed: 11/23/24 21:53> - Medical Decision Making I performed the quick note portion of this visit, electronically signed Michael Almanza PA-C (Michael Almanza) 58 female be admitted for intractable nausea vomiting abdominal pain (Kerwin Gonzalez) - Lab Data Lab Results 11/23/24 11/23/24 Range/Units 14:45 14:45 WBC 11.54 H (4.50-10.00) 10*3/uL RBC 4.88 (4.10-5.20) 10*6/uL Hgb 15.1 H (12.0-15.0) g/dL Hct 42.0 (37.2-46.3) % MCV 86.1 (80.0-97.0) fL MCH 30.9 (27.0-32.0) pg MCHC 36.0 (32.0-37.0) g/dL Plt Count 275 (140-440) 10*3/uL MPV 10.2 (9.5-12.2) fL Immature Gran % (Auto) 0.2 % Neutrophils % 71.2 % Lymphocytes % 21.1 % Monocytes % 6.6 % Eosinophils % 0.4 % Basophils % 0.5 % Immature Gran # 0.02 (0.00-0.04) 10*3/uL Neutrophils # 8.21 H (1.80-7.70) 10*3/uL Lymphocytes # 2.44 (0.90-5.00) 10*3/uL Monocytes # 0.76 (0.20-1.00) 10*3/uL Eosinophils # 0.05 (0.04-0.35) 10*3/uL Basophils # 0.06 (0.00-0.10) 10*3/uL Sodium 131 L (137-145) mmol/L Potassium 3.8 (3.5-5.1) mmol/L Chloride 92 L (98-107) mmol/L Carbon Dioxide 27 (22-30) mmol/L Anion Gap 12 mmol/L BUN 22 H (7-17) mg/dL Creatinine 0.73 (0.52-1.04) mg/dL Est GFR (CKD-EPI)AfAm >90 (>60 ml/min/1.73 sqM) Est GFR (CKD-EPI)NonAf >90 (>60 ml/min/1.73 sqM) Glucose 106 H (74-99) mg/dL Calcium 9.2 (8.4-10.2) mg/dL Total Bilirubin 1.0 (0.2-1.3) mg/dL AST 31 (14-36) U/L ALT 26 (4-34) U/L Alkaline Phosphatase 53 (38-126) U/L Total Protein 6.9 (6.3-8.2) g/dL Albumin 4.4 (3.5-5.0) g/dL Amylase 41 (30-110) U/L Lipase 25 (23-300) U/L Disposition <Michael Almanza - Last Filed: 11/23/24 16:23> Is patient prescribed a controlled substance at d/c from ED?: No Time of Disposition: 19:40 <Kerwin Gonzalez - Last Filed: 11/23/24 21:53> Clinical Impression: Dehydration, Intractable nausea and vomiting, Nausea vomiting and diarrhea, Intractable abdominal pain Disposition: ADMITTED IP TO THIS HOSP Condition: Fair
[2024-11-23] MEDS ORDERED: NALOXONE 0.4 MG/ML 1 ML VIAL IV PRN (19:43)
[2024-11-23 20:01] VITALS: TEMP 98.3
[2024-11-23] MEDS: DEXTROSE 5%-0.45% NACL 1,000 ML IV SCH (21:58)
[2024-11-23] MEDS: HYDROmorphone 1 MG/ML 1 ML SYRINGE IVP PRN (21:58)
[2024-11-23] MEDS: PANTOPRAZOLE 40 MG/10 ML VIAL IV SCH (21:58)
[2024-11-23 22:40] LABS: Bilirubin,Urine Negative (Negative); Blood,Urine Negative (Negative); Color,Urine Light Yellow; Glucose,Urine (UA) Negative (Negative); Hyaline Casts,Urine 2 /lpf (0-2); Ketones,Urine 2+ (Negative); Leukocyte Esterase,Urine Small (Negative); Mucus,Urine Many /hpf; Nitrite,Urine Negative (Negative); PH, Urine 6.0 (5.0-8.0); Protein,Urine Negative (Negative); RBC,Urine 3 /hpf (0-5); Specific Gravity,Urine 1.014 (1.001-1.035); Squamous Epithelial Cell,Urine 8 /hpf (0-4); Urobilinogen,Urine <2.0 mg/dL (<2.0); WBC,Urine 5 /hpf (0-5)
[2024-11-23 23:51] VITALS: BP 107/72; PULSE 65; RESP 16
[2024-11-24] MEDS: ONDANSETRON 4 MG/2 ML VIAL IVP PRN (01:09)
[2024-11-24] MEDS ORDERED: DICYCLOMINE 20 MG TAB PO PRN (07:29)
[2024-11-24 07:30] LABS: Basophils # (A) 0.07 10*3/uL (0.00-0.10); Basophils % (A) 0.9 %; Eosinophils # (A) 0.15 10*3/uL (0.04-0.35); Eosinophils % (A) 1.8 %; HCT 37.6 % (37.2-46.3); HGB 13.3 g/dL (12.0-15.0); Lymphocytes # (A) 3.30 10*3/uL (0.90-5.00); Lymphocytes % (A) 40.1 %; MCH 30.9 pg (27.0-32.0); MCHC 35.4 g/dL (32.0-37.0); MCV 87.2 fL (80.0-97.0); Monocytes # (A) 0.61 10*3/uL (0.20-1.00); Monocytes % (A) 7.4 %; Neutrophils # (A) 4.09 10*3/uL (1.80-7.70); Neutrophils % (A) 49.7 %; Platelet Count 244 10*3/uL (140-440); RBC 4.31 10*6/uL (4.10-5.20); RDW 11.6 % (11.5-14.5); WBC 8.23 10*3/uL (4.50-10.00)
[2024-11-24 08:31] LABS: ALT 23 U/L (4-34); AST 24 U/L (14-36); African American GFR (CKD) >90 (>60 ml/min/1.73 sqM); Albumin 3.8 g/dL (3.5-5.0); Alkaline Phosphatase 58 U/L (38-126); Anion Gap 9 mmol/L; Blood Urea Nitrogen 15 mg/dL (7-17); Calcium 8.9 mg/dL (8.4-10.2); Carbon Dioxide 31 mmol/L (22-30); Chloride 94 mmol/L (98-107); Glucose 101 mg/dL (74-99); Magnesium 1.9 mg/dL (1.6-2.3); Non-African American GFR(CKD) 90 (>60 ml/min/1.73 sqM); Potassium 3.0 mmol/L (3.5-5.1); Sodium 134 mmol/L (137-145); Total Protein 5.9 g/dL (6.3-8.2)
[2024-11-24] MEDS ORDERED: Potassium Replacement Protocol 1 EACH MISC MISCELLANE PRN (09:40)
--- NOTE | 2024-11-24 09:44 | P.CONS ---
History of Present Illness - Reason for Consult Consult date: 11/24/24 Colitis Requesting physician: Kerwin Gonzalez - Chief Complaint Abdominal pain, nausea and vomiting - History of Present Illness This a pleasant 58-year-old female with a history of cholecystectomy in 2014 with recurrent episodes of abdominal pain and nausea and vomiting, fibromyalgia, GERD, osteoarthritis, thyroid disorder, permanent pacemaker, and breast cancer w ho presented to the emergency department with complaints of abdominal pain nausea and vomiting. Patient states this is recurrent and he has been going on over the last 10 years intermittently where she describes them as flareups where she will get abdominal pain mostly in the epigastric area followed by nausea and vomiting. Apparently patient had an episode last week Friday and she was in [place] she went to the emergency department where she was treated with some pain medication IV fluids and sent home with Naveed. States that it got better for couple of days and then started with nausea and vomiting and pain again yesterday. States she had multiple episodes of emesis last 1 was yesterday morning around 4 AM. Patient was admitted to observation given IV fluids and antiemetics. She has been tolerating clear liquid diet. States abdominal pain nausea and vomiting have improved. She states she had a little bit of diarrhea but nothing significant. No blood in her stool and no hematemesis. Last EGD colonoscopy was in 2020 for same complaints. Upper endoscopy revealed mild antral gastritis and LA grade a reflux esophagitis. Colonoscopy with the normal limits with no evidence of colitis or colorectal neoplasia. Patient states that she has been taking omeprazole but it has not been working well. Has followed with GI office thought to have possible IBS. Patient also does admit to increased stress and anxiety. States that she feels that stress does trigger symptoms at times. She also does state that during her last ER visit last week they did inquire about marijuana use and she states that she does use marijuana regularly although not daily. They suspected possible cannabinoid hyperemesis. Review of Systems REVIEW OF SYSTEMS: CARDIOPULMONARY: No chest pain or shortness of breath. Gastrointestinal: Abdominal pain associated with nausea and vomiting, now resolved. No hematemesis, coffee-ground emesis. No rectal bleeding, or melena. GENITOURINARY: No dysuria or hematuria. MUSCULOSKELETAL: Reports normal range of motion., Chronic joint pain, neck pain and back pain. SKIN: No rashes. No jaundice. ENDOCRINE: No chills, fevers. No excessive weight gain or loss. No polydipsia or polyuria. PSYCHIATRIC: Unremarkable. NEUROLOGY: No change in mental status. Denies dizziness, headache. ENT: Vision unremarkable. CONSTITUTIONAL: No recent weight loss. No fever, chills, night sweats. Past Medical History Past Medical History: Cancer, CVA/TIA, Fibromyalgia, GERD/Reflux, Osteoarthritis (OA), Thyroid Disorder Additional Past Medical History / Comment(s): HYPOTHYROID, LT Breast CA- HX radiation, lumpectomy, POSSIBLE MIGRAINE HEADACHES ,TIA . PFO CLOSURE -(HOLE IN HEART CLOSED ) History of Any Multi-Drug Resistant Organisms: None Reported Past Surgical History: Breast Surgery, Cholecystectomy, Hysterectomy, Pacemaker, Tubal Ligation Additional Past Surgical History / Comment(s): PARTIAL LT MASTECTOMY, LEAD WIRE REPLACED (FOR PACEMAKER),colitis Past Anesthesia/Blood Transfusion Reactions: Motion Sickness Type of Cardiac Device: Permanent Pacemaker Device Placement Date:: 03/09/15 Past Psychological History: ADD/ADHD, Anxiety Additional Psychological History / Comment(s): clausterphobia Smoking Status: Current every day smoker Past Alcohol Use History: None Reported Additional Past Alcohol Use History / Comment(s): started smoking AT AGE 14- smokes 1/2 ppd Past Drug Use History: None Reported Additional Drug Use History / Comment(s): medical marijuana RARELY USES - Past Family History Father Family Medical History: No Reported History Additional Family Medical History / Comment(s): Father is alive but she does not know his medical history. Mother Family Medical History: No Reported History Additional Family Medical History / Comment(s): Mother is alive at age 74 with n o major medical problems. Brother(s) Family Medical History: No Reported History Additional Family Medical History / Comment(s): The patient has 1 brother with no major medical problems. Sister(s) Family Medical History: No Reported History Additional Family Medical History / Comment(s): Patient has one sister and she has irritable bowel syndrome. Daughter(s) Family Medical History: No Reported History Additional Family Medical History / Comment(s): Patient has one daughter with no major medical problems. Medications and Allergies Home Medications Medication Instructions Recorded Confirmed Type ALPRAZolam [Xanax] 1 mg PO BID PRN 02/10/17 02/17/24 History HYDROcodone/APAP 7.5-325MG [[place] 1 tab PO TID PRN 08/26/18 02/17/24 History 7.5-325] Omeprazole [PriLOSEC] 20 mg PO BID 03/10/19 02/17/24 History Amoxic-Pot Clav 875-125Mg 1 tab PO BID 7 Days #14 tab 02/19/24 Rx [Augmentin 875-125] Ondansetron [Zofran] 4 mg PO Q12HR PRN #14 tab 02/19/24 Rx Pantoprazole [Protonix] 40 mg PO DAILY #30 tab 02/19/24 Rx Cephalexin [Keflex] 500 mg PO BID #14 cap 04/26/24 Rx predniSONE 50 mg PO DAILY #5 tab 04/26/24 Rx Allergies Allergy/AdvReac Type Severity Reaction Status Date / Time bupropion [From Wellbutrin] AdvReac Confusion Verified 04/26/24 19:14 pregabalin [From Lyrica] AdvReac Confusion Verified 04/26/24 19:14 Physical Exam Vitals: Vital Signs Temp Pulse Resp BP Pulse Ox 11/24/24 02:00 98.3 F 16 97 11/23/24 23:49 65 16 107/72 100 11/23/24 21:54 64 20 121/86 100 11/23/24 20:00 98.3 F 84 18 106/73 99 11/23/24 14:31 98.2 F 82 20 101/63 98 Intake and Output 11/23/24 11/24/24 11/24/24 22:59 06:59 14:59 Other: Weight 118 kg General appearance: The patient is alert, oriented, appears in no acute distress. HET: Head is normocephalic and atraumatic. Conjunctiva pink. Sclera anicteric. Neck: Supple without lymphadenopathy. Trachea midline. Heart: Regular. Lungs: Equal expansion, normal respiratory effort. Abdomen: Soft, nontender, nondistended. Skin: No rashes. No jaundice. Extremities: Normal skin color and turgor. No pedal edema. Neurological: No focal deficits. Alert and oriented x3. Results CBC & Chem 7: 11/24/24 07:01 11/24/24 07:01 Labs: Abnormal Lab Results - Last 24 Hours (Table) 11/23/24 11/23/2411/23/25 Range/Units 14:45 14:45 21:54 WBC 11.54 H (4.50-10.00) 10*3/uL Hgb 15.1 H (12.0-15.0) g/dL Neutrophils # 8.21 H (1.80-7.70) 10*3/uL Sodium 131 L (137-145) mmol/L Chloride 92 L (98-107) mmol/L BUN 22 H (7-17) mg/dL Glucose 106 H (74-99) mg/dL Urine Appearance Cloudy H (Clear) Urine Ketones 2+ H (Negative) Ur Leukocyte Esterase Small H (Negative) Ur Squamous Epith Cells 8 H (0-4) /hpf Urine Mucus Many H (None) /hpf Assessment and Plan (1) Nausea and vomiting Narrative/Plan: 58-year-old female with chronic intermittent abdominal pain with nausea and vomiting with multiple workup in the past possible IBS. Patient states she has been under a lot of stress and believes when she has increased stress symptoms do tend to come on. Patient also admits to cannabinoid use although not daily but does use at least weekly so need to also consider possible cannabinoid hyperemesis syndrome. Symptoms are now resolved. Was recently started on dicyclomine, will continue that and change omeprazole to Protonix twice daily with follow-up with gastroenterology. Current Visit: Yes Status: Acute Code(s): R11.2 - NAUSEA WITH VOMITING, UNSPECIFIED SNOMED Code(s): 61367430 (2) Abdominal pain Current Visit: No Status: Acute Code(s): R10.9 - UNSPECIFIED ABDOMINAL PAIN SNOMED Code(s): 34706403 (3) Hypokalemia Narrative/Plan: Replace per protocol Current Visit: No Status: Acute Code(s): E87.6 - HYPOKALEMIA SNOMED Code(s): 43343669 Plan: 1. Continue symptomatic and supportive care 2. Continue antiemetics as needed 3. Protonix 40 mg twice daily 4. Will order dicyclomine, patient can continue home dose on discharge 5. Replace potassium per protocol 6. Patient may have low-fat diet 7. If patient tolerates her diet and is replaced for potassium, she is cleared from gastroenterology for discharge 8. Rest of medical management per primary medical team Thank you for this consultation, we will continue to follow. Dr. Paco Conner I agree with the dictator's note, documented as a scribe by Lucero Bolton.
[2024-11-24] MEDS: POTASSIUM CHLORIDE ER 20 MEQ TAB.ER PO SCH (10:04)
--- NOTE | 2024-11-25 01:17 | HP ---
HISTORY AND PHYSICAL Combined History And Physical And Discharge Summary CHIEF COMPLAINT: Abdominal pain, nausea, vomiting. HISTORY OF PRESENT ILLNESS: This is a 58-year-old woman with a past history of multiple medical problems including pacemaker, breast cancer, and abdominal pain, nausea, vomiting, multiple episodes of emesis. The patient had possible history of IBS also. There is no history of fever, rigors, or chills at this time. The patient is feeling much better. The patient reports stress. The patient is keen on going home. Package Delivery Room Service Runner has cleared the patient for discharge. PAST MEDICAL HISTORY: History of fibromyalgia, DJD, history of hypothyroidism. Rest of the history and chart is also reviewed. HOME MEDICATIONS: Imitrex, dose and rest of medications reviewed. ALLERGIES: Keflex. Rest of allergies noted. FAMILY HISTORY: No history of heart disease or strokes in the family. SOCIAL HISTORY: History of smoking, THC. REVIEW OF SYSTEMS: A 14-point review of systems negative except as mentioned earlier. PHYSICAL EXAMINATION: VITAL SIGNS: Pulse is 65, blood pressure 107/72, and respirations 16. CHEST: Clear to auscultation. CARDIOVASCULAR: S1, S2. ABDOMEN: Soft, nontender. LEGS: No edema. NERVOUS SYSTEM: No focal deficits. LABORATORY DATA: Reviewed. ASSESSMENT: 1. Abdominal pain, nausea, vomiting, possible acute gastritis. 2. Possible hyperemesis syndrome. 3. Hypokalemia. 4. History of fibromyalgia. 5. History of degenerative joint disease. 6. History of hypothyroidism. 7. History of cholecystectomy. 8. History of hysterectomy. RECOMMENDATIONS AND DISCUSSION: This 58-year-old woman presented with multiple complex medical issues. At this time, I recommend to continue the current management and symptomatic treatment. The patient has clinically improved significantly. Recommend the patient be discharged and also follow up with the primary physician in the outpatient setting. Follow up labs in the outpatient setting and Protonix. Follow with Dr. Conner as mentioned earlier. Guarded prognosis. Further recommendations to follow. MMODL / IJN: [id number] /
== END 2024-11-24 14:48 | disposition home or self-care (01) ==
LOC: EC 14:21 → 1SOBS 19:44
PROVIDERS: ADMIT Hospitalist; ATTEND Hospitalist
DX: R11.2 Nausea with vomiting, unspecified (principal); E86.0 Dehydration; E87.6 Hypokalemia; R10.13 Epigastric pain; R19.7 Diarrhea, unspecified; M79.7 Fibromyalgia; K21.9 Gastro-esophageal reflux disease without esophagitis; M19.90 Unspecified osteoarthritis, unspecified site; F41.9 Anxiety disorder, unspecified; F43.9 Reaction to severe stress, unspecified; F12.90 Cannabis use, unspecified, uncomplicated; E03.9 Hypothyroidism, unspecified; F17.210 Nicotine dependence, cigarettes, uncomplicated; Z79.899 Other long term (current) drug therapy; Z88.8 Allergy status to other drugs, medicaments and biological substances; Z90.49 Acquired absence of other specified parts of digestive tract; Z85.3 Personal history of malignant neoplasm of breast; Z95.0 Presence of cardiac pacemaker; Z87.19 Personal history of other diseases of the digestive system; Z90.710 Acquired absence of both cervix and uterus
CPT/HCPCS: 96375 ×2; 96376; 96361; 96374; 99285; 36415; 93005; 80053 ×2; 82150; 83690; 83735; 84100; 85025 ×2; 81001; G0378 ×2; J2405; J1171 ×2; J2470 ×2